=== PATIENT | female | born 1960 | race Caucasian/White ===

== ENCOUNTER 2021-07-02 20:44 | Inpatient (IN) ==
[2021-07-02 21:30] LABS: Basophils # (auto) 0.01 K/uL (0-0.2); Basophils % (auto) 0.2 %; Eosinophils # (auto) 0.14 K/uL (0-0.5); Eosinophils % (auto) 2.6 %; Hematocrit (blood only) 29.1 % (37-47); Hemoglobin 9.5 g/dL (12.0-16.0); Immature Granulocytes # (auto) 0.01 K/uL (0.00-0.02); Immature Granulocytes % (auto) 0.2 %; Lymphocytes # (auto) 0.57 K/uL (1.2-3.4); Lymphocytes % (auto) 10.4 %; Mean Corpuscular Hemoglobin 32.8 pg (25-34); Mean Corpuscular Hgb Conc 32.6 g/dL (32-36); Mean Corpuscular Volume 100.3 fL (80-100); Mean Platelet Volume 10.1 fL (7.4-10.4); Monocytes # (auto) 0.39 K/uL (0.11-0.59); Monocytes % (auto) 7.1 %; Neutrophils # (auto) 4.34 K/uL (1.4-6.5); Neutrophils % (auto) 79.5 %; Platelet Count 105 K/uL (130-400); RDW Coefficient of Variation 16.6 % (11.5-14.5); RDW Standard Deviation 57.3 fL (36.4-46.3); White Blood Count 5.46 K/uL (4.8-10.8)
[2021-07-02 21:46] LABS: Alanine Aminotransferase 16 U/L (12-78); Albumin Globulin Ratio 0.3 (0.9-2); Albumin Level 1.6 gm/dl (3.4-5.0); Alkaline Phosphatase 93 U/L (45-117); Aspartate Aminotransferase 43 U/L (15-37); BUN Creatinine Ratio 18.3 (10-20); Bilirubin,Total 4.3 mg/dl (0.2-1); Blood Urea Nitrogen 36 mg/dl (7-18); Calcium 8.3 mg/dl (8.5-10.1); Carbon Dioxide 23 mmol/L (21-32); Chloride 101 mmol/L (98-107); Est GFR (African American) 30.6 ml/min; Est GFR (Non-African American) 26.4 ml/min; Globulin 4.8 gm/dl (2.5-4.0); Glucose 136 mg/dl (70-99); Potassium 3.6 mmol/L (3.5-5.1); Sodium 134 mmol/L (136-145); Total Protein 6.4 gm/dl (6.4-8.2)
[2021-07-02 22:48] LABS: INR 1.6 (0.9-1.1); Prothrombin Time 16.1 Seconds (9.0-12.0)
[2021-07-02 22:59] LABS: NT Pro B Type Natriuretic Pept 2894 pg/ml (0-900)
--- NOTE | 2021-07-02 23:29 | Emergency Department Note ---
Impression & Plan Anasarca ADMIT ED Provider Note HPI: The patient is a 61-year-old female with a past history of hepatic insufficiency, presents the emergency department today with generalized weakness. Patient has also had increasing lower extremity edema and abdominal swelling. She presents with her niece at the bedside. She states that the patient was supposed to go to a gastroenterology appointment today but was so weak they could not get her to the appointment. They contacted 911 and the patient was sent to a local ER. The details of this visit are unclear however they did leave that outside facility and then drove the patient to this ER via private vehicle to be assessed. On my initial assessment the patient is alert and answers simple questions appropriately with one-word answers. Patient reportedly lives alone and has not been doing well on her own. She is generally ill-appearing with jaundice, somewhat slow to respond to my questions, she is without focal deficits. She does have 3-4+ bilateral lower extremity edema. She is otherwise hemodynamically stable and saturating well on room air on my initial assessment. ROS: -General: Generalized weakness, lethargy and jaundice -Extremities: Bilateral lower extremity edema *10 point review systems was conducted and is otherwise negative unless stated above *Outpatient medications and allergy history reviewed PE: General: Alert, obese, frail appearing, jaundiced HEENT: Normocephalic, atraumatic, trachea midline Eyes: Extraocular eye movement is intact, no scleral erythema Pulmonary: Clear to auscultation bilaterally, no wheezing Cardio: Regular rate and rhythm GI: Abdomen is soft, nontender, distended : No suprapubic tenderness MSK: Patient has 3-4+ edema of the bilateral lower extremities with active weeping of serosanguineous fluid Skin: Jaundice, no rash Neuro: Alert, no focal deficits Psychiatric: Cooperative lunchroom monitor: - An order was placed for continuous cardiac monitoring - Patient was noted to be in sinus rhythm with rate of -- EKG: CT ABDOMEN & PELVIS Without Contrast: Diffuse anasarca. Thickening and infiltration the left breast. Cardiomegaly and pacemaker. Trace pleural effusions. Cirrhosis with portal hypertension; ascites, collaterals and splenomegaly. Cholecystectomy. Colonic diverticula without diverticulitis. Nonspecific thickening in the bowel in light of the fluid and the liver disease. Gastric bypass. Hysterectomy Medical Decision Making: Patient presented to the emergency department with family at the bedside, her niece is at the bedside and states that the patient has not been doing well at home recently, states that she is increasingly lethargic, has difficulty walking around her house, states that they are very concerned about the increased swelling in her lower extremities and her abdomen. CT imaging of the abdomen pelvis does show evidence of diffuse anasarca, I believe this is likely the source of the fluid overload. Patient was given a dose of Lasix here in the ED. She does not have any significant transaminitis but she is jaundiced appearing and has an elevated bilirubin. She has a history of alcoholic cirrhosis, ammonia is within normal limits. In addition, CT imaging of the head was performed as the patient was somewhat lethargic and slow to respond at times and this does not show any evidence of an intracranial process. She does remain hemodynamically stable otherwise here in the ED. I discussed these findings with the family, I think the patient is deconditioned, she is obviously not doing well at home I do not think she is in great shape to be living by herself. Family is in agreement and they would like to pursue possible placement. Patient was given a dose of IV Lasix here in the ED for her fluid overload status secondary to anasarca and liver failure. I did discuss the above findings with the on-call hospitalist, Dr. Khan, who graciously excepted the patient to an inpatient bed for further care. Patient was in agreement she was admitted in stable condition. * Diagnosis: Anasarca, peripheral edema, elevated bilirubin levels, difficulty with ADLs * Disposition: Admission Terrell Linn DO Emergency Medicine Past Med/Surg History Medical History (Updated 07/03/21 @ 03:35 by Terrell Linn DO) Anxiety disorder Atrial fibrillation CHF (congestive heart failure) COPD (chronic obstructive pulmonary disease) Fibromyalgia Hepatic insufficiency Hypertension Liver cirrhosis Osteoarthritis Pacemaker IRREGULAR HEART BEAT 1999 Surgical History Gastric bypass status for obesity H/O shoulder surgery LEFT SHOULDER FX REPAIR (HARDWARE PRESENT) History of cataract surgery RT Hx of cholecystectomy Social History Smoking Status: Never smoker Second Hand Exposure: Yes (IN THE PAST ([place])); Hx Alcohol Use: Yes Hx Substance Use: No Preferred Language: Eritrean Communication Ability: Effective Senior Electrical Estimator Required: No Beliefs That Will Affect Care: None Current Living Situation: Alone Feels Safe at Home: Yes Assistive Devices: Denture - Upper, Glasses and Walker Allergies Allergies Allergy/AdvReac Type Severity Reaction Status Date / Time levetiracetam Allergy Intermediate rash/hives Verified 07/02/21 21:28 Home Meds Home Medications Medication Instructions Recorded Confirmed budesonide-formoterol HFA 160 2 puff INHALATION BID 04/22/18 07/02/21 mcg-4.5 mcg/actuation aerosol inhaler (Symbicort) folic acid 1 mg tablet 1 mg PO DAILY 04/22/18 07/02/21 furosemide 80 mg tablet (Lasix) 80 mg PO BID 04/22/18 07/02/21 gabapentin 400 mg capsule 400 mg PO QID 04/22/18 07/02/21 levothyroxine 50 mcg capsule 50 mcg PO QAM 04/22/18 07/02/21 omeprazole magnesium 20 mg 20 mg PO DAILY 04/22/18 07/02/21 tablet,delayed release (Prilosec OTC) propranolol 20 mg tablet 20 mg PO BID 04/22/18 07/02/21 rifaximin 550 mg tablet (Xifaxan) 550 mg PO BID 04/22/18 07/02/21 spironolactone 50 mg tablet 50 mg PO BID 04/22/18 07/02/21 (Aldactone) vitamin B12 500 mcg-folic acid 400 1 tab PO DAILY 04/22/18 07/02/21 mcg tablet Results & Data (ED) Vital Signs Vital Signs - 24 hr 07/02/21 20:46 07/02/21 21:19 07/02/21 21:30 Pulse Rate 99 H 73 69 Pulse Rate from SpO2 Sensor 73 74 Respiratory Rate 16 11 L 7 L Blood Pressure 115/79 Blood Pressure Mean 91 Blood Pressure Position Sitting Pulse Oximetry 99 96 97 Oxygen Delivery Method Room Air Sepsis Recent Fever Within 48 Hours No Sepsis New/Unexplained Change in Mental Status No Sepsis Action Taken by Nursing No Action Required 07/02/21 22:00 07/02/21 22:30 07/02/21 23:00 Pulse Rate 74 70 65 Pulse Rate from SpO2 Sensor 64 66 Respiratory Rate 13 13 10 L Blood Pressure 132/75 115/79 Blood Pressure Mean 94 91 Blood Pressure Position Pulse Oximetry 96 95 Oxygen Delivery Method Sepsis Recent Fever Within 48 Hours Sepsis New/Unexplained Change in Mental Status Sepsis Action Taken by Nursing 07/02/21 23:30 07/03/21 00:11 07/03/21 00:30 Pulse Rate 75 69 65 Pulse Rate from SpO2 Sensor 78 65 Respiratory Rate 17 20 10 L Blood Pressure 104/69 Blood Pressure Mean 80 Blood Pressure Position Pulse Oximetry 97 92 Oxygen Delivery Method Sepsis Recent Fever Within 48 Hours Sepsis New/Unexplained Change in Mental Status Sepsis Action Taken by Nursing 07/03/21 01:00 07/03/21 01:30 07/03/21 02:00 Pulse Rate 69 74 71 Pulse Rate from SpO2 Sensor 70 71 70 Respiratory Rate 12 13 20 Blood Pressure 99/60 L 115/72 Blood Pressure Mean 73 86 Blood Pressure Position Pulse Oximetry 95 97 96 Oxygen Delivery Method Sepsis Recent Fever Within 48 Hours Sepsis New/Unexplained Change in Mental Status Sepsis Action Taken by Nursing Laboratory Data Result diagrams: 07/02/21 20:55 07/02/21 20:55 Lab Results 07/02/21 07/02/21 07/02/21 Range/Units 20:55 20:55 20:55 WBC 5.46 (4.8-10.8) K/uL RBC 2.90 L (4.2-5.4) M/uL Hgb 9.5 L (12.0-16.0) g/dL Hct 29.1 L (37-47) % MCV 100.3 H (80-100) fL MCH 32.8 (25-34) pg MCHC 32.6 (32-36) g/dL RDW Std Deviation 57.3 H (36.4-46.3) fL RDW Coeff of Shirley 16.6 H (11.5-14.5) % Plt Count 105 L (130-400) K/uL MPV 10.1 (7.4-10.4) fL Immature Gran % (Auto) 0.2 % Neut % (Auto) 79.5 % Lymph % (Auto) 10.4 % Lea % (Auto) 7.1 % Eos % (Auto) 2.6 % Baso % (Auto) 0.2 % Neut # (Auto) 4.34 (1.4-6.5) K/uL Lymph # (Auto) 0.57 L (1.2-3.4) K/uL Lea # (Auto) 0.39 (0.11-0.59) K/uL Eos # (Auto) 0.14 (0-0.5) K/uL Baso # (Auto) 0.01 (0-0.2) K/uL Immature Gran # (Auto) 0.01 (0.00-0.02) K/uL PT (9.0-12.0) Seconds INR (0.9-1.1) Sodium 134 L (136-145) mmol/L Potassium 3.6 (3.5-5.1) mmol/L Chloride 101 (98-107) mmol/L Carbon Dioxide 23 (21-32) mmol/L Anion Gap 11.0 (3-11) BUN 36 H (7-18) mg/dl Creatinine 1.97 H (0.6-1.2) mg/dl Est Cr Clr Drug Dosing Not Reportable Est GFR ( Amer) 30.6 ml/min Est GFR (Non-Af Amer) 26.4 ml/min BUN/Creatinine Ratio 18.3 (10-20) Glucose 136 H (70-99) mg/dl Calcium 8.3 L (8.5-10.1) mg/dl Total Bilirubin 4.3 H (0.2-1) mg/dl AST 43 H (15-37) U/L ALT 16 (12-78) U/L Alkaline Phosphatase 93 (45-117) U/L Ammonia (11-32) umol/L NT-Pro-B Natriuret Pep (0-900) pg/ml Total Protein 6.4 (6.4-8.2) gm/dl Albumin 1.6 L (3.4-5.0) gm/dl Globulin 4.8 H (2.5-4.0) gm/dl Albumin/Globulin Ratio 0.3 L (0.9-2) Lipase (73-393) U/L COVID-19 Eval Order Covid19 at [facility] SARS-CoV-2 (PCR) (Negative) 07/02/21 07/02/21 07/02/21 Range/Units 20:55 22:05 22:05 WBC (4.8-10.8) K/uL RBC (4.2-5.4) M/uL Hgb (12.0-16.0) g/dL Hct (37-47) % MCV (80-100) fL MCH (25-34) pg MCHC (32-36) g/dL RDW Std Deviation (36.4-46.3) fL RDW Coeff of Shirley (11.5-14.5) % Plt Count (130-400) K/uL MPV (7.4-10.4) fL Immature Gran % (Auto) % Neut % (Auto) % Lymph % (Auto) % Lea % (Auto) % Eos % (Auto) % Baso % (Auto) % Neut # (Auto) (1.4-6.5) K/uL Lymph # (Auto) (1.2-3.4) K/uL Lea # (Auto) (0.11-0.59) K/uL Eos # (Auto) (0-0.5) K/uL Baso # (Auto) (0-0.2) K/uL Immature Gran # (Auto) (0.00-0.02) K/uL PT 16.1 H (9.0-12.0) Seconds INR 1.6 H (0.9-1.1) Sodium (136-145) mmol/L Potassium (3.5-5.1) mmol/L Chloride (98-107) mmol/L Carbon Dioxide (21-32) mmol/L Anion Gap (3-11) BUN (7-18) mg/dl Creatinine (0.6-1.2) mg/dl Est Cr Clr Drug Dosing Est GFR ( Amer) ml/min Est GFR (Non-Af Amer) ml/min BUN/Creatinine Ratio (10-20) Glucose (70-99) mg/dl Calcium (8.5-10.1) mg/dl Total Bilirubin (0.2-1) mg/dl AST (15-37) U/L ALT (12-78) U/L Alkaline Phosphatase (45-117) U/L Ammonia (11-32) umol/L NT-Pro-B Natriuret Pep 2894 H (0-900) pg/ml Total Protein (6.4-8.2) gm/dl Albumin (3.4-5.0) gm/dl Globulin (2.5-4.0) gm/dl Albumin/Globulin Ratio (0.9-2) Lipase 99 (73-393) U/L COVID-19 Eval Order SARS-CoV-2 (PCR) NEGATIVE (Negative) 07/02/21 Range/Units 22:08 WBC (4.8-10.8) K/uL RBC (4.2-5.4) M/uL Hgb (12.0-16.0) g/dL Hct (37-47) % MCV (80-100) fL MCH (25-34) pg MCHC (32-36) g/dL RDW Std Deviation (36.4-46.3) fL RDW Coeff of Shirley (11.5-14.5) % Plt Count (130-400) K/uL MPV (7.4-10.4) fL Immature Gran % (Auto) % Neut % (Auto) % Lymph % (Auto) % Lea % (Auto) % Eos % (Auto) % Baso % (Auto) % Neut # (Auto) (1.4-6.5) K/uL Lymph # (Auto) (1.2-3.4) K/uL Lea # (Auto) (0.11-0.59) K/uL Eos # (Auto) (0-0.5) K/uL Baso # (Auto) (0-0.2) K/uL Immature Gran # (Auto) (0.00-0.02) K/uL PT (9.0-12.0) Seconds INR (0.9-1.1) Sodium (136-145) mmol/L Potassium (3.5-5.1) mmol/L Chloride (98-107) mmol/L Carbon Dioxide (21-32) mmol/L Anion Gap (3-11) BUN (7-18) mg/dl Creatinine (0.6-1.2) mg/dl Est Cr Clr Drug Dosing Est GFR ( Amer) ml/min Est GFR (Non-Af Amer) ml/min BUN/Creatinine Ratio (10-20) Glucose (70-99) mg/dl Calcium (8.5-10.1) mg/dl Total Bilirubin (0.2-1) mg/dl AST (15-37) U/L ALT (12-78) U/L Alkaline Phosphatase (45-117) U/L Ammonia 24.0 (11-32) umol/L NT-Pro-B Natriuret Pep (0-900) pg/ml Total Protein (6.4-8.2) gm/dl Albumin (3.4-5.0) gm/dl Globulin (2.5-4.0) gm/dl Albumin/Globulin Ratio (0.9-2) Lipase (73-393) U/L COVID-19 Eval Order SARS-CoV-2 (PCR) (Negative) Administered Medications Discontinued Medications Furosemide (Furosemide 40 Mg/4 Ml Vial) 40 mg IV ONE ONE Stop: 07/03/21 01:22 Last Admin: 07/03/21 01:42 Dose: 40 mg Documented by: [id number] Discharge Plan Visit Data Chief Complaint: Edema To Extremity Stated Complaint: CHF, CHEST PAINS, FLUID IN LEGS AND AROUND HEART ED Provider: Terrell Linn Discharge Problem: Anasarca Discharge Instructions Interventions: ED Discharge Assessment Last Done: 07/03/21 02:34
[2021-07-03 00:20] LABS: Lipase 99 U/L (73-393)
[2021-07-03] MEDS ORDERED: FUROSEMIDE 40 MG/4 ML VIAL IV ONE (01:21)
--- NOTE | 2021-07-03 02:28 | History & Physical Report ---
Date of Service July 03, 2021 Assessment & Plan (1) CAD (coronary artery disease): Plan: 61 yo F with hx alcoholic cirrhosis, CHF, CAD, COPD, pacemaker admitted for progressive weakness and worsening anasarca. Anasarca secondary to hepatorenal vs. cardiorenal syndrome - emmett peripheral edema in setting of cirrhosis and CHF with unknown ejection fraction - possible decompensated cirrhosis vs. decompensated congestive heart failure ca using acute renal injury (no baseline creatinine) - lasix switched from 80 mg PO BID to 80 mg IV BID. received 40 mg IV x1 in ED. - daily bmp Alcoholic cirrhosis - MELD score 26, 19.6% 3 month mortality - Child Garrett Class C, life expectancy 1-3 years - no longer drinking alcohol - continue rifaximin, spironolactone, propranolol. - continue Vit B12/folic acid supplementation - ammonia normal, not on lactulose - repeat hepatic panel, PT/INR for monitoring Blood Dyscrasias - Hg 9.5, transfusion threshold <7. Macrocytosis - Plt 105, transfusion threshold <10k without bleeding, <30k if bleeding - trend CBC CHF - per history, no echo on file - bnp [id number] - tte for worsening failure - lasix as above - naidu for improving I/O monitoring Chronic Conditions COPD : daily symbicort, no exacerbation Depression/Anxiety : not on medication therapy Fibromyalgia: Gabapentin 400 QID at home -- maximum maintenance dose with GFR 26 is 600 mg/day in 1-2 divided doses. Dose cut to 300 BID. DVT ppx: chemical ppx in elevated INR. SCDs FEN/GI: heart healthy, low salt Bowel regimen: NA Code Status: Full Code Dispo: Med/Surg (2) Depression: (3) Anxiety disorder: (4) CHF (congestive heart failure): (5) COPD (chronic obstructive pulmonary disease): (6) Liver cirrhosis: (7) Pacemaker: (8) Hypertension: (9) Acute kidney injury: History of Present Illness Primary Care Provider: Yemi Guidry 61 yo F with hx alcoholic cirrhosis, CHF, CAD, COPD, pacemaker brought to ER by her daughter for feeling progressively ill over the past 2 to 3 weeks. She denies any particular event that happened a few weeks ago but says that she feels like she has been doing very well. She denies any fevers chills, chest pain, shortness of breath. She feels generally weak currently lives alone at home and her daughter helps take care of her. She follows with a [facility] hepatologists and had an appointment on 07/04 to follow-up with them. She has been able to take all of her medications and say no recent changes been made. Allergies Allergy/AdvReac Type Severity Reaction Status Date / Time levetiracetam Allergy Intermediate rash/hives Verified 07/02/21 21:28 Home Medications Medication Instructions Recorded Confirmed Type budesonide-formoterol HFA 160 2 puff INHALATION BID 04/22/18 07/02/21 History mcg-4.5 mcg/actuation aerosol inhaler (Symbicort) folic acid 1 mg tablet 1 mg PO DAILY 04/22/18 07/02/21 History furosemide 80 mg tablet (Lasix) 80 mg PO BID 04/22/18 07/02/21 History gabapentin 400 mg capsule 400 mg PO QID 04/22/18 07/02/21 History levothyroxine 50 mcg capsule 50 mcg PO QAM 04/22/18 07/02/21 History omeprazole magnesium 20 mg 20 mg PO DAILY 04/22/18 07/02/21 History tablet,delayed release (Prilosec OTC) propranolol 20 mg tablet 20 mg PO BID 04/22/18 07/02/21 History rifaximin 550 mg tablet (Xifaxan) 550 mg PO BID 04/22/18 07/02/21 History spironolactone 50 mg tablet 50 mg PO BID 04/22/18 07/02/21 History (Aldactone) vitamin B12 500 mcg-folic acid 400 1 tab PO DAILY 04/22/18 07/02/21 History mcg tablet Past Med/Surg History Medical History (Updated 07/03/21 @ 03:35 by Terrell Linn DO) Anxiety disorder Atrial fibrillation CHF (congestive heart failure) COPD (chronic obstructive pulmonary disease) Fibromyalgia Hepatic insufficiency Hypertension Liver cirrhosis Osteoarthritis Pacemaker IRREGULAR HEART BEAT 1999 Surgical History Gastric bypass status for obesity H/O shoulder surgery LEFT SHOULDER FX REPAIR (HARDWARE PRESENT) History of cataract surgery RT Hx of cholecystectomy Social History Smoking Status: Never smoker Second Hand 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)); Hx Alcohol Use: Yes Hx Substance Use: No Preferred Language: Pashto Communication Ability: Effective Professor Of Theology Required: No Beliefs That Will Affect Care: None Current Living Situation: Alone Feels Safe at Home: Yes Assistive Devices: Denture - Upper, Glasses and Walker Review of Systems Constitutional: no fever, no chills, no body aches and no fatigue Respiratory: no cough and no dyspnea Cardiovascular: no chest pain, no dyspnea and no edema Gastrointestinal: no abdominal pain, no nausea, no vomiting, no constipation and no diarrhea/loose stools Genitourinary: no dysuria Neurologic: no tingling, no numbness, no dizziness and no confusion Physical Exam Physical Exam: Constitutional: obese, jaundiced, lethargic appearing, in no apparent distress Eyes: EOMI, pupils equal and reactive bilaterally, no scleral icterus Cardiac: RRR,2/6 systolic murmur, gallops or rubs. Normal S1, S2 Pulm: CTA BL, no wheezes, rhonchi, crackles or rubs, moving air well throughout both lungs on room air Abd: soft, nontender, distended, somewhat firm but compressible, normal bowel sounds, no rebound or guarding. 1+ pitting edema on abdomen. multiple excoriations of abdomen. Extremities: 4+ pitting edema to the hips bilaterally, seeping fluid from extremities Neuro: fatigued, A&Ox3 Results & Data Results & Data ([facility]) Vital Signs (Past 12 Hours) Vital Signs Pulse Resp BP Pulse Ox 07/03/21 02:00 71 20 115/72 96 07/03/21 01:30 74 13 97 07/03/21 01:00 69 12 99/60 L 95 07/03/21 00:30 65 10 L 92 07/03/21 00:11 69 20 104/69 07/02/21 23:30 75 17 97 07/02/21 23:00 65 10 L 115/79 95 07/02/21 22:30 70 13 96 07/02/21 22:00 74 13 132/75 07/02/21 21:30 69 7 L 97 07/02/21 21:19 73 11 L 96 07/02/21 20:46 99 H 16 115/79 99 Laboratory Results Laboratory Results WBC 5.46 K/uL (4.8-10.8) 07/02/21 20:55 RBC 2.90 M/uL (4.2-5.4) L 07/02/21 20:55 Hgb 9.5 g/dL (12.0-16.0) L 07/02/21 20:55 Hct 29.1 % (37-47) L 07/02/21 20:55 MCV 100.3 fL (80-100) H 07/02/21 20:55 MCH 32.8 pg (25-34) 07/02/21 20:55 MCHC 32.6 g/dL (32-36) 07/02/21 20:55 RDW Std Deviation 57.3 fL (36.4-46.3) H 07/02/21 20:55 RDW Coeff of Shirley 16.6 % (11.5-14.5) H 07/02/21 20:55 Plt Count 105 K/uL (130-400) L 07/02/21 20:55 MPV 10.1 fL (7.4-10.4) 07/02/21 20:55 Immature Gran % (Auto) 0.2 % 07/02/21 20:55 Neut % (Auto) 79.5 % 07/02/21 20:55 Lymph % (Auto) 10.4 % 07/02/21 20:55 Cataño % (Auto) 7.1 % 07/02/21 20:55 Eos % (Auto) 2.6 % 07/02/21 20:55 Baso % (Auto) 0.2 % 07/02/21 20:55 Neut # (Auto) 4.34 K/uL (1.4-6.5) 07/02/21 20:55 Lymph # (Auto) 0.57 K/uL (1.2-3.4) L 07/02/21 20:55 Cataño # (Auto) 0.39 K/uL (0.11-0.59) 07/02/21 20:55 Eos # (Auto) 0.14 K/uL (0-0.5) 07/02/21 20:55 Baso # (Auto) 0.01 K/uL (0-0.2) 07/02/21 20:55 Immature Gran # (Auto) 0.01 K/uL (0.00-0.02) 07/02/21 20:55 PT 16.1 Seconds (9.0-12.0) H 07/02/21 22:05 INR 1.6 (0.9-1.1) H 07/02/21 22:05 Sodium 134 mmol/L (136-145) L 07/02/21 20:55 Potassium 3.6 mmol/L (3.5-5.1) 07/02/21 20:55 Chloride 101 mmol/L (98-107) 07/02/21 20:55 Carbon Dioxide 23 mmol/L (21-32) 07/02/21 20:55 Anion Gap 11.0 (3-11) 07/02/21 20:55 BUN 36 mg/dl (7-18) H 07/02/21 20:55 Creatinine 1.97 mg/dl (0.6-1.2) H 07/02/21 20:55 Est Cr Clr Drug Dosing Not Reportable 07/02/21 20:55 Est GFR ( Amer) 30.6 ml/min 07/02/21 20:55 Est GFR (Non-Af Amer) 26.4 ml/min 07/02/21 20:55 BUN/Creatinine Ratio 18.3 (10-20) 07/02/21 20:55 Glucose 136 mg/dl (70-99) H 07/02/21 20:55 Calcium 8.3 mg/dl (8.5-10.1) L 07/02/21 20:55 Total Bilirubin 4.3 mg/dl (0.2-1) H 07/02/21 20:55 AST 43 U/L (15-37) H 07/02/21 20:55 ALT 16 U/L (12-78) 07/02/21 20:55 Alkaline Phosphatase 93 U/L (45-117) 07/02/21 20:55 Ammonia 24.0 umol/L (11-32) 07/02/21 22:08 NT-Pro-B Natriuret Pep 2894 pg/ml (0-900) H 07/02/21 22:05 Total Protein 6.4 gm/dl (6.4-8.2) 07/02/21 20:55 Albumin 1.6 gm/dl (3.4-5.0) L 07/02/21 20:55 Globulin 4.8 gm/dl (2.5-4.0) H 07/02/21 20:55 Albumin/Globulin Ratio 0.3 (0.9-2) L 07/02/21 20:55 Lipase 99 U/L (73-393) 07/02/21 22:05 COVID-19 Eval Order Covid19 at [facility] 07/02/21 20:55 SARS-CoV-2 (PCR) NEGATIVE (Negative) 07/02/21 20:55 Supervising Physician Co-Signing Physician Notes Patient seen and examined, chart reviewed, case discussed with Dr. Munguia and I agree with her assessment and plan as above. In brief, patient is a 61yo female with alcoholic cirrhosis of the liver presenting with 2-3 weeks of progressive edema, weight gain, overall doing poorly at home. Denies fever, but has had some chills. Denies cough, SOB, chest pain, abdominal pain, nausea, vomiting, diarrhea, hematemesis Exam - afebrile, HD stable, NAD Skin -+jaundice HEENT - MMM, neck supple Heart - +S1/S2, regular, no m/r/g Lungs - CTA Abd - distended, soft, NT, bulging flanks Ext - 4+ pitting edema of bilateral LE Neuro - slow to respond, no focal deficits, no asterixis Labs and images reviewed CBC consistent with underlying liver disease - macrocytic anemia dn thrombocytopenia Elevated INR of 1.6 Elevated BUn 36, Cr 1.97 with unknown baseline Tbili=4.3 [id number] Unknown baseline labs Assessment/Plan- 61yo female with hepatic cirrhosis presenting with progressive decline, edema, weight gain. Uncertain if laboratory findings are acutely worse than baseline - will request outpatient records and latest blood work. Lasix 80mg IV BID with careful attention to renal function and electrolytes PT/OT evaluation for possible placement needs Continue Spironolactone, Rifaximin, Propranolol Check 2D echo Resident Activity Tracking Resident Involvement: Resident Care Provided Care Provided: Adult [facility] Medicine
[2021-07-03 04:40] LABS: Appearance Urine Clear (Clear); Bilirubin Urine Negative (Negative); Blood Urine Negative (Negative); Color Urine Yellow; Glucose Urine UA Negative (Negative); Ketones Urine Negative (Negative); Leukocyte Esterase Urine Negative (Negative); Nitrite Urine Negative (Negative); Protein Urine Negative (Negative); Specific Gravity Urine 1.008 (1.000-1.030); Urobilinogen Urine Negative (Negative)
--- NOTE | 2021-07-03 05:16 | Billing Data ---
Date of Service July 03, 2021 Coding Level of Care Code 98875 Initial Inpt Care Lvl 3
[2021-07-03] MEDS ORDERED: FLUARIX QUADRIVALENT 0.5 ML SYR IM ONE (06:24)
[2021-07-03] MEDS ORDERED: LEVOTHYROXINE SODIUM 50 MCG TABLET PO SCH (06:30)
--- NOTE | 2021-07-03 06:52 | CT Scan Report ---
CT head/brain wo con CLINICAL HISTORY: 61 years-old Female with AMS. Acutely altered mental status TECHNIQUE: Multiple axial CT images of the head were obtained without contrast. A dose lowering tech nique was utilized adhering to the principles of ALARA. COMPARISON: None. FINDINGS: No acute intracranial hemorrhage, midline shift, intracranial mass, hydrocephalus, territorial ischem ia or abnormal extra-axial collection. Age-related involutional changes. Mild white matter hypodensit ies suggest chronic microvascular ischemic disease. Ill-defined area of decreased attenuation measuri ng approximately 1.3 cm within the right frontal lobe centrum semiovale on image 25 series 2, likely on a basis of chronic microvascular ischemic disease. The calvarium is intact. Prior bilateral lens repair. The paranasal sinuses, mastoid air cells, and m iddle ear cavities are clear. IMPRESSION: No acute intracranial abnormality. ACT 112: Negative or not required by law. The above report was generated using voice recognition software. It may contain grammatical, syntax o r spelling errors. Electronically signed by: Vicente Calvillo M.D. 07/03/2021 6:51 AM
[2021-07-03] MEDS: FUROSEMIDE 40 MG/4 ML VIAL IV SCH ×2 (08:03→20:47)
[2021-07-03] MEDS: PROPRANOLOL HCL 20 MG TAB PO SCH (08:04)
[2021-07-03] MEDS: SPIRONOLACTONE 25 MG TAB PO SCH ×2 (08:04→20:45)
[2021-07-03] MEDS: PANTOprazole 40 MG TAB PO SCH (08:04)
[2021-07-03] MEDS: GABAPENTIN 300 MG CAP PO SCH ×2 (08:05→20:45)
[2021-07-03] MEDS: rifAXIMin 550 MG TABLET PO SCH ×2 (08:05→20:45)
[2021-07-03] MEDS: FLUTICASONE/VILANTEROL 100/25MCG 14 PUFFS/INHALER INH SCH (08:19)
--- NOTE | 2021-07-03 08:20 | CT Scan Report ---
CT SCAN OF THE ABDOMEN AND PELVIS WITHOUT IV CONTRAST CLINICAL HISTORY: Jaundice. Generalized edema. COMPARISON STUDY: Fluoroscopic upper GI series dated 01/22/2015. TECHNIQUE: CT scan of the abdomen and pelvis is performed from the lung bases to the proximal femora. Images are reviewed in the axial, sagittal, and coronal planes. IV contrast was not administered for this examination. Note that the examination is significantly suboptimal without oral and IV contrast . There is also motion artifact, and streak artifact from the arms which could not be elevated above the abdomen. A dose lowering technique was utilized adhering to the principles of ALARA. CT DOSE: 2538.29 mGy.cm FINDINGS: Lung bases: The heart is mildly enlarged and without pericardial effusion. Pacemaker leads are in lawrence ce. There are trace pleural effusions with dependent atelectasis. There is a small hiatal hernia. Eso phageal varices are noted. Liver: The unenhanced liver is cirrhotic in morphology and heterogeneous in attenuation. There is mil d hypertrophy of the left lobe and nodularity of the hepatic surface contour. There is no intrahepati c biliary ductal dilatation. Gallbladder: Surgically absent noting clips in the gallbladder fossa. Spleen: Top normal in size and homogeneous in attenuation. Pancreas: The unenhanced pancreas is atrophic and grossly unremarkable. Adrenal glands: Unremarkable. Kidneys: The unenhanced kidneys are atrophic and without hydronephrosis. There are no renal calculi i dentified. There is no evidence of contour deforming renal mass lesion. Abdominal vasculature: The abdominal aorta is normal in course and caliber noting advanced atheroscle rotic calcification. Bowel: There is moderate to advanced colonic diverticulosis without clear CT evidence of acute divert iculitis. No bowel obstruction is identified wall thickening of the right colon is nonspecific and li jamir represents portal colopathy. Postoperative change is consistent with a history of gastric bypass surgery. The appendix is normal as visualized. Peritoneum: There is a moderate volume of abdominopelvic ascites. No intraperitoneal free air is seen . Postoperative change is noted in the ventral abdominal wall. Lymphadenopathy: There are numerous mildly enlarged upper abdominal lymph nodes. A gastrohepatic node measures 17 mm in short axis. Pelvic viscera: The bladder is normal as visualized. The uterus is surgically absent. No adnexal lesi on is seen. Skeletal structures: The skeletal structures are osteopenic. No lytic or blastic lesions are seen. Th ere are healed left-sided rib fractures. Mild to moderate lumbosacral spondylosis is observed. Soft tissues: There is anasarca of the body wall. Asymmetric soft tissue edema is seen within the lef t chest wall and in the left breast where there is overlying dermal thickening. IMPRESSION: 1. Significantly suboptimal examination without oral and IV contrast. The examination is also comprom ised by streak and motion. 2. Cirrhotic liver morphology. 3. A moderate volume of abdominopelvic ascites and esophageal varices indicate portal hypertension. 4. Wall thickening of the right colon is nonspecific and likely related to portal colopathy. Clinical correlation will be required. 5. Cardiomegaly and small pleural effusions. 6. Mildly enlarged upper abdominal lymph nodes are nonspecific and likely related to chronic liver di sease. 7. There is anasarca of the body wall. 8. Asymmetric soft tissue edema is noted in the left chest wall/breast with overlying dermal thickeni ng. Correlate clinically. 9. Additional findings as above. ACT 112: Negative or not required by law. Electronically signed by: Ganesh Crowley M.D. 07/03/2021 8:19 AM
--- NOTE | 2021-07-03 08:36 | XRay Report ---
XR chest 1V portable HISTORY: 61 years-old Female chf acute shortness of breath with congestive heart failure COMPARISON: CT abdomen and pelvis of same day TECHNIQUE: Portable AP view of the chest FINDINGS: Cardiac silhouette is enlarged. Left subclavian pacer. Mild pulmonary vascular congestion without ove rt pulmonary edema. Trace pleural effusions. No pneumothorax. Degenerative changes of the shoulders a nd spine with ORIF changes of the left proximal humerus. IMPRESSION: 1. Cardiomegaly and pulmonary vascular congestion without overt pulmonary edema. 2. Trace pleural effusions. ACT 112: Negative or not required by law. The above report was generated using voice recognition software. It may contain grammatical, syntax o r spelling errors. Electronically signed by: Vicente Calvillo M.D. 07/03/2021 8:34 AM
--- NOTE | 2021-07-03 08:48 | Electrocardiogram Report ---
Test Reason : Blood Pressure : / mmHG Vent. Rate : 069 BPM Atrial Rate : 086 BPM P-R Int : 000 ms QRS Dur : 072 ms QT Int : 418 ms P-R-T Axes : 000 -19 166 degrees QTc Int : 447 ms Atrial fibrillation with occasional ventricular-paced complexes Low voltage QRS Possible Old Inferior infarct Possible Old Anterolateral infarct Abnormal ECG No previous ECGs available Confirmed by Laurent Sheehan ([id number]) on 07/03/2021 8:47:37 AM Referred By: REFERRED SELF Confirmed By:Laurent Sheehan
[2021-07-03] MEDS ORDERED: FUROSEMIDE 40 MG/4 ML VIAL IV SCH (09:00)
[2021-07-03] MEDS ORDERED: NON-FORMULARY MEDICATION (Vitamin B12-Folic Acid 500-400 mcg Tablet) PO SCH (09:00)
[2021-07-03] MEDS ORDERED: GABAPENTIN 400 MG CAP PO SCH ×2 (09:00)
--- NOTE | 2021-07-03 09:20 | XCELERA ---
[id number]
[2021-07-03 10:05] LABS: Albumin Level 1.6 gm/dl (3.4-5.0); BUN Creatinine Ratio 21.4 (10-20); Bilirubin,Total 4.4 mg/dl (0.2-1); Calcium 8.5 mg/dl (8.5-10.1); Creatinine Clr Calc Pharmacy 44.3 ml/min; Est GFR (African American) 37.6 ml/min; Est GFR (Non-African American) 32.5 ml/min; Potassium 3.6 mmol/L (3.5-5.1); Total Protein 5.9 gm/dl (6.4-8.2)
[2021-07-03 14:28] LABS: Hematocrit (blood only) 29.1 % (37-47); Hemoglobin 9.6 g/dL (12.0-16.0); Mean Corpuscular Hemoglobin 32.4 pg (25-34); Mean Corpuscular Volume 98.3 fL (80-100); RDW Coefficient of Variation 16.4 % (11.5-14.5); RDW Standard Deviation 55.8 fL (36.4-46.3); Red Blood Count 2.96 M/uL (4.2-5.4); White Blood Count 5.88 K/uL (4.8-10.8)
[2021-07-03 14:42] LABS: INR 1.6 (0.9-1.1)
[2021-07-03 14:51] LABS: Mean Platelet Volume 10.5 fL (7.4-10.4); Platelet Count 70 K/uL (130-400)
[2021-07-03 14:52] LABS: Acanthocytes 1+; Basophils # (auto) 0.03 K/uL (0-0.2); Basophils % (auto) 0.5 %; Echinocytes 2+; Eosinophils # (auto) 0.17 K/uL (0-0.5); Eosinophils % (auto) 2.9 %; Immature Granulocytes # (auto) 0.02 K/uL (0.00-0.02); Immature Granulocytes % (auto) 0.3 %; Lymphocytes # (auto) 0.51 K/uL (1.2-3.4); Lymphocytes % (auto) 8.7 %; Monocytes # (auto) 0.35 K/uL (0.11-0.59); Neutrophils % (auto) 81.6 %; Platelet Estimate Decreased (Normal)
[2021-07-03] MEDS: oxyCODONE HCL IR 5 MG TAB (IMMEDIATE RELEASE) PO PRN ×2 (15:44→20:39)
--- NOTE | 2021-07-03 16:33 | Gastrointestinal Consultation ---
Date of Consultation July 03, 2021 Assessment & Plan (1) Liver cirrhosis: (2) Ascites due to alcoholic cirrhosis: (3) Anasarca: (4) Dependent edema: (5) Hepatic encephalopathy: (6) Acute kidney injury: (7) Hypoalbuminemia: (8) Portal hypertension with esophageal varices: (9) Hepatic insufficiency: (10) Coagulopathy: (11) Thrombocytopenia: (12) Gastric bypass status for obesity: (13) Hx of cholecystectomy: Impression is progression of advanced chronic liver disease with portal hypertension complicated by progressive ascites and edema, encephalopathy, jaundice, renal insufficiency, possible acute kidney injury, hypoalbuminemia. We do not know if there has been acute deterioration in renal function as we do not have any recent lab testing to see if BUN/Cr are increasing acutely. She could have prerenal azotemia, ATN, or developing hepatorenal syndrome. I recommend continuing the rifaximin and midodrine, discontinuing lasix, aldactone, and propranolol, give albumin 1 gm/kg up to 100 gm per day for 2 days, monitor BUN/Cr and electrolytes, urine output, check spot urine electrolytes, and consult nephrology LORA for evaluation of renal function and management of fluids. Diagnostic and therapeutic paracentesis should be performed with withdrawal of no more than 6 liters of ascites, specimens to the lab for WBC count and differential, gm stain and culture, albumin, and simultaneous blood draw for serum albumin to calculate serum to ascites albumin gradient. We will follow the patient with the care team and assist as needed. 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 The patient and her daughter described progressive deterioration since April with increase in dependent edema, increasing ascites, jaundice, episodes of mental confusion, generalized weakness. She was evaluated at [facility] in [place] for management of cirrhosis, and a transplant workup was recommended, but the patient missed her follow up appointment in April. At home she was taking spironolactone, midodrine propranolol, Xifaxan, and folic acid. Lasix was prescribed but she was not taking this, She came to [facility] due to concern for progressive deterioration and unmanageable dependent edema with a right leg pretibial injury. At [facility] she was found to have elevated BUN and Creatinine, with no previous values for trending of possible acute kidney injury She had blessing en Y gastric bypass for management of obesity in the distant past. Allergies Allergy/AdvReac Type Severity Reaction Status Date / Time levetiracetam Allergy Intermediate rash/hives Verified 07/02/21 21:28 Home Medications Medication Instructions Recorded Confirmed Type budesonide-formoterol HFA 160 2 puff INHALATION BID 04/22/18 07/02/21 History mcg-4.5 mcg/actuation aerosol inhaler (Symbicort) folic acid 1 mg tablet 1 mg PO DAILY 04/22/18 07/02/21 History furosemide 80 mg tablet (Lasix) 80 mg PO BID 04/22/18 07/02/21 History gabapentin 400 mg capsule 400 mg PO QID 04/22/18 07/02/21 History levothyroxine 50 mcg capsule 50 mcg PO QAM 04/22/18 07/02/21 History omeprazole magnesium 20 mg 20 mg PO DAILY 04/22/18 07/02/21 History tablet,delayed release (Prilosec OTC) propranolol 20 mg tablet 20 mg PO BID 04/22/18 07/02/21 History rifaximin 550 mg tablet (Xifaxan) 550 mg PO BID 04/22/18 07/02/21 History spironolactone 50 mg tablet 50 mg PO BID 04/22/18 07/02/21 History (Aldactone) vitamin B12 500 mcg-folic acid 400 1 tab PO DAILY 04/22/18 07/02/21 History mcg tablet Patient History Medical History (Updated 07/03/21 @ 16:14 by Leonid Cerna MD) Anxiety disorder Atrial fibrillation CHF (congestive heart failure) COPD (chronic obstructive pulmonary disease) Fibromyalgia Hepatic insufficiency Hypertension Liver cirrhosis Osteoarthritis Pacemaker IRREGULAR HEART BEAT 1999 Surgical History Gastric bypass status for obesity H/O shoulder surgery LEFT SHOULDER FX REPAIR (HARDWARE PRESENT) History of cataract surgery RT Hx of cholecystectomy Social History Smoking Status: Never smoker Second Hand Exposure: No; Do You Dip or Chew Tobacco: No; Hx Alcohol Use: Yes Alcohol type: wine and hard liquor Hx Substance Use: No Preferred Language: Turkmen Communication Ability: Effective Bottle Label Inspector Required: No Beliefs That Will Affect Care: None Current Living Situation: Alone Other Information That Helps Us Care for You: No Feels Safe at Home: Yes Safety Concerns: Feels Safe At This Time Assistive Devices: Walker Review of Systems Respiratory: She denied shortness of breath Cardiovascular: Additional Comments: Positive for recent substernal chest discomfort, not exertion related Gastrointestinal: She denied hematemesis, melena, hematochezia Neurologic: Episodic confusion Physical Exam Constitutional: Afebrile, Jaundiced, she is alert but appears lethargic, with slurred speech, but oriented X 3 and cooperative, conversant, normal thought processes Eyes: scleral icterus Respiratory: normal respiratory effort, able to speak in complete sentences and symmetric chest movement Auscultation: lungs clear to auscultation bilaterally dyspneic at rest with tachypnea but she denies shortness of breath Cardiovascular: Normal heart tones and rhythm Gastrointestinal (Abdomen): Obese distended abdomen which is soft without guarding, without localized or generalized tenderness, I was unable to demonstr ate shifting dullness or fluid wave. Abdominal wall edema Musculoskeletal: Severe lower extremity edema, the right pretibial wound is covered and not visible Skin: Obvious Jaundice Neurologic: Alert, oriented and conversant with slurred speech, appropriate responses. Results & Data ([facility]) Vital Signs (Past 12 Hours) Vital Signs Temp Pulse Resp BP Pulse Ox 07/03/21 15:37 36.6 C 75 16 118/79 96 07/03/21 07:47 36.2 C L 73 16 108/74 96 Laboratory Results Laboratory Results WBC 5.88 K/uL (4.8-10.8) 07/03/21 14:11 RBC 2.96 M/uL (4.2-5.4) L 07/03/21 14:11 Hgb 9.6 g/dL (12.0-16.0) L 07/03/21 14:11 Hct 29.1 % (37-47) L 07/03/21 14:11 MCV 98.3 fL (80-100) 07/03/21 14:11 MCH 32.4 pg (25-34) 07/03/21 14:11 MCHC 33.0 g/dL (32-36) 07/03/21 14:11 RDW Std Deviation 55.8 fL (36.4-46.3) H 07/03/21 14:11 RDW Coeff of Shirley 16.4 % (11.5-14.5) H 07/03/21 14:11 Plt Count 70 K/uL (130-400) L 07/03/21 14:11 MPV 10.5 fL (7.4-10.4) H 07/03/21 14:11 Immature Gran % (Auto) 0.3 % 07/03/21 14:11 Neut % (Auto) 81.6 % 07/03/21 14:11 Lymph % (Auto) 8.7 % 07/03/21 14:11 Lajas % (Auto) 6.0 % 07/03/21 14:11 Eos % (Auto) 2.9 % 07/03/21 14:11 Baso % (Auto) 0.5 % 07/03/21 14:11 Neut # (Auto) 4.80 K/uL (1.4-6.5) 07/03/21 14:11 Lymph # (Auto) 0.51 K/uL (1.2-3.4) L 07/03/21 14:11 Lajas # (Auto) 0.35 K/uL (0.11-0.59) 07/03/21 14:11 Eos # (Auto) 0.17 K/uL (0-0.5) 07/03/21 14:11 Baso # (Auto) 0.03 K/uL (0-0.2) 07/03/21 14:11 Immature Gran # (Auto) 0.02 K/uL (0.00-0.02) 07/03/21 14:11 Absolute Nucleated RBC Cancelled 07/03/21 09:48 Nucleated RBC % (auto) Cancelled 07/03/21 09:48 Neutrophils % (Manual) Cancelled 07/03/21 09:48 Band Neutrophils % Cancelled 07/03/21 09:48 Lymphocytes % (Manual) Cancelled 07/03/21 09:48 Prolymphocyte % Cancelled 07/03/21 09:48 Reactive Lymphs % (Man) Cancelled 07/03/21 09:48 Monocytes % (Manual) Cancelled 07/03/21 09:48 Eosinophils % (Manual) Cancelled 07/03/21 09:48 Basophils % (Manual) Cancelled 07/03/21 09:48 Metamyelocytes % (Man) Cancelled 07/03/21 09:48 Myelocytes % (Man) Cancelled 07/03/21 09:48 Promyelocytes % (Man) Cancelled 07/03/21 09:48 Blast Cells % (Manual) Cancelled 07/03/21 09:48 Plasma Cell % (Manual) Cancelled 07/03/21 09:48 Other Cells % Cancelled 07/03/21 09:48 Nucleated RBC % Cancelled 07/03/21 09:48 Neutrophils # (Manual) Cancelled 07/03/21 09:48 Band Neutrophils # Cancelled 07/03/21 09:48 Total Absolute Neuts Cancelled 07/03/21 09:48 Lymphocytes # (Manual) Cancelled 07/03/21 09:48 Prolymphocyte # Cancelled 07/03/21 09:48 Reactive Lymphs # Cancelled 07/03/21 09:48 Total Abs Lymphocytes Cancelled 07/03/21 09:48 Monocytes # (Manual) Cancelled 07/03/21 09:48 Eosinophils # (Manual) Cancelled 07/03/21 09:48 Basophils # (Manual) Cancelled 07/03/21 09:48 Metamyelocytes # (Man) Cancelled 07/03/21 09:48 Myelocytes # (Manual) Cancelled 07/03/21 09:48 Promyelocytes # (Man) Cancelled 07/03/21 09:48 Blast Cells # (Man) Cancelled 07/03/21 09:48 Plasma Cell # (Manual) Cancelled 07/03/21 09:48 Other Cells # Cancelled 07/03/21 09:48 Nucleated RBCs # (Man) Cancelled 07/03/21 09:48 Hypersegmented Neuts Cancelled 07/03/21 09:48 Hyposegmented Neuts Cancelled 07/03/21 09:48 Hypogranular Neuts Cancelled 07/03/21 09:48 Large Granular Lymphs Cancelled 07/03/21 09:48 # Lrg Granular Lymphs Cancelled 07/03/21 09:48 Hairy Cells Cancelled 07/03/21 09:48 Smudge Cells Cancelled 07/03/21 09:48 Toxic Granulation Cancelled 07/03/21 09:48 Toxic Vacuolation Cancelled 07/03/21 09:48 Dohle Bodies Cancelled 07/03/21 09:48 Kaz Rods Cancelled 07/03/21 09:48 Platelet Estimate Decreased (Normal) L 07/03/21 14:11 Hypogranular Platelets Cancelled 07/03/21 09:48 Clumped Platelets Cancelled 07/03/21 09:48 Giant Platelets Cancelled 07/03/21 09:48 Platelet Satelliting Cancelled 07/03/21 09:48 RBC Morphology Cancelled 07/03/21 09:48 Polychromasia Cancelled 07/03/21 09:48 Hypochromasia Cancelled 07/03/21 09:48 Poikilocytosis Cancelled 07/03/21 09:48 Basophilic Stippling Cancelled 07/03/21 09:48 Anisocytosis Cancelled 07/03/21 09:48 Microcytosis Cancelled 07/03/21 09:48 Macrocytosis Cancelled 07/03/21 09:48 Spherocytes Cancelled 07/03/21 09:48 Pappenheimer Bodies Cancelled 07/03/21 09:48 Sickle Cells Cancelled 07/03/21 09:48 Target Cells Cancelled 07/03/21 09:48 Tear Drop Cells Cancelled 07/03/21 09:48 Ovalocytes Cancelled 07/03/21 09:48 Stomatocytes Cancelled 07/03/21 09:48 Mahmood-Selfridge Bodies Cancelled 07/03/21 09:48 Echinocytes 2+ 07/03/21 14:11 Acanthocytes (Spur) 1+ 07/03/21 14:11 Rouleaux Cancelled 07/03/21 09:48 RBC Agglutinates Cancelled 07/03/21 09:48 Schistocytes Cancelled 07/03/21 09:48 RBC Morph Comment Cancelled 07/03/21 09:48 Sezary Cell Cancelled 07/03/21 09:48 PT 16.0 Seconds (9.0-12.0) H 07/03/21 14:11 INR 1.6 (0.9-1.1) H 07/03/21 14:11 Sodium 134 mmol/L (136-145) L 07/03/21 09:01 Potassium 3.6 mmol/L (3.5-5.1) 07/03/21 09:01 Chloride 101 mmol/L (98-107) 07/03/21 09:01 Carbon Dioxide 25 mmol/L (21-32) 07/03/21 09:01 Anion Gap 8.0 (3-11) 07/03/21 09:01 BUN 35 mg/dl (7-18) H 07/03/21 09:01 Creatinine 1.66 mg/dl (0.6-1.2) H D 07/03/21 09:01 Est Cr Clr Drug Dosing 44.3 ml/min 07/03/21 09:01 Est GFR ( Amer) 37.6 ml/min 07/03/21 09:01 Est GFR (Non-Af Amer) 32.5 ml/min 07/03/21 09:01 BUN/Creatinine Ratio 21.4 (10-20) H 07/03/21 09:01 Glucose 96 mg/dl (70-99) 07/03/21 09:01 Calcium 8.5 mg/dl (8.5-10.1) 07/03/21 09:01 Total Bilirubin 4.4 mg/dl (0.2-1) H 07/03/21 09:01 Direct Bilirubin 2.0 mg/dl (0-0.2) H 07/03/21 09:01 AST 49 U/L (15-37) H 07/03/21 09:01 ALT 16 U/L (12-78) 07/03/21 09:01 Alkaline Phosphatase 88 U/L (45-117) 07/03/21 09:01 Ammonia 24.0 umol/L (11-32) 07/02/21 22:08 NT-Pro-B Natriuret Pep 2894 pg/ml (0-900) H 07/02/21 22:05 Total Protein 5.9 gm/dl (6.4-8.2) L 07/03/21 09:01 Albumin 1.6 gm/dl (3.4-5.0) L 07/03/21 09:01 Globulin 4.8 gm/dl (2.5-4.0) H 07/02/21 20:55 Albumin/Globulin Ratio 0.3 (0.9-2) L 07/02/21 20:55 Lipase 99 U/L (73-393) 07/02/21 22:05 Urine Color Yellow 07/03/21 03:55 Urine Appearance Clear (Clear) 07/03/21 03:55 Urine pH 5.0 (4.5-7.5) 07/03/21 03:55 Ur Specific Lawrence 1.008 (1.000-1.030) 07/03/21 03:55 Urine Protein Negative (Negative) 07/03/21 03:55 Urine Glucose (UA) Negative (Negative) 07/03/21 03:55 Urine Ketones Negative (Negative) 07/03/21 03:55 Urine Blood Negative (Negative) 07/03/21 03:55 Urine Nitrite Negative (Negative) 07/03/21 03:55 Urine Bilirubin Negative (Negative) 07/03/21 03:55 Urine Urobilinogen Negative (Negative) 07/03/21 03:55 Ur Leukocyte Esterase Negative (Negative) 07/03/21 03:55 COVID-19 Eval Order Covid19 at [facility] 07/02/21 20:55 SARS-CoV-2 (PCR) NEGATIVE (Negative) 07/02/21 20:55 Hepatitis C Ab Screen Neg (Neg) 07/03/21 09:01 Impressions Abdomen/Pelvis CT 07/02/21 23:26 CT SCAN OF THE ABDOMEN AND PELVIS WITHOUT IV CONTRAST CLINICAL HISTORY: Jaundice. Generalized edema. COMPARISON STUDY: Fluoroscopic upper GI series dated 01/22/2015. TECHNIQUE: CT scan of the abdomen and pelvis is performed from the lung bases to the proximal femora. Images are reviewed in the axial, sagittal, and coronal planes. IV contrast was not administered for this examination. Note that the examination is significantly suboptimal without oral and IV contrast. There is also motion artifact, and streak artifact from the arms which could not be elevated above the abdomen. A dose lowering technique was utilized adhering to the principles of ALARA. CT DOSE: 2538.29 mGy.cm FINDINGS: Lung bases: The heart is mildly enlarged and without pericardial effusion. Pacemaker leads are in place. There are trace pleural effusions with dependent atelectasis. There is a small hiatal hernia. Esophageal varices are noted. Liver: The unenhanced liver is cirrhotic in morphology and heterogeneous in attenuation. There is mild hypertrophy of the left lobe and nodularity of the hepatic surface contour. There is no intrahepatic biliary ductal dilatation. Gallbladder: Surgically absent noting clips in the gallbladder fossa. Spleen: Top normal in size and homogeneous in attenuation. Pancreas: The unenhanced pancreas is atrophic and grossly unremarkable. Adrenal glands: Unremarkable. Kidneys: The unenhanced kidneys are atrophic and without hydronephrosis. There are no renal calculi identified. There is no evidence of contour deforming renal mass lesion. Abdominal vasculature: The abdominal aorta is normal in course and caliber noting advanced atherosclerotic calcification. Bowel: There is moderate to advanced colonic diverticulosis without clear CT evidence of acute diverticulitis. No bowel obstruction is identified wall thickening of the right colon is nonspecific and likely represents portal colopathy. Postoperative change is consistent with a history of gastric bypass surgery. The appendix is normal as visualized. Peritoneum: There is a moderate volume of abdominopelvic ascites. No intraperitoneal free air is seen. Postoperative change is noted in the ventral abdominal wall. Lymphadenopathy: There are numerous mildly enlarged upper abdominal lymph nodes. A gastrohepatic node measures 17 mm in short axis. Pelvic viscera: The bladder is normal as visualized. The uterus is surgically absent. No adnexal lesion is seen. Skeletal structures: The skeletal structures are osteopenic. No lytic or blastic lesions are seen. There are healed left-sided rib fractures. Mild to moderate lumbosacral spondylosis is observed. Soft tissues: There is anasarca of the body wall. Asymmetric soft tissue edema is seen within the left chest wall and in the left breast where there is overlying dermal thickening. IMPRESSION: 1. Significantly suboptimal examination without oral and IV contrast. The examination is also compromised by streak and motion. 2. Cirrhotic liver morphology. 3. A moderate volume of abdominopelvic ascites and esophageal varices indicate portal hypertension. 4. Wall thickening of the right colon is nonspecific and likely related to portal colopathy. Clinical correlation will be required. 5. Cardiomegaly and small pleural effusions. 6. Mildly enlarged upper abdominal lymph nodes are nonspecific and likely related to chronic liver disease. 7. There is anasarca of the body wall. 8. Asymmetric soft tissue edema is noted in the left chest wall/breast with overlying dermal thickening. Correlate clinically. 9. Additional findings as above. ACT 112: Negative or not required by law. Electronically signed by: Ganesh Crowley M.D. 07/03/2021 8:[address] 07/02/21 23:26 CT head/brain wo con CLINICAL HISTORY: 61 years-old Female with AMS. Acutely altered mental status TECHNIQUE: Multiple axial CT images of the head were obtained without contrast. A dose lowering technique was utilized adhering to the principles of ALARA. COMPARISON: None. FINDINGS: No acute intracranial hemorrhage, midline shift, intracranial mass, hydrocephalus, territorial ischemia or abnormal extra-axial collection. Age- related involutional changes. Mild white matter hypodensities suggest chronic microvascular ischemic disease. Ill-defined area of decreased attenuation measuring approximately 1.3 cm within the right frontal lobe centrum semiovale on image 25 series 2, likely on a basis of chronic microvascular ischemic disease. The calvarium is intact. Prior bilateral lens repair. The paranasal sinuses, mastoid air cells, and middle ear cavities are clear. IMPRESSION: No acute intracranial abnormality. ACT 112: Negative or not required by law. The above report was generated using voice recognition software. It may contain grammatical, syntax or spelling errors. Electronically signed by: Vicente Calvillo M.D. 07/03/2021 6:51 AM Chest X-Ray 07/03/21 02:48 XR chest 1V portable HISTORY: 61 years-old Female chf acute shortness of breath with congestive heart failure COMPARISON: CT abdomen and pelvis of same day TECHNIQUE: Portable AP view of the chest FINDINGS: Cardiac silhouette is enlarged. Left subclavian pacer. Mild pulmonary vascular congestion without overt pulmonary edema. Trace pleural effusions. No pneumothorax. Degenerative changes of the shoulders and spine with ORIF changes of the left proximal humerus. IMPRESSION: 1. Cardiomegaly and pulmonary vascular congestion without overt pulmonary edema. 2. Trace pleural effusions. ACT 112: Negative or not required by law. The above report was generated using voice recognition software. It may contain grammatical, syntax or spelling errors. Electronically signed by: Vicente Calvillo M.D. 07/03/2021 8:34 AM
--- NOTE | 2021-07-03 17:45 | Hospitalist Progress Note ---
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 Large Granular Lymphs # Lrg Granular Lymphs Hairy Cells Smudge Cells Toxic Granulation Toxic Vacuolation Dohle Bodies Kaz Rods Platelet Estimate Hypogranular Platelets Clumped Platelets Giant Platelets Platelet Satelliting RBC Morphology Polychromasia Hypochromasia Poikilocytosis Basophilic Stippling Anisocytosis Microcytosis Macrocytosis Spherocytes Pappenheimer Bodies Sickle Cells Target Cells Tear Drop Cells Ovalocytes Stomatocytes Mahmood-Lomas Bodies Echinocytes Acanthocytes (Spur) Rouleaux RBC Agglutinates Schistocytes RBC Morph Comment Sezary Cell PT 16.1 H (9.0-12.0) Seconds INR 1.6 H (0.9-1.1) Sodium (136-145) mmol/L Potassium (3.5-5.1) mmol/L Chloride (98-107) mmol/L Carbon Dioxide (21-32) mmol/L Anion Gap (3-11) BUN (7-18) mg/dl Creatinine (0.6-1.2) mg/dl Est Cr Clr Drug Dosing Est GFR ( Amer) ml/min Est GFR (Non-Af Amer) ml/min BUN/Creatinine Ratio (10-20) Glucose (70-99) mg/dl Calcium (8.5-10.1) mg/dl Total Bilirubin (0.2-1) mg/dl Direct Bilirubin (0-0.2) mg/dl AST (15-37) U/L ALT (12-78) U/L Alkaline Phosphatase (45-117) U/L Ammonia (11-32) umol/L NT-Pro-B Natriuret Pep (0-900) pg/ml Total Protein (6.4-8.2) gm/dl Albumin (3.4-5.0) gm/dl Globulin (2.5-4.0) gm/dl Albumin/Globulin Ratio (0.9-2) Lipase (73-393) U/L Urine Color Urine Appearance (Clear) Urine pH (4.5-7.5) Ur Specific [place] (1.000-1.030) Urine Protein (Negative) Urine Glucose (UA) (Negative) Urine Ketones (Negative) Urine Blood (Negative) Urine Nitrite (Negative) Urine Bilirubin (Negative) Urine Urobilinogen (Negative) Ur Leukocyte Esterase (Negative) COVID-19 Eval Order Covid19 at [facility] SARS-CoV-2 (PCR) NEGATIVE (Negative) Hepatitis C Ab Screen (Neg) 07/02/21 07/02/21 Range/Units 20:55 20:55 WBC 5.46 (4.8-10.8) K/uL RBC 2.90 L (4.2-5.4) M/uL Hgb 9.5 L (12.0-16.0) g/dL Hct 29.1 L (37-47) % MCV 100.3 H (80-100) fL MCH 32.8 (25-34) pg MCHC 32.6 (32-36) g/dL RDW Std Deviation 57.3 H (36.4-46.3) fL RDW Coeff of Shirley 16.6 H (11.5-14.5) % Plt Count 105 L (130-400) K/uL MPV 10.1 (7.4-10.4) fL Immature Gran % (Auto) 0.2 % Neut % (Auto) 79.5 % Lymph % (Auto) 10.4 % Surry % (Auto) 7.1 % Eos % (Auto) 2.6 % Baso % (Auto) 0.2 % Neut # (Auto) 4.34 (1.4-6.5) K/uL Lymph # (Auto) 0.57 L (1.2-3.4) K/uL Surry # (Auto) 0.39 (0.11-0.59) K/uL Eos # (Auto) 0.14 (0-0.5) K/uL Baso # (Auto) 0.01 (0-0.2) K/uL Immature Gran # (Auto) 0.01 (0.00-0.02) K/uL Absolute Nucleated RBC Nucleated RBC % (auto) Neutrophils % (Manual) Band Neutrophils % Lymphocytes % (Manual) Prolymphocyte % Reactive Lymphs % (Man) Monocytes % (Manual) Eosinophils % (Manual) Basophils % (Manual) Metamyelocytes % (Man) Myelocytes % (Man) Promyelocytes % (Man) Blast Cells % (Manual) Plasma Cell % (Manual) Other Cells % Nucleated RBC % Neutrophils # (Manual) Band Neutrophils # Total Absolute Neuts Lymphocytes # (Manual) Prolymphocyte # Reactive Lymphs # Total Abs Lymphocytes Monocytes # (Manual) Eosinophils # (Manual) Basophils # (Manual) Metamyelocytes # (Man) Myelocytes # (Manual) Promyelocytes # (Man) Blast Cells # (Man) Plasma Cell # (Manual) Other Cells # Nucleated RBCs # (Man) Hypersegmented Neuts Hyposegmented Neuts Hypogranular Neuts Large Granular Lymphs # Lrg Granular Lymphs Hairy Cells Smudge Cells Toxic Granulation Toxic Vacuolation Dohle Bodies Kaz Rods Platelet Estimate Hypogranular Platelets Clumped Platelets Giant Platelets Platelet Satelliting RBC Morphology Polychromasia Hypochromasia Poikilocytosis Basophilic Stippling Anisocytosis Microcytosis Macrocytosis Spherocytes Pappenheimer Bodies Sickle Cells Target Cells Tear Drop Cells Ovalocytes Stomatocytes Mahmood-Lomas Bodies Echinocytes Acanthocytes (Spur) Rouleaux RBC Agglutinates Schistocytes RBC Morph Comment Sezary Cell PT (9.0-12.0) Seconds INR (0.9-1.1) Sodium 134 L (136-145) mmol/L Potassium 3.6 (3.5-5.1) mmol/L Chloride 101 (98-107) mmol/L Carbon Dioxide 23 (21-32) mmol/L Anion Gap 11.0 (3-11) BUN 36 H (7-18) mg/dl Creatinine 1.97 H (0.6-1.2) mg/dl Est Cr Clr Drug Dosing Not Reportable Est GFR ( Amer) 30.6 ml/min Est GFR (Non-Af Amer) 26.4 ml/min BUN/Creatinine Ratio 18.3 (10-20) Glucose 136 H (70-99) mg/dl Calcium 8.3 L (8.5-10.1) mg/dl Total Bilirubin 4.3 H (0.2-1) mg/dl Direct Bilirubin (0-0.2) mg/dl AST 43 H (15-37) U/L ALT 16 (12-78) U/L Alkaline Phosphatase 93 (45-117) U/L Ammonia (11-32) umol/L NT-Pro-B Natriuret Pep (0-900) pg/ml Total Protein 6.4 (6.4-8.2) gm/dl Albumin 1.6 L (3.4-5.0) gm/dl Globulin 4.8 H (2.5-4.0) gm/dl Albumin/Globulin Ratio 0.3 L (0.9-2) Lipase (73-393) U/L Urine Color Urine Appearance (Clear) Urine pH (4.5-7.5) Ur Specific [place] (1.000-1.030) Urine Protein (Negative) Urine Glucose (UA) (Negative) Urine Ketones (Negative) Urine Blood (Negative) Urine Nitrite (Negative) Urine Bilirubin (Negative) Urine Urobilinogen (Negative) Ur Leukocyte Esterase (Negative) COVID-19 Eval Order SARS-CoV-2 (PCR) (Negative) Hepatitis C Ab Screen (Neg) Diagnostic Findings Abdomen/Pelvis CT 07/02/21 23:26 CT SCAN OF THE ABDOMEN AND PELVIS WITHOUT IV CONTRAST CLINICAL HISTORY: Jaundice. Generalized edema. COMPARISON STUDY: Fluoroscopic upper GI series dated 01/22/2015. TECHNIQUE: CT scan of the abdomen and pelvis is performed from the lung bases to the proximal femora. Images are reviewed in the axial, sagittal, and coronal planes. IV contrast was not administered for this examination. Note that the examination is significantly suboptimal without oral and IV contrast. There is also motion artifact, and streak artifact from the arms which could not be elevated above the abdomen. A dose lowering technique was utilized adhering to the principles of ALARA. CT DOSE: 2538.29 mGy.cm FINDINGS: Lung bases: The heart is mildly enlarged and without pericardial effusion. Pacemaker leads are in place. There are trace pleural effusions with dependent atelectasis. There is a small hiatal hernia. Esophageal varices are noted. Liver: The unenhanced liver is cirrhotic in morphology and heterogeneous in attenuation. There is mild hypertrophy of the left lobe and nodularity of the hepatic surface contour. There is no intrahepatic biliary ductal dilatation. Gallbladder: Surgically absent noting clips in the gallbladder fossa. Spleen: Top normal in size and homogeneous in attenuation. Pancreas: The unenhanced pancreas is atrophic and grossly unremarkable. Adrenal glands: Unremarkable. Kidneys: The unenhanced kidneys are atrophic and without hydronephrosis. There are no renal calculi identified. There is no evidence of contour deforming renal mass lesion. Abdominal vasculature: The abdominal aorta is normal in course and caliber noting advanced atherosclerotic calcification. Bowel: There is moderate to advanced colonic diverticulosis without clear CT evidence of acute diverticulitis. No bowel obstruction is identified wall thickening of the right colon is nonspecific and likely represents portal colopathy. Postoperative change is consistent with a history of gastric bypass surgery. The appendix is normal as visualized. Peritoneum: There is a moderate volume of abdominopelvic ascites. No intraperitoneal free air is seen. Postoperative change is noted in the ventral abdominal wall. Lymphadenopathy: There are numerous mildly enlarged upper abdominal lymph nodes. A gastrohepatic node measures 17 mm in short axis. Pelvic viscera: The bladder is normal as visualized. The uterus is surgically absent. No adnexal lesion is seen. Skeletal structures: The skeletal structures are osteopenic. No lytic or blastic lesions are seen. There are healed left-sided rib fractures. Mild to moderate lumbosacral spondylosis is observed. Soft tissues: There is anasarca of the body wall. Asymmetric soft tissue edema is seen within the left chest wall and in the left breast where there is overlyi ng dermal thickening. IMPRESSION: 1. Significantly suboptimal examination without oral and IV contrast. The examination is also compromised by streak and motion. 2. Cirrhotic liver morphology. 3. A moderate volume of abdominopelvic ascites and esophageal varices indicate portal hypertension. 4. Wall thickening of the right colon is nonspecific and likely related to portal colopathy. Clinical correlation will be required. 5. Cardiomegaly and small pleural effusions. 6. Mildly enlarged upper abdominal lymph nodes are nonspecific and likely related to chronic liver disease. 7. There is anasarca of the body wall. 8. Asymmetric soft tissue edema is noted in the left chest wall/breast with overlying dermal thickening. Correlate clinically. 9. Additional findings as above. ACT 112: Negative or not required by law. Electronically signed by: Ganesh Crowley M.D. 07/03/2021 8:[address] 07/02/21 23:26 CT head/brain wo con CLINICAL HISTORY: 61 years-old Female with AMS. Acutely altered mental status TECHNIQUE: Multiple axial CT images of the head were obtained without contrast. A dose lowering technique was utilized adhering to the principles of ALARA. COMPARISON: None. FINDINGS: No acute intracranial hemorrhage, midline shift, intracranial mass, hydrocephalus, territorial ischemia or abnormal extra-axial collection. Age- related involutional changes. Mild white matter hypodensities suggest chronic microvascular ischemic disease. Ill-defined area of decreased attenuation measuring approximately 1.3 cm within the right frontal lobe centrum semiovale on image 25 series 2, likely on a basis of chronic microvascular ischemic disease. The calvarium is intact. Prior bilateral lens repair. The paranasal sinuses, mastoid air cells, and middle ear cavities are clear. IMPRESSION: No acute intracranial abnormality. ACT 112: Negative or not required by law. The above report was generated using voice recognition software. It may contain grammatical, syntax or spelling errors. Electronically signed by: Vicente Calvillo M.D. 07/03/2021 6:51 AM Chest X-Ray 07/03/21 02:48 XR chest 1V portable HISTORY: 61 years-old Female chf acute shortness of breath with congestive heart failure COMPARISON: CT abdomen and pelvis of same day TECHNIQUE: Portable AP view of the chest FINDINGS: Cardiac silhouette is enlarged. Left subclavian pacer. Mild pulmonary vascular congestion without overt pulmonary edema. Trace pleural effusions. No pneumothorax. Degenerative changes of the shoulders and spine with ORIF changes of the left proximal humerus. IMPRESSION: 1. Cardiomegaly and pulmonary vascular congestion without overt pulmonary edema. 2. Trace pleural effusions. ACT 112: Negative or not required by law. The above report was generated using voice recognition software. It may contain grammatical, syntax or spelling errors. Electronically signed by: iVcente Calvillo M.D. 07/03/2021 8:34 AM PG Care Time/CCT Total # of Minutes Spent Total Time Spent with Patient: Total time spent is greater than 50% in coordination of care (as documented) at patient's floor/unit and/or counseling patient: Coding Level of Care Code None Diagnoses Depression F32.9 Anxiety disorder F41.9 CHF (congestive heart failure) I50.9 COPD (chronic obstructive pulmonary disease) J44.9 Liver cirrhosis K74.60 Pacemaker Z95.0 Hypertension I10 Acute kidney injury N17.9 Portal hypertension with esophageal varices K76.6; I85.00 Ascites due to alcoholic cirrhosis K70.31 Dependent edema R60.9 Anasarca R60.1 Hepatic encephalopathy K72.90 Hypoalbuminemia E88.09
--- NOTE | 2021-07-03 18:43 | Cardiology Consultation ---
Date of Consultation July 03, 2021 Assessment & Plan (1) Chronic diastolic congestive heart failure: Patient with chronic/refractory diastolic congestive heart failure complicated by her underlying hepatic cirrhosis with hypoalbuminemia (albumin 1.7). Her pulmonary exam is benign and she is oxygenating well on room air currently. Although she is asymptomatic at rest, she does appear markedly volume overloaded, would continue her usual regimen of furosemide 80 mg daily along with spironolactone 50 mg twice daily, would also add back her metolazone 2.5 mg twice weekly (or more often if tolerated). Would add potassium supplement in anticipation of kaliuresis from metolazone. Also, check magnesium and add supplement if appropriate. (2) Permanent atrial fibrillation: Rate well controlled on propranolol 20 mg twice daily. If any tachydysrhythmia, could increase this without concerns for bradycardia since she has a pacemaker. She is not an anticoagulation candidate due to her cirrhosis/varices with thrombocytopenia and some degree of auto-anticoagulation (INR 1.6). (3) Liver cirrhosis: (4) Pacemaker: Functioning appropriately. (5) Thrombocytopenia: Will follow along during her in-hospital stay. History of Present Illness Reason for Consultation: Cardiorenal syndrome? CHF with cirrhosis Requesting Physician: Cosme Metzger Attending Physician: Cosme Metzger History of Present Illness 61-year-old woman with alcoholic cirrhosis complicated by hepatic encephalopathy/ascites/thrombocytopenia, permanent atrial fibrillation (propranolol/not anticoagulated), status post ASD repair (occluder device), diastolic CHF, COPD, and dual-chamber pacemaker who was admitted earlier today with failure to thrive, cardiology consultation sought to help manage her congestive heart failure. Patient had difficulty conveying history, she simply feels weak and tired and denied any chest pain, dyspnea, orthopnea, or PND. She apparently does have chronic mild leg edema. She is followed by a bilingual patient support caseworker at [facility] for her cirrhosis. She is on a chronic diuretic regimen of spironolactone 50 mg twice daily, furosemide 80 mg twice daily, and metolazone 2.5 mg twice a week. Review of her cardiac history in a recent family medicine note states that she had normal coronaries at cath 2013 ASD with significant shunt, normal LV function. Echocardiogram showed preserved EF with no shunt ( Aside from fatigue, she had no somatic complaints at rest without supplemental oxygen at the time of my evaluation earlier today. Allergies Allergy/AdvReac Type Severity Reaction Status Date / Time levetiracetam Allergy Intermediate rash/hives Verified 07/02/21 21:28 Home Medications Medication Instructions Recorded Confirmed Type budesonide-formoterol HFA 160 2 puff INHALATION BID 04/22/18 07/02/21 History mcg-4.5 mcg/actuation aerosol inhaler (Symbicort) folic acid 1 mg tablet 1 mg PO DAILY 04/22/18 07/02/21 History furosemide 80 mg tablet (Lasix) 80 mg PO BID 04/22/18 07/02/21 History gabapentin 400 mg capsule 400 mg PO QID 04/22/18 07/02/21 History levothyroxine 50 mcg capsule 50 mcg PO QAM 04/22/18 07/02/21 History omeprazole magnesium 20 mg 20 mg PO DAILY 04/22/18 07/02/21 History tablet,delayed release (Prilosec OTC) propranolol 20 mg tablet 20 mg PO BID 04/22/18 07/02/21 History rifaximin 550 mg tablet (Xifaxan) 550 mg PO BID 04/22/18 07/02/21 History spironolactone 50 mg tablet 50 mg PO BID 04/22/18 07/02/21 History (Aldactone) vitamin B12 500 mcg-folic acid 400 1 tab PO DAILY 04/22/18 07/02/21 History mcg tablet Patient History Medical History (Updated 07/03/21 @ 18:30 by Laurent Sheehan MD) Anxiety disorder ASD (atrial septal defect) COPD (chronic obstructive pulmonary disease) Fibromyalgia Hepatic insufficiency Hypertension Liver cirrhosis Osteoarthritis Pacemaker IRREGULAR HEART BEAT 1999 Surgical History (Updated 07/03/21 @ 18:30 by Laurent Sheehan MD) Gastric bypass status for obesity H/O shoulder surgery LEFT SHOULDER FX REPAIR (HARDWARE PRESENT) History of cataract surgery RT Hx of cholecystectomy Social History Smoking Status: Never smoker Second Hand Exposure: No; Do You Dip or Chew Tobacco: No; Hx Alcohol Use: Yes Alcohol type: wine and hard liquor Hx Substance Use: No Preferred Language: Portuguese Communication Ability: Effective 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 Afebrile. Normotensive. Pulse 76 bpm and irregular. Skin: no ecchymoses or generalized lesions. HEENT: unremarkable. Neck: Jugular venous pulse elevated to the angle of the jaw at 90 degrees, no carotid bruits. Lungs: clear bilaterally Cardiac: Irregular rhythm, difficult exam with faint heart tones, no obvious murmur or gallop. Abdomen: benign. Extremities: 2+ pretibial edema, pulses intact. Neurologic: Unsophisticated affect, poor insight, grossly nonfocal. Results & Data ([facility]) Vital Signs (Past 12 Hours) Vital Signs Temp Pulse Resp BP Pulse Ox 07/03/21 15:37 97.9 F 75 16 118/79 96 07/03/21 07:47 97.2 F L 73 16 108/74 96 Laboratory Results Hemoglobin 9.6 with normal white count and platelet count of 70,000. INR elevated at 1.6. Sodium 134, otherwise normal electrolytes, BUN 35, creatinine 1.66. AST minimally elevated at 49, ALT normal at 16. Normal ammonia level. Albumin level 1.7. Diagnostic Findings Chest x-ray showed cardiomegaly and pulmonary vascular congestion without overt pulmonary edema, trace pleural effusions. ECG showed atrial fibrillation with low voltage QRS, occasional ventricular paced beats, possible old inferior and anterolateral infarcts. No prior tracing. Echocardiogram today showed EF 60 to 65%, flattened septum consistent with RV pressure/volume overload, mild LVH, moderately dilated right ventricle, pacemaker, possible bicuspid aortic valve, severe mitral regurgitation, moderate tricuspid regurgitation, normal right ventricular systolic pressure moderately dilated IVC. PG Care Time/CCT Total # of Minutes Spent Total Time Spent with Patient: Total time spent is greater than 50% in coordination of care (as documented) at patient's floor/unit and/or counseling patient: Coding Level of Care Code 77097 Inpt Consult Level 4 Diagnoses Pacemaker Z95.0 Chronic diastolic congestive heart failure I50.32 Liver cirrhosis K74.60 Thrombocytopenia D69.6 Permanent atrial fibrillation I48.21
[2021-07-03] MEDS: ALBUMIN 25% 100 mL 25 GM/100 ML VIAL IV SCH (22:16)
[2021-07-04] MEDS: ALBUMIN 25% 100 mL 25 GM/100 ML VIAL IV SCH ×4 (00:16→22:55)
[2021-07-04] MEDS: LEVOTHYROXINE SODIUM 75 MCG TABLET PO SCH (06:06)
[2021-07-04 08:03] LABS: Hematocrit (blood only) 22.6 % (37-47); Hemoglobin 7.5 g/dL (12.0-16.0); Mean Corpuscular Hemoglobin 32.9 pg (25-34); Mean Corpuscular Volume 99.1 fL (80-100); RDW Coefficient of Variation 16.6 % (11.5-14.5); RDW Standard Deviation 57.5 fL (36.4-46.3); Red Blood Count 2.28 M/uL (4.2-5.4)
[2021-07-04] MEDS: MIDODRINE HCL 10 MG TAB PO SCH ×3 (08:05→17:19)
[2021-07-04] MEDS: FLUTICASONE/VILANTEROL 100/25MCG 14 PUFFS/INHALER INH SCH (08:05)
[2021-07-04] MEDS: FUROSEMIDE 40 MG/4 ML VIAL IV SCH (08:06)
[2021-07-04] MEDS: PANTOprazole 40 MG TAB PO SCH ×2 (08:07→21:10)
[2021-07-04] MEDS: rifAXIMin 550 MG TABLET PO SCH ×2 (08:08→21:10)
[2021-07-04] MEDS: GABAPENTIN 300 MG CAP PO SCH ×2 (08:08→20:07)
[2021-07-04] MEDS: SPIRONOLACTONE 25 MG TAB PO SCH ×2 (08:09→20:10)
[2021-07-04 08:10] LABS: Albumin Level 2.9 gm/dl (3.4-5.0); Calcium 8.7 mg/dl (8.5-10.1); Creatinine Clr Calc Pharmacy 40.7 ml/min; Est GFR (African American) 37.1 ml/min; Potassium 3.3 mmol/L (3.5-5.1)
[2021-07-04 08:13] LABS: Albumin Globulin Ratio 0.8 (0.9-2); Bilirubin,Total 4.4 mg/dl (0.2-1); Globulin 3.5 gm/dl (2.5-4.0); Total Protein 6.4 gm/dl (6.4-8.2)
[2021-07-04 08:25] LABS: Anisocytosis Present; Basophils # (auto) 0.01 K/uL (0-0.2); Basophils % (auto) 0.3 %; Echinocytes 1+; Eosinophils # (auto) 0.14 K/uL (0-0.5); Eosinophils % (auto) 3.8 %; Lymphocytes # (auto) 0.52 K/uL (1.2-3.4); Lymphocytes % (auto) 14.1 %; Mean Corpuscular Hgb Conc 33.2 g/dL (32-36); Mean Platelet Volume 9.7 fL (7.4-10.4); Monocytes # (auto) 0.26 K/uL (0.11-0.59); Neutrophils # (auto) 2.77 K/uL (1.4-6.5); Neutrophils % (auto) 74.8 %; Platelet Count 53 K/uL (130-400)
[2021-07-04] MEDS ORDERED: POTASSIUM CHLORIDE CRTAB 20 MEQ TABCR PO STA (08:47)
--- NOTE | 2021-07-04 08:49 | Hospitalist Progress Note ---
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 discussed with the patient and written informed consent was obtained. Preliminary ultrasound of the abdomen was performed to determine a safe needle entry site. The left lower quadrant was prepped and draped in the usual sterile fashion. 1% Lidocaine was used for local anesthesia. A paracentesis needle-sheath was inserted into the peritoneal space using ultrasound guidance. The needle was removed and the sheath was connected to tubing and a vacuum suction device. A total of 3 liters of yellow ascites was aspirated. The sheath was removed and a sterile dressing applied. The patient tolerated the procedure well and there were no immediate complications. IMPRESSION: Ultrasound-guided therapeutic paracentesis with aspiration of 3 liters of ascites. ACT 112: Negative or not required by law. Electronically signed by: Tevin Kim M.D. 07/04/2021 10:17 AM Tibia/Fibula X-Ray 07/04/21 11:47 XR tibia fibula RT 2V HISTORY: 61 years-old Female trauma, eval fx acute pain of the right lower leg status post trauma COMPARISON: None TECHNIQUE: 2 views of the right tibia and fibula FINDINGS: There is diffuse soft tissue prominence of the lower leg. No opaque foreign body. Demineralized bones without acute fracture, dislocation or opaque foreign body. Osteoarthritis of the knee and ankle. IMPRESSION: Soft tissue swelling without acute fracture. ACT 112: Negative or not required by law. The above report was generated using voice recognition software. It may contain grammatical, syntax or spelling errors. Electronically signed by: Vicente Calvillo M.D. 07/04/2021 2:04 PM PG Care Time/CCT Total # of Minutes Spent Total Time Spent with Patient: Total time spent is greater than 50% in coordination of care (as documented) at patient's floor/unit and/or counseling patient: Coding Level of Care Code 17001 Subseq Hosp Care Lvl 3 Diagnoses Anasarca R60.1 CHF (congestive heart failure) I50.9 COPD (chronic obstructive pulmonary disease) J44.9 Liver cirrhosis K74.60 Pacemaker Z95.0 Hypertension I10 Acute kidney injury N17.9 Portal hypertension with esophageal varices K76.6; I85.00 Ascites due to alcoholic cirrhosis K70.31 Dependent edema R60.9 Hepatic encephalopathy K72.90 Hypoalbuminemia E88.09 Permanent atrial fibrillation I48.21 Chronic diastolic congestive heart failure I50.32
[2021-07-04] MEDS ORDERED: POTASSIUM CHLORIDE CRTAB 20 MEQ TABCR PO SCH (09:00)
[2021-07-04] MEDS ORDERED: SPIRONOLACTONE 25 MG TAB PO SCH (09:00)
--- NOTE | 2021-07-04 09:02 | Gastroenterology Progress Note ---
Date of Service July 04, 2021 Assessment & Plan (1) Ascites due to alcoholic cirrhosis: Plan: The patient has advanced chronic liver disease with portal hypertension complicated by progressive ascites and edema, encephalopathy, jaundice, renal insufficiency, possible acute kidney injury, hypoalbuminemia. Laboratory testing is pending today including AFP. She has diagnostic paracentesis planned for today. At this time recommend continuing rifaximin and midodrine. We will continue to follow the patient with the care team and assist as needed. Please refer to supervising physician addendum for further recommendations. Admission and Anticipated Discharge Date Admission Date: July 03, 2021 Supervising Physician Co-Signing Physician Notes I have seen and examined the patient. I agree with note above by SARTHAK uBcio except as noted below. HPI Pt s/p paracentesis today. Denies abd pain PE Abdomen pos bs, soft, no guarding nor rebound A/P ascites--I saw orders for chemistry and cell count on the fluid but so far no results in the system. ESLD---pt should follow through with [facility] to liver tx appt to see if she is a liver tx candidate on DC. Subjective The patient is awake alert and oriented sitting and position of comfort in bed this morning. She is eating a regular tray for breakfast. She denies any specific complaints this morning. She is a routine patient of [facility]. She lives in [place] and states that she did not want to continue following with gastro. She states she feels good overall. She has been evaluated by the [facility] transplant team for her liver just wants. She has not had any follow-up since then. Reports her appetite is good. Denies any pain this morning. Denies nausea or vomiting. Paracentesis is planned for today. Last bowel movement was yesterday and notes no melena or hematochezia. Review of Systems Review of Systems: All systems reviewed & are unremarkable except as noted in Subjective Physical Exam Constitutional: Afebrile, Jaundiced, she is alert but appears lethargic, with slurred speech, but oriented X 3 and cooperative, conversant, normal thought processes Eyes: scleral icterus Respiratory: normal respiratory effort, able to speak in complete sentences and symmetric chest movement Auscultation: lungs clear to auscultation bilaterally dyspneic at rest with tachypnea but she denies shortness of breath Cardiovascular: Normal heart tones and rhythm Gastrointestinal (Abdomen): Obese distended abdomen which is soft without guarding, without localized or generalized tenderness, Abdominal wall edema Musculoskeletal: Severe lower extremity edema, the right pretibial wound is covered and not visible Skin: Obvious Jaundice Neurologic: Alert, oriented and conversant with slurred speech, appropriate responses. Results & Data ([facility]) Vital Signs (Past 12 Hours) Vital Signs Temp Pulse Pulse Resp BP BP Pulse Ox 07/04/21 07:32 36.5 C 86 18 92/51 L 97 07/04/21 04:00 36.6 C 79 20 99/66 L 97 07/04/21 02:25 36.4 C L 87 18 112/78 94 07/04/21 02:10 36.5 C 84 18 114/80 94 07/04/21 00:30 36.3 C L 83 18 134/83 98 07/04/21 00:15 36.3 C L 78 18 119/78 98 07/03/21 22:44 36.4 C L 81 18 110/74 93 07/03/21 22:20 36.3 C L 81 20 104/65 95 07/03/21 21:33 71 Laboratory Results Laboratory Results - last 24 hr 07/03/21 07/03/21 07/03/21 09:01 09:01 09:01 WBC Cancelled RBC Cancelled Hgb Cancelled Hct Cancelled MCV Cancelled MCH Cancelled MCHC Cancelled RDW Std Deviation Cancelled RDW Coeff of Shirley Cancelled Plt Count Cancelled MPV Cancelled Immature Gran % (Auto) Cancelled Neut % (Auto) Cancelled Lymph % (Auto) Cancelled [place] % (Auto) Cancelled Eos % (Auto) Cancelled Baso % (Auto) Cancelled Neut # (Auto) Cancelled Lymph # (Auto) Cancelled [place] # (Auto) Cancelled Eos # (Auto) Cancelled Baso # (Auto) Cancelled Immature Gran # (Auto) Cancelled Absolute Nucleated RBC Cancelled Nucleated RBC % (auto) Cancelled Neutrophils % (Manual) Cancelled Band Neutrophils % Cancelled Lymphocytes % (Manual) Cancelled Prolymphocyte % Cancelled Reactive Lymphs % (Man) Cancelled Monocytes % (Manual) Cancelled Eosinophils % (Manual) Cancelled Basophils % (Manual) Cancelled Metamyelocytes % (Man) Cancelled Myelocytes % (Man) Cancelled Promyelocytes % (Man) Cancelled Blast Cells % (Manual) Cancelled Plasma Cell % (Manual) Cancelled Other Cells % Cancelled Nucleated RBC % Cancelled Neutrophils # (Manual) Cancelled Band Neutrophils # Cancelled Total Absolute Neuts Cancelled Lymphocytes # (Manual) Cancelled Prolymphocyte # Cancelled Reactive Lymphs # Cancelled Total Abs Lymphocytes Cancelled Monocytes # (Manual) Cancelled Eosinophils # (Manual) Cancelled Basophils # (Manual) Cancelled Metamyelocytes # (Man) Cancelled Myelocytes # (Manual) Cancelled Promyelocytes # (Man) Cancelled Blast Cells # (Man) Cancelled Plasma Cell # (Manual) Cancelled Other Cells # Cancelled Nucleated RBCs # (Man) Cancelled Hypersegmented Neuts Cancelled Hyposegmented Neuts Cancelled Hypogranular Neuts Cancelled Large Granular Lymphs Cancelled # Lrg Granular Lymphs Cancelled Hairy Cells Cancelled Smudge Cells Cancelled Toxic Granulation Cancelled Toxic Vacuolation Cancelled Dohle Bodies Cancelled Kaz Rods Cancelled Platelet Estimate Cancelled Hypogranular Platelets Cancelled Clumped Platelets Cancelled Giant Platelets Cancelled Platelet Satelliting Cancelled RBC Morphology Cancelled Polychromasia Cancelled Hypochromasia Cancelled Poikilocytosis Cancelled Basophilic Stippling Cancelled Anisocytosis Cancelled Microcytosis Cancelled Macrocytosis Cancelled Spherocytes Cancelled Pappenheimer Bodies Cancelled Sickle Cells Cancelled Target Cells Cancelled Tear Drop Cells Cancelled Ovalocytes Cancelled Stomatocytes Cancelled Mahmood-Rough And Ready Bodies Cancelled Echinocytes Cancelled Acanthocytes (Spur) Cancelled Rouleaux Cancelled RBC Agglutinates Cancelled Schistocytes Cancelled RBC Morph Comment Cancelled Sezary Cell Cancelled PT Cancelled INR Cancelled Sodium 134 L Potassium 3.6 Chloride 101 Carbon Dioxide 25 Anion Gap 8.0 BUN 35 H Creatinine 1.66 H D Est Cr Clr Drug Dosing 44.3 Est GFR ( Amer) 37.6 Est GFR (Non-Af Amer) 32.5 BUN/Creatinine Ratio 21.4 H Glucose 96 Fasting Glucose Calcium 8.5 Total Bilirubin 4.4 H Direct Bilirubin 2.0 H AST 49 H ALT 16 Alkaline Phosphatase 88 Total Protein 5.9 L Albumin 1.6 L Globulin Albumin/Globulin Ratio Tumor Marker AFP Ur Random Sodium Ur Random Potassium Hepatitis C Ab Screen 1107/03/21 07/03/21 09:01 09:01 09:48 WBC RBC Hgb Hct MCV MCH MCHC RDW Std Deviation RDW Coeff of Shirley Plt Count MPV Immature Gran % (Auto) Neut % (Auto) Lymph % (Auto) [place] % (Auto) Eos % (Auto) Baso % (Auto) Neut # (Auto) Lymph # (Auto) [place] # (Auto) Eos # (Auto) Baso # (Auto) Immature Gran # (Auto) Absolute Nucleated RBC Nucleated RBC % (auto) Neutrophils % (Manual) Band Neutrophils % Lymphocytes % (Manual) Prolymphocyte % Reactive Lymphs % (Man) Monocytes % (Manual) Eosinophils % (Manual) Basophils % (Manual) Metamyelocytes % (Man) Myelocytes % (Man) Promyelocytes % (Man) Blast Cells % (Manual) Plasma Cell % (Manual) Other Cells % Nucleated RBC % Neutrophils # (Manual) Band Neutrophils # Total Absolute Neuts Lymphocytes # (Manual) Prolymphocyte # Reactive Lymphs # Total Abs Lymphocytes Monocytes # (Manual) Eosinophils # (Manual) Basophils # (Manual) Metamyelocytes # (Man) Myelocytes # (Manual) Promyelocytes # (Man) Blast Cells # (Man) Plasma Cell # (Manual) Other Cells # Nucleated RBCs # (Man) Hypersegmented Neuts Hyposegmented Neuts Hypogranular Neuts Large Granular Lymphs # Lrg Granular Lymphs Hairy Cells Smudge Cells Toxic Granulation Toxic Vacuolation Dohle Bodies Kaz Rods Platelet Estimate Hypogranular Platelets Clumped Platelets Giant Platelets Platelet Satelliting RBC Morphology Polychromasia Hypochromasia Poikilocytosis Basophilic Stippling Anisocytosis Microcytosis Macrocytosis Spherocytes Pappenheimer Bodies Sickle Cells Target Cells Tear Drop Cells Ovalocytes Stomatocytes Mahmood-Rough And Ready Bodies Echinocytes Acanthocytes (Spur) Rouleaux RBC Agglutinates Schistocytes RBC Morph Comment Sezary Cell PT Cancelled INR Cancelled Sodium Potassium Chloride Carbon Dioxide Anion Gap BUN Creatinine Est Cr Clr Drug Dosing Est GFR ( Amer) Est GFR (Non-Af Amer) BUN/Creatinine Ratio Glucose Fasting Glucose Calcium Total Bilirubin Direct Bilirubin AST ALT Alkaline Phosphatase Total Protein Albumin 1.7 L Globulin Albumin/Globulin Ratio Tumor Marker AFP Ur Random Sodium Ur Random Potassium Hepatitis C Ab Screen Neg 07/03/21 07/03/21 07/03/21 09:48 14:11 14:11 WBC Cancelled 5.88 RBC Cancelled 2.96 L Hgb Cancelled 9.6 L Hct Cancelled 29.1 L MCV Cancelled 98.3 MCH Cancelled 32.4 MCHC Cancelled 33.0 RDW Std Deviation Cancelled 55.8 H RDW Coeff of Shirley Cancelled 16.4 H Plt Count Cancelled 70 L MPV Cancelled 10.5 H Immature Gran % (Auto) Cancelled 0.3 Neut % (Auto) Cancelled 81.6 Lymph % (Auto) Cancelled 8.7 [place] % (Auto) Cancelled 6.0 Eos % (Auto) Cancelled 2.9 Baso % (Auto) Cancelled 0.5 Neut # (Auto) Cancelled 4.80 Lymph # (Auto) Cancelled 0.51 L [place] # (Auto) Cancelled 0.35 Eos # (Auto) Cancelled 0.17 Baso # (Auto) Cancelled 0.03 Immature Gran # (Auto) Cancelled 0.02 Absolute Nucleated RBC Cancelled Nucleated RBC % (auto) Cancelled Neutrophils % (Manual) Cancelled Band Neutrophils % Cancelled Lymphocytes % (Manual) Cancelled Prolymphocyte % Cancelled Reactive Lymphs % (Man) Cancelled Monocytes % (Manual) Cancelled Eosinophils % (Manual) Cancelled Basophils % (Manual) Cancelled Metamyelocytes % (Man) Cancelled Myelocytes % (Man) Cancelled Promyelocytes % (Man) Cancelled Blast Cells % (Manual) Cancelled Plasma Cell % (Manual) Cancelled Other Cells % Cancelled Nucleated RBC % Cancelled Neutrophils # (Manual) Cancelled Band Neutrophils # Cancelled Total Absolute Neuts Cancelled Lymphocytes # (Manual) Cancelled Prolymphocyte # Cancelled Reactive Lymphs # Cancelled Total Abs Lymphocytes Cancelled Monocytes # (Manual) Cancelled Eosinophils # (Manual) Cancelled Basophils # (Manual) Cancelled Metamyelocytes # (Man) Cancelled Myelocytes # (Manual) Cancelled Promyelocytes # (Man) Cancelled Blast Cells # (Man) Cancelled Plasma Cell # (Manual) Cancelled Other Cells # Cancelled Nucleated RBCs # (Man) Cancelled Hypersegmented Neuts Cancelled Hyposegmented Neuts Cancelled Hypogranular Neuts Cancelled Large Granular Lymphs Cancelled # Lrg Granular Lymphs Cancelled Hairy Cells Cancelled Smudge Cells Cancelled Toxic Granulation Cancelled Toxic Vacuolation Cancelled Dohle Bodies Cancelled Kaz Rods Cancelled Platelet Estimate Cancelled Decreased L Hypogranular Platelets Cancelled Clumped Platelets Cancelled Giant Platelets Cancelled Platelet Satelliting Cancelled RBC Morphology Cancelled Polychromasia Cancelled Hypochromasia Cancelled Poikilocytosis Cancelled Basophilic Stippling Cancelled Anisocytosis Cancelled Microcytosis Cancelled Macrocytosis Cancelled Spherocytes Cancelled Pappenheimer Bodies Cancelled Sickle Cells Cancelled Target Cells Cancelled Tear Drop Cells Cancelled Ovalocytes Cancelled Stomatocytes Cancelled Mahmood-Rough And Ready Bodies Cancelled Echinocytes Cancelled 2+ Acanthocytes (Spur) Cancelled 1+ Rouleaux Cancelled RBC Agglutinates Cancelled Schistocytes Cancelled RBC Morph Comment Cancelled Sezary Cell Cancelled PT 16.0 H INR 1.6 H Sodium Potassium Chloride Carbon Dioxide Anion Gap BUN Creatinine Est Cr Clr Drug Dosing Est GFR ( Amer) Est GFR (Non-Af Amer) BUN/Creatinine Ratio Glucose Fasting Glucose Calcium Total Bilirubin Direct Bilirubin AST ALT Alkaline Phosphatase Total Protein Albumin Globulin Albumin/Globulin Ratio Tumor Marker AFP Ur Random Sodium Ur Random Potassium Hepatitis C Ab Screen 07/03/21 07/04/21 07/04/21 20:53 02:18 06:08 WBC RBC Hgb Hct MCV MCH MCHC RDW Std Deviation RDW Coeff of Shirley Plt Count MPV Immature Gran % (Auto) Neut % (Auto) Lymph % (Auto) [place] % (Auto) Eos % (Auto) Baso % (Auto) Neut # (Auto) Lymph # (Auto) [place] # (Auto) Eos # (Auto) Baso # (Auto) Immature Gran # (Auto) Absolute Nucleated RBC Nucleated RBC % (auto) Neutrophils % (Manual) Band Neutrophils % Lymphocytes % (Manual) Prolymphocyte % Reactive Lymphs % (Man) Monocytes % (Manual) Eosinophils % (Manual) Basophils % (Manual) Metamyelocytes % (Man) Myelocytes % (Man) Promyelocytes % (Man) Blast Cells % (Manual) Plasma Cell % (Manual) Other Cells % Nucleated RBC % Neutrophils # (Manual) Band Neutrophils # Total Absolute Neuts Lymphocytes # (Manual) Prolymphocyte # Reactive Lymphs # Total Abs Lymphocytes Monocytes # (Manual) Eosinophils # (Manual) Basophils # (Manual) Metamyelocytes # (Man) Myelocytes # (Manual) Promyelocytes # (Man) Blast Cells # (Man) Plasma Cell # (Manual) Other Cells # Nucleated RBCs # (Man) Hypersegmented Neuts Hyposegmented Neuts Hypogranular Neuts Large Granular Lymphs # Lrg Granular Lymphs Hairy Cells Smudge Cells Toxic Granulation Toxic Vacuolation Dohle Bodies Kaz Rods Platelet Estimate Hypogranular Platelets Clumped Platelets Giant Platelets Platelet Satelliting RBC Morphology Polychromasia Hypochromasia Poikilocytosis Basophilic Stippling Anisocytosis Microcytosis Macrocytosis Spherocytes Pappenheimer Bodies Sickle Cells Target Cells Tear Drop Cells Ovalocytes Stomatocytes Mahmood-Rough And Ready Bodies Echinocytes Acanthocytes (Spur) Rouleaux RBC Agglutinates Schistocytes RBC Morph Comment Sezary Cell PT INR Sodium Potassium Chloride Carbon Dioxide Anion Gap BUN Creatinine Est Cr Clr Drug Dosing Est GFR ( Amer) Est GFR (Non-Af Amer) BUN/Creatinine Ratio Glucose Fasting Glucose Calcium Total Bilirubin Direct Bilirubin AST ALT Alkaline Phosphatase Total Protein Albumin Globulin Albumin/Globulin Ratio Tumor Marker AFP Pending Ur Random Sodium 51 Ur Random Potassium 25.4 Hepatitis C Ab Screen 07/04/21 07/04/21 06:15 06:15 WBC 3.70 L RBC 2.28 L Hgb 7.5 L Hct 22.6 L MCV 99.1 MCH 32.9 MCHC 33.2 RDW Std Deviation 57.5 H RDW Coeff of Shirley 16.6 H Plt Count 53 L MPV 9.7 Immature Gran % (Auto) 0.0 Neut % (Auto) 74.8 Lymph % (Auto) 14.1 [place] % (Auto) 7.0 Eos % (Auto) 3.8 Baso % (Auto) 0.3 Neut # (Auto) 2.77 Lymph # (Auto) 0.52 L [place] # (Auto) 0.26 Eos # (Auto) 0.14 Baso # (Auto) 0.01 Immature Gran # (Auto) 0.00 Absolute Nucleated RBC Nucleated RBC % (auto) Neutrophils % (Manual) Band Neutrophils % Lymphocytes % (Manual) Prolymphocyte % Reactive Lymphs % (Man) Monocytes % (Manual) Eosinophils % (Manual) Basophils % (Manual) Metamyelocytes % (Man) Myelocytes % (Man) Promyelocytes % (Man) Blast Cells % (Manual) Plasma Cell % (Manual) Other Cells % Nucleated RBC % Neutrophils # (Manual) Band Neutrophils # Total Absolute Neuts Lymphocytes # (Manual) Prolymphocyte # Reactive Lymphs # Total Abs Lymphocytes Monocytes # (Manual) Eosinophils # (Manual) Basophils # (Manual) Metamyelocytes # (Man) Myelocytes # (Manual) Promyelocytes # (Man) Blast Cells # (Man) Plasma Cell # (Manual) Other Cells # Nucleated RBCs # (Man) Hypersegmented Neuts Hyposegmented Neuts Hypogranular Neuts Large Granular Lymphs # Lrg Granular Lymphs Hairy Cells Smudge Cells Toxic Granulation Toxic Vacuolation Dohle Bodies Kaz Rods Platelet Estimate Hypogranular Platelets Clumped Platelets Giant Platelets Platelet Satelliting RBC Morphology Polychromasia Hypochromasia Poikilocytosis Basophilic Stippling Anisocytosis Present Microcytosis Macrocytosis Spherocytes Pappenheimer Bodies Sickle Cells Target Cells Tear Drop Cells Ovalocytes Stomatocytes Mahmood-Rough And Ready Bodies Echinocytes 1+ Acanthocytes (Spur) Rouleaux RBC Agglutinates Schistocytes RBC Morph Comment Sezary Cell PT INR Sodium 136 Potassium 3.3 L Chloride 100 Carbon Dioxide 25 Anion Gap 11.0 BUN 37 H Creatinine 1.68 H Est Cr Clr Drug Dosing 40.7 Est GFR ( Amer) 37.1 Est GFR (Non-Af Amer) 32.0 BUN/Creatinine Ratio Glucose Fasting Glucose 77 Calcium 8.7 Total Bilirubin 4.4 H Direct Bilirubin AST 30 ALT 13 Alkaline Phosphatase 71 Total Protein 6.4 Albumin 2.9 L Globulin 3.5 Albumin/Globulin Ratio 0.8 L Tumor Marker AFP Ur Random Sodium Ur Random Potassium Hepatitis C Ab Screen
--- NOTE | 2021-07-04 10:18 | Ultrasound Report ---
ULTRASOUND-GUIDED THERAPEUTIC PARACENTESIS: HISTORY: Ascites. Procedure: The procedure and its risks, benefits and alternatives were discussed with the patient and written informed consent was obtained. Preliminary ultrasound of the abdomen was performed to determ ine a safe needle entry site. The left lower quadrant was prepped and draped in the usual sterile fashion. 1% Lidocaine was used fo r local anesthesia. A paracentesis needle-sheath was inserted into the peritoneal space using ultraso und guidance. The needle was removed and the sheath was connected to tubing and a vacuum suction elise ce. A total of 3 liters of yellow ascites was aspirated. The sheath was removed and a sterile dressin g applied. The patient tolerated the procedure well and there were no immediate complications. IMPRESSION: Ultrasound-guided therapeutic paracentesis with aspiration of 3 liters of ascites. ACT 112: Negative or not required by law. Electronically signed by: Tevin Kim M.D. 07/04/2021 10:17 AM
[2021-07-04] MEDS: FUROSEMIDE 80 MG TAB PO SCH ×2 (11:38→16:45)
--- NOTE | 2021-07-04 12:49 | Nephrology Consultation ---
Date of Consultation July 04, 2021 Assessment & Plan (1) Chronic diastolic congestive heart failure: (2) Liver cirrhosis: (3) Portal hypertension with esophageal varices: (4) Ascites due to alcoholic cirrhosis: (5) Dependent edema: (6) Acute kidney injury: (7) Hypoalbuminemia: Kidney function appears to have approached baseline per records from [facility]. Urine sodium note consistent with acute HRS. Unfortunately, the condition is guarded. Thankfully, Ingris is non-oliguric. Volume status is improving. IV albumin should be provided with paracentesis. BP is acceptable. Electrolytes controlled. Mild, hypervolemic hyponatremia associated with kidney dysfunction. Dietary fluid restriction encouraged. I would avoid too much use of thiazides and notable combination diuretic therapy as able due to risk for worsening electrolyte abnormalities. Will try to maximize spironolactone and use of loop diuretics as able. Monitor response to furosemide. Unfortunately, MELD ~26 and overall prognosis is poor -- especially if liver transplant is not an option. I will follow up this afternoon once the patient returns for her procedure. In the interim, no changes in medications were made. Medications are appropriate for kidney dysfunction at this time. History of Present Illness Reason for Consultation: CHARLI Requesting Physician: Cosme Metzger Attending Physician: Cosme Metzger History of Present Illness Ingris Reid is a 61-year-old female with alcoholic cirrhosis, CHF, coronary artery disease, COPD, history of Shay-en-Y bypass, and pacemaker. She has evidence of baseline CKD with a serum creatinine of 1.4-1.6 mg/dL in April at [facility]. Complications of cirrhosis include a ascites, encephalopathy, and esophageal varices. She suffered an episode of CHARLI in April as an outpatient. Ingris presented to [facility] yesterday with 2-3 weeks of progressive weakness, generalized malaise, and notable fluid retention. Evaluation notable for significant anasarca. Furosemide 40 mg IV was provided in the ER and 80 mg BID ordered for today. The patient was being taken for paracentesis when I went to see her this morning. Her hemoglobin was 9.6 on admission and 7.7 this AM. Serum albumin is 1.7. Creatinine 1.97 mg/dL on admission had improved to 1.66 mg/dL. UA is bland. Net negative fluid balance approximately 1 L per I/O's. Cardiology and GI consultations reviewed. Cardiology is planning to restart intermittent metolazone. Urine sodium 57. Ingris remains on spironolactone 50 mg BID. She is on midodrine. CT scan of the abdomen and pelvis and CXR were reviewed this AM. CRX demonstrating cardiomegaly and PVC. CT abdomen and pelvis with moderate ascites, anasarca, esophageal varices, and a cirrhotic liver. Allergies Allergy/AdvReac Type Severity Reaction Status Date / Time levetiracetam Allergy Intermediate rash/hives Verified 07/02/21 21:28 Home Medications Medication Instructions Recorded Confirmed Type budesonide-formoterol HFA 160 2 puff INHALATION BID 04/22/18 07/02/21 History mcg-4.5 mcg/actuation aerosol inhaler (Symbicort) folic acid 1 mg tablet 1 mg PO DAILY 04/22/18 07/02/21 History furosemide 80 mg tablet (Lasix) 80 mg PO BID 04/22/18 07/02/21 History gabapentin 400 mg capsule 400 mg PO QID 04/22/18 07/02/21 History levothyroxine 50 mcg capsule 50 mcg PO QAM 04/22/18 07/02/21 History omeprazole magnesium 20 mg 20 mg PO DAILY 04/22/18 07/02/21 History tablet,delayed release (Prilosec OTC) propranolol 20 mg tablet 20 mg PO BID 04/22/18 07/02/21 History rifaximin 550 mg tablet (Xifaxan) 550 mg PO BID 04/22/18 07/02/21 History spironolactone 50 mg tablet 50 mg PO BID 04/22/18 07/02/21 History (Aldactone) vitamin B12 500 mcg-folic acid 400 1 tab PO DAILY 04/22/18 07/02/21 History mcg tablet Patient History Medical History Anxiety disorder ASD (atrial septal defect) COPD (chronic obstructive pulmonary disease) Fibromyalgia Hepatic insufficiency Hypertension Liver cirrhosis Osteoarthritis Pacemaker IRREGULAR HEART BEAT 1999 Surgical History Gastric bypass status for obesity H/O shoulder surgery LEFT SHOULDER FX REPAIR (HARDWARE PRESENT) History of cataract surgery RT Hx of cholecystectomy Social History (Reviewed 11/18/21 @ 12:46 by SAM Yost Smoking Status: Never smoker Second Hand Exposure: No; Do You Dip or Chew Tobacco: No; Hx Alcohol Use: Yes Alcohol type: wine and hard liquor Hx Substance Use: No Preferred Language: French Communication Ability: Effective 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 Kitchen Required: No Beliefs That Will Affect Care: None marital status: Unknown Current Living Situation: Alone Other Information That Helps Us Care for You: No Feels Safe at Home: Yes Safety Concerns: Feels Safe At This Time Assistive Devices: Walker Review of Systems Review of Systems: All systems reviewed & are unremarkable except as noted in HPI & below Physical Exam Constitutional: well developed and + frail appearing; no acute distress Eyes: + scleral abnormality (icteric); sclerae not anicteric and no corneal abnormality ENMT: Mouth: no oral mucosal abnormality and oral mucous membranes not dry Neck: normal visual inspection and trachea midline Respiratory: normal respiratory effort Auscultation: lungs clear to auscultation bilaterally Cardiovascular: Rate/Rhythm: regular rate Heart Sounds: normal S1 and normal S2 Vessels: + JVD Extremities: + edema Gastrointestinal (Abdomen): Inspection/Auscultation: + abdomen distended and + abdominal edema Musculoskeletal: Extremities: no cyanosis and no clubbing Skin: + jaundice; + abnormal turgor Neurologic: Motor/Sensory: no tremor and no asterixis Psychiatric: Orientation: alert and oriented x 3 Results & Data ([facility]) Vital Signs (Past 12 Hours) Vital Signs Temp Pulse Pulse Resp BP BP Pulse Ox 07/04/21 11:31 36.4 C L 71 17 102/69 96 07/04/21 07:32 36.5 C 86 18 92/51 L 97 07/04/21 06:16 85 07/04/21 04:00 36.6 C 79 20 99/66 L 97 07/04/21 02:25 36.4 C L 87 18 112/78 94 07/04/21 02:10 36.5 C 84 18 114/80 94 Laboratory Results Laboratory Results - last 24 hr 07/03/21 07/03/21 07/03/21 09:01 14:11 14:11 WBC 5.88 RBC 2.96 L Hgb 9.6 L Hct 29.1 L MCV 98.3 MCH 32.4 MCHC 33.0 RDW Std Deviation 55.8 H RDW Coeff of Shirley 16.4 H Plt Count 70 L MPV 10.5 H Immature Gran % (Auto) 0.3 Neut % (Auto) 81.6 Lymph % (Auto) 8.7 [place] % (Auto) 6.0 Eos % (Auto) 2.9 Baso % (Auto) 0.5 Neut # (Auto) 4.80 Lymph # (Auto) 0.51 L [place] # (Auto) 0.35 Eos # (Auto) 0.17 Baso # (Auto) 0.03 Immature Gran # (Auto) 0.02 Platelet Estimate Decreased L Anisocytosis Echinocytes 2+ Acanthocytes (Spur) 1+ PT 16.0 H INR 1.6 H Sodium Potassium Chloride Carbon Dioxide Anion Gap BUN Creatinine Est Cr Clr Drug Dosing Est GFR ( Amer) Est GFR (Non-Af Amer) Fasting Glucose Calcium Magnesium Total Bilirubin AST ALT Alkaline Phosphatase Total Protein Albumin 1.7 L Globulin Albumin/Globulin Ratio Tumor Marker AFP Vitamin B12 Ur Random Sodium Ur Random Potassium 07/03/21 07/04/21 07/04/21 20:53 02:18 06:08 WBC RBC Hgb Hct MCV MCH MCHC RDW Std Deviation RDW Coeff of Shirley Plt Count MPV Immature Gran % (Auto) Neut % (Auto) Lymph % (Auto) [place] % (Auto) Eos % (Auto) Baso % (Auto) Neut # (Auto) Lymph # (Auto) [place] # (Auto) Eos # (Auto) Baso # (Auto) Immature Gran # (Auto) Platelet Estimate Anisocytosis Echinocytes Acanthocytes (Spur) PT INR Sodium Potassium Chloride Carbon Dioxide Anion Gap BUN Creatinine Est Cr Clr Drug Dosing Est GFR ( Amer) Est GFR (Non-Af Amer) Fasting Glucose Calcium Magnesium Total Bilirubin AST ALT Alkaline Phosphatase Total Protein Albumin Globulin Albumin/Globulin Ratio Tumor Marker AFP Pending Vitamin B12 Ur Random Sodium 51 Ur Random Potassium 25.4 07/04/21 07/04/21 07/04/21 06:15 06:15 10:48 WBC 3.70 L RBC 2.28 L Hgb 7.5 L Hct 22.6 L MCV 99.1 MCH 32.9 MCHC 33.2 RDW Std Deviation 57.5 H RDW Coeff of Shirley 16.6 H Plt Count 53 L MPV 9.7 Immature Gran % (Auto) 0.0 Neut % (Auto) 74.8 Lymph % (Auto) 14.1 [place] % (Auto) 7.0 Eos % (Auto) 3.8 Baso % (Auto) 0.3 Neut # (Auto) 2.77 Lymph # (Auto) 0.52 L [place] # (Auto) 0.26 Eos # (Auto) 0.14 Baso # (Auto) 0.01 Immature Gran # (Auto) 0.00 Platelet Estimate Anisocytosis Present Echinocytes 1+ Acanthocytes (Spur) PT INR Sodium 136 Potassium 3.3 L Chloride 100 Carbon Dioxide 25 Anion Gap 11.0 BUN 37 H Creatinine 1.68 H Est Cr Clr Drug Dosing 40.7 Est GFR ( Amer) 37.1 Est GFR (Non-Af Amer) 32.0 Fasting Glucose 77 Calcium 8.7 Magnesium Total Bilirubin 4.4 H AST 30 ALT 13 Alkaline Phosphatase 71 Total Protein 6.4 Albumin 2.9 L Globulin 3.5 Albumin/Globulin Ratio 0.8 L Tumor Marker AFP Vitamin B12 821 Ur Random Sodium Ur Random Potassium 07/04/21 10:48 WBC RBC Hgb Hct MCV MCH MCHC RDW Std Deviation RDW Coeff of Shirley Plt Count MPV Immature Gran % (Auto) Neut % (Auto) Lymph % (Auto) [place] % (Auto) Eos % (Auto) Baso % (Auto) Neut # (Auto) Lymph # (Auto) [place] # (Auto) Eos # (Auto) Baso # (Auto) Immature Gran # (Auto) Platelet Estimate Anisocytosis Echinocytes Acanthocytes (Spur) PT INR Sodium Potassium Chloride Carbon Dioxide Anion Gap BUN Creatinine Est Cr Clr Drug Dosing Est GFR ( Amer) Est GFR (Non-Af Amer) Fasting Glucose Calcium Magnesium 1.9 Total Bilirubin AST ALT Alkaline Phosphatase Total Protein Albumin Globulin Albumin/Globulin Ratio Tumor Marker AFP Vitamin B12 Ur Random Sodium Ur Random Potassium PG Care Time/CCT Total # of Minutes Spent Total Time Spent with Patient: Total time spent is greater than 50% in coordination of care (as documented) at patient's floor/unit and/or counseling patient: Coding Level of Care Code 08701 Inpt Consult Level 4 Diagnoses Chronic diastolic congestive heart failure I50.32 Liver cirrhosis K74.60 Portal hypertension with esophageal varices K76.6; I85.00 Ascites due to alcoholic cirrhosis K70.31 Dependent edema R60.9 Acute kidney injury N17.9 Hypoalbuminemia E88.09
--- NOTE | 2021-07-04 12:49 | Cardiology Progress Note ---
Date of Service July 04, 2021 Assessment & Plan (1) Chronic diastolic congestive heart failure: (2) Permanent atrial fibrillation: (3) Pacemaker: (4) Liver cirrhosis: (5) Thrombocytopenia: Plan: She still appears markedly hypervolemic but is comfortable. Hemodynamics reasonable status post significant volume paracentesis. As long as BP allows, continue her diuretic regimen of furosemide 80 mg daily/spironolactone 50 mg twice daily/metolazone 2.5 mg twice weekly. Once potassium corrected, could increase frequency of metolazone. Atrial fibrillation rate well controlled on propranolol alone. Multiple contraindications to anticoagulation. No new recommendations at this time. Will continue to follow. Admission and Anticipated Discharge Date Admission Date: July 03, 2021 Subjective Uneventful night. No complaints. Diagnostic paracentesis removed 3 L of ascites today. I/O -975 (prior to paracentesis). Weight unreliable (? 13 pound weight gain) Telemetry showed atrial fibrillation with controlled ventricular rate in the 80 bpm range. Physical Exam Physical Exam: No distress. Normotensive. Pulse 72 bpm and irregular. Skin: no ecchymoses or generalized lesions. HEENT: unremarkable. Neck: Jugular venous pulse elevated to the angle of the jaw at 90 degrees, no carotid bruits. Lungs: clear bilaterally Cardiac: Irregular rhythm, difficult exam with faint heart tones, no obvious murmur or gallop. Abdomen: benign. Extremities: 2+ pretibial edema, pulses intact. Neurologic: Unsophisticated affect, poor insight, grossly nonfocal. Results & Data ([facility]) Vital Signs (Past 12 Hours) Vital Signs Temp Pulse Pulse Resp BP BP Pulse Ox 07/04/21 11:31 97.5 F L 71 17 102/69 96 07/04/21 07:32 97.7 F 86 18 92/51 L 97 07/04/21 06:16 85 07/04/21 04:00 97.9 F 79 20 99/66 L 97 07/04/21 02:25 97.5 F L 87 18 112/78 94 07/04/21 02:10 97.7 F 84 18 114/80 94 Laboratory Results Potassium 3.3, otherwise normal electrolytes. Magnesium 1.9. BUN 37/creatinine 1.68 (stable). PG Care Time/CCT Total # of Minutes Spent Total Time Spent with Patient: Total time spent is greater than 50% in coordination of care (as documented) at patient's floor/unit and/or counseling patient: Coding Level of Care Code 77665 Subseq Hosp Care Lvl 3 Diagnoses Chronic diastolic congestive heart failure I50.32 Permanent atrial fibrillation I48.21 Pacemaker Z95.0 Liver cirrhosis K74.60 Thrombocytopenia D69.6
[2021-07-04] MEDS: LACTULOSE SYRUP 20 GM/30 ML UDC PO SCH ×3 (12:53→21:18)
--- NOTE | 2021-07-04 14:05 | XRay Report ---
XR tibia fibula RT 2V HISTORY: 61 years-old Female trauma, eval fx acute pain of the right lower leg status post trauma COMPARISON: None TECHNIQUE: 2 views of the right tibia and fibula FINDINGS: There is diffuse soft tissue prominence of the lower leg. No opaque foreign body. Demineralized bones without acute fracture, dislocation or opaque foreign body. Osteoarthritis of the knee and ankle. IMPRESSION: Soft tissue swelling without acute fracture. ACT 112: Negative or not required by law. The above report was generated using voice recognition software. It may contain grammatical, syntax o r spelling errors. Electronically signed by: Vicente Calvillo M.D. 07/04/2021 2:04 PM
[2021-07-04] MEDS: PROPRANOLOL HCL 20 MG TAB PO SCH (20:10)
[2021-07-04] MEDS: POTASSIUM CHLORIDE 10 MEQ TABCR PO SCH ×2 (21:11→21:17)
[2021-07-05] MEDS: ALBUMIN 25% 100 mL 25 GM/100 ML VIAL IV SCH ×3 (00:57→04:56)
[2021-07-05] MEDS: LEVOTHYROXINE SODIUM 75 MCG TABLET PO SCH (06:07)
[2021-07-05 06:15] LABS: Hematocrit (blood only) 21.9 % (37-47); Hemoglobin 7.3 g/dL (12.0-16.0); Mean Corpuscular Hemoglobin 32.9 pg (25-34); Mean Corpuscular Hgb Conc 33.3 g/dL (32-36); Mean Corpuscular Volume 98.6 fL (80-100); Nucleated RBC # (auto) 0.05 K/uL (0-0); Nucleated RBC % (auto) 1.1 %; RDW Coefficient of Variation 16.4 % (11.5-14.5); RDW Standard Deviation 55.4 fL (36.4-46.3); Red Blood Count 2.22 M/uL (4.2-5.4); White Blood Count 4.35 K/uL (4.8-10.8)
[2021-07-05 06:42] LABS: Albumin Level 3.1 gm/dl (3.4-5.0); BUN Creatinine Ratio 23.9 (10-20); Creatinine Clr Calc Pharmacy 44.4 ml/min; Est GFR (African American) 39.3 ml/min; Est GFR (Non-African American) 33.9 ml/min; Potassium 3.4 mmol/L (3.5-5.1)
[2021-07-05 06:44] LABS: Albumin Globulin Ratio 1.2 (0.9-2); Bilirubin,Total 4.5 mg/dl (0.2-1); Globulin 2.5 gm/dl (2.5-4.0); Total Protein 5.6 gm/dl (6.4-8.2)
[2021-07-05 06:47] LABS: Mean Platelet Volume 9.7 fL (7.4-10.4); Platelet Count 41 K/uL (130-400)
[2021-07-05 06:57] LABS: Acanthocytes 2+; Basophils # (auto) 0.01 K/uL (0-0.2); Basophils % (auto) 0.2 %; Eosinophils # (auto) 0.17 K/uL (0-0.5); Eosinophils % (auto) 3.9 %; Immature Granulocytes # (auto) 0.01 K/uL (0.00-0.02); Immature Granulocytes % (auto) 0.2 %; Lymphocytes # (auto) 0.44 K/uL (1.2-3.4); Lymphocytes % (auto) 10.1 %; Monocytes # (auto) 0.19 K/uL (0.11-0.59); Monocytes % (auto) 4.4 %; Neutrophils # (auto) 3.53 K/uL (1.4-6.5); Neutrophils % (auto) 81.2 %
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
[2021-07-05] MEDS ORDERED: POTASSIUM CHLORIDE CRTAB 20 MEQ TABCR PO STA (07:44)
--- NOTE | 2021-07-05 08:00 | Gastroenterology Progress Note ---
Date of Service July 05, 2021 Assessment & Plan (1) Liver cirrhosis: Plan: The patient reports she is doing well this morning. No noted complaints. Paracentesis performed yesterday for 3 L of ascitic fluid. Denies abdominal pain this morning. She does have end-stage liver disease and should follow through with [facility] for liver transplant appointment to assess if she has a liver transplant candidate. Continue diuretics with nephrology input appreciated. Co ntinue lactulose and rifaximin. Transfuse as needed. We will continue to follow along. Would recommend stool for occult blood. Patient also reporting no bowel movement since admission and no recent nursing stool documentation. Please refer to supervising physician addendum for further recommendations. Admission and Anticipated Discharge Date Admission Date: July 04, 2021 Supervising Physician Co-Signing Physician Notes I have seen and examined the patient. I agree with note above by SARTHAK Bucio except as noted below. HPI Pt denies abd pain. States she had one bm on admit and none since. Tolerating po PE Abdomen pos bs, soft, no guarding nor rebound A/P ascites--s/p paracentesis--apparently fluid was discarded by radiology so no studies were done. Clinically patient does not seem to have SBP but if fever, abd pain, worsening CR, worsening confusion starts then would repeat paracentesis with fluid analysis for SBP anemia--no apparent stool so does not seem to be from GI bleeding ESLD--outpt f/u with [facility] liver transplant team --she was seen there before. DR Per Berman is assuming GI care today at 1800 and over the weekend. Subjective Patient awake alert and oriented this morning. Lying in bed and position of comfort. She is eating her breakfast tray without any difficulty. She denies any abdominal pain, nausea, vomiting. Reports she has not had a bowel movement this admission and is not passing flatus. Review of Systems Review of Systems: All systems reviewed & are unremarkable except as noted in Subjective Physical Exam Constitutional: + ill appearing (chronically) Eyes: + anicteric sclerae Respiratory: normal respiratory effort, able to speak in complete sentences and symmetric chest movement Auscultation: lungs clear to auscultation bilaterally Cardiovascular: Rate/Rhythm: regular rate and regular rhythm Gastrointestinal (Abdomen): Percussion/Palpation: abdomen soft, + ascites and + tympanic to percussion; abdomen nontender, no guarding and abdomen not rigid Obese distended abdomen, Abdominal wall edema Musculoskeletal: Severe lower extremity edema, the right pretibial wound is covered and not visible Skin: + jaundice Psychiatric: Orientation: alert and oriented x 3 Results & Data ([facility]) Vital Signs (Past 12 Hours) Vital Signs Temp Pulse Pulse Resp BP Pulse Ox 07/05/21 07:43 77 07/05/21 07:24 36.3 C L 85 17 91/58 L 96 07/05/21 03:33 36.3 C L 69 18 107/70 94 07/05/21 01:12 36.4 C L 69 18 107/69 95 07/05/21 00:57 36.5 C 70 18 110/72 95 07/04/21 22:20 36.4 C L 75 18 109/69 95 07/04/21 22:19 69 07/04/21 22:05 36.4 C L 70 18 109/68 94 07/04/21 22:00 36.4 C L 65 18 92/60 L 97 Laboratory Results Laboratory Results - last 24 hr 07/04/21 07/04/21 07/04/21 06:15 06:15 10:48 WBC 3.70 L RBC 2.28 L Hgb 7.5 L Hct 22.6 L MCV 99.1 MCH 32.9 MCHC 33.2 RDW Std Deviation 57.5 H RDW Coeff of Shirley 16.6 H Plt Count 53 L MPV 9.7 Immature Gran % (Auto) 0.0 Neut % (Auto) 74.8 Lymph % (Auto) 14.1 [place] % (Auto) 7.0 Eos % (Auto) 3.8 Baso % (Auto) 0.3 Neut # (Auto) 2.77 Lymph # (Auto) 0.52 L [place] # (Auto) 0.26 Eos # (Auto) 0.14 Baso # (Auto) 0.01 Immature Gran # (Auto) 0.00 Absolute Nucleated RBC Nucleated RBC % (auto) Anisocytosis Present Echinocytes 1+ Acanthocytes (Spur) Sodium 136 Potassium 3.3 L Chloride 100 Carbon Dioxide 25 Anion Gap 11.0 BUN 37 H Creatinine 1.68 H Est Cr Clr Drug Dosing 40.7 Est GFR ( Amer) 37.1 Est GFR (Non-Af Amer) 32.0 BUN/Creatinine Ratio Glucose Fasting Glucose 77 Calcium 8.7 Magnesium Total Bilirubin 4.4 H AST 30 ALT 13 Alkaline Phosphatase 71 Ammonia Total Protein 6.4 Albumin 2.9 L Globulin 3.5 Albumin/Globulin Ratio 0.8 L Vitamin B12 821 07/04/21 07/05/21 07/05/21 10:48 05:56 05:56 WBC 4.35 L RBC 2.22 L Hgb 7.3 L Hct 21.9 L MCV 98.6 MCH 32.9 MCHC 33.3 RDW Std Deviation 55.4 H RDW Coeff of Shirley 16.4 H Plt Count 41 L MPV 9.7 Immature Gran % (Auto) 0.2 Neut % (Auto) 81.2 Lymph % (Auto) 10.1 [place] % (Auto) 4.4 Eos % (Auto) 3.9 Baso % (Auto) 0.2 Neut # (Auto) 3.53 Lymph # (Auto) 0.44 L [place] # (Auto) 0.19 Eos # (Auto) 0.17 Baso # (Auto) 0.01 Immature Gran # (Auto) 0.01 Absolute Nucleated RBC 0.05 H Nucleated RBC % (auto) 1.1 Anisocytosis Echinocytes Acanthocytes (Spur) 2+ Sodium Potassium Chloride Carbon Dioxide Anion Gap BUN Creatinine Est Cr Clr Drug Dosing Est GFR ( Amer) Est GFR (Non-Af Amer) BUN/Creatinine Ratio Glucose Fasting Glucose Calcium Magnesium 1.9 Total Bilirubin AST ALT Alkaline Phosphatase Ammonia 39.0 H Total Protein Albumin Globulin Albumin/Globulin Ratio Vitamin B12 07/05/21 05:56 WBC RBC Hgb Hct MCV MCH MCHC RDW Std Deviation RDW Coeff of Shirley Plt Count MPV Immature Gran % (Auto) Neut % (Auto) Lymph % (Auto) [place] % (Auto) Eos % (Auto) Baso % (Auto) Neut # (Auto) Lymph # (Auto) [place] # (Auto) Eos # (Auto) Baso # (Auto) Immature Gran # (Auto) Absolute Nucleated RBC Nucleated RBC % (auto) Anisocytosis Echinocytes Acanthocytes (Spur) Sodium 135 L Potassium 3.4 L Chloride 100 Carbon Dioxide 28 Anion Gap 7.0 BUN 38 H Creatinine 1.60 H Est Cr Clr Drug Dosing 44.4 Est GFR ( Amer) 39.3 Est GFR (Non-Af Amer) 33.9 BUN/Creatinine Ratio 23.9 H Glucose 71 Fasting Glucose Calcium 9.0 Magnesium Total Bilirubin 4.5 H AST 23 ALT 11 L Alkaline Phosphatase 53 Ammonia Total Protein 5.6 L Albumin 3.1 L Globulin 2.5 Albumin/Globulin Ratio 1.2 Vitamin B12 Diagnostic Findings Paracentesis Ultrasound 07/04/21 00:00 ULTRASOUND-GUIDED THERAPEUTIC PARACENTESIS: HISTORY: Ascites. Procedure: The procedure and its risks, benefits and alternatives were discussed with the patient and written informed consent was obtained. Preliminary ultrasound of the abdomen was performed to determine a safe needle entry site. The left lower quadrant was prepped and draped in the usual sterile fashion. 1% Lidocaine was used for local anesthesia. A paracentesis needle-sheath was inserted into the peritoneal space using ultrasound guidance. The needle was removed and the sheath was connected to tubing and a vacuum suction device. A total of 3 liters of yellow ascites was aspirated. The sheath was removed and a sterile dressing applied. The patient tolerated the procedure well and there were no immediate complications. IMPRESSION: Ultrasound-guided therapeutic paracentesis with aspiration of 3 liters of ascites. ACT 112: Negative or not required by law. Electronically signed by: Tevin Kim M.D. 07/04/2021 10:17 AM
[2021-07-05 08:20] LABS: INR 2.2 (0.9-1.1)
[2021-07-05] MEDS: rifAXIMin 550 MG TABLET PO SCH ×2 (08:27→20:29)
[2021-07-05] MEDS: MIDODRINE HCL 10 MG TAB PO SCH ×3 (08:27→16:40)
[2021-07-05] MEDS: POTASSIUM CHLORIDE 10 MEQ TABCR PO SCH ×2 (08:28→20:29)
[2021-07-05] MEDS: FUROSEMIDE 80 MG TAB PO SCH (08:28)
[2021-07-05] MEDS: GABAPENTIN 300 MG CAP PO SCH ×2 (08:28→20:29)
[2021-07-05] MEDS: PANTOprazole 40 MG TAB PO SCH ×2 (08:29→20:29)
[2021-07-05] MEDS: SPIRONOLACTONE 25 MG TAB PO SCH (08:29)
[2021-07-05] MEDS: LACTULOSE SYRUP 20 GM/30 ML UDC PO SCH ×2 (08:29→20:29)
[2021-07-05] MEDS: PROPRANOLOL HCL 20 MG TAB PO SCH ×2 (08:30→20:27)
[2021-07-05] MEDS: FLUTICASONE/VILANTEROL 100/25MCG 14 PUFFS/INHALER INH SCH (08:30)
[2021-07-05] MEDS: oxyCODONE HCL IR 5 MG TAB (IMMEDIATE RELEASE) PO PRN (08:34)
[2021-07-05] MEDS ORDERED: metOLazone 2.5 MG TABLET PO SCH (09:00)
[2021-07-05] MEDS ORDERED: SODIUM CHLORIDE 0.9% 250 ML IV PRN (09:45)
--- NOTE | 2021-07-05 10:35 | Nephrology Progress Note ---
Date of Service July 05, 2021 Assessment & Plan (1) Acute kidney injury: Plan: Kidney function stable with creatinine 1.6 mg/dL. Electrolytes acceptable. non- oliguric. Urine sodium is not consistent with acute HRS. Creatinine at baseline from prior admission to [facility]. (2) Chronic diastolic congestive heart failure: Plan: Non-oliguric. Responding to diuretics. Certainly may benefit from goals of care discussion moving forward. Consider palliative care consultation. (3) Liver cirrhosis: Plan: Prognosis guarded. GI following. (4) Portal hypertension with esophageal varices: Plan: Remains on propranolol with acceptable SBP. (5) Ascites due to alcoholic cirrhosis: Plan: s/p paracentesis with 3 L removed yesterday. (6) Dependent edema: (7) Hypoalbuminemia: Plan: Encourge nutrition. Admission and Anticipated Discharge Date Admission Date: July 04, 2021 Subjective No acute events overnight. Frustrated this AM. Ingris stated that she just wants to go home. AM medications sitting in front of her on breakfast tray but she told me that she doesn't feel like taking them. She states that she feels fine but admits to being weak. Overall she thinks that she would do well at home with home therapy and nurses. Admits to some edema but this does not bother her. Review of Systems Review of Systems: All systems reviewed & are unremarkable except as noted in HPI & below Physical Exam Constitutional: well developed and + frail appearing; no acute distress Eyes: + scleral abnormality (icteric); sclerae not anicteric and no corneal abnormality ENMT: Mouth: no oral mucosal abnormality and oral mucous membranes not dry Neck: normal visual inspection and trachea midline Respiratory: normal respiratory effort Auscultation: lungs clear to auscultation bilaterally Cardiovascular: Rate/Rhythm: regular rate Heart Sounds: normal S1 and normal S2 Extremities: + edema Gastrointestinal (Abdomen): Inspection/Auscultation: + abdomen distended and + abdominal edema Musculoskeletal: Extremities: no cyanosis and no clubbing Skin: + jaundice; + abnormal turgor Neurologic: Motor/Sensory: no tremor and no asterixis Psychiatric: Orientation: alert and oriented x 3 Results & Data ([facility]) Vital Signs (Past 12 Hours) Vital Signs Temp Pulse Pulse Resp BP Pulse Ox 07/05/21 07:43 77 07/05/21 07:24 36.3 C L 85 17 91/58 L 96 07/05/21 03:33 36.3 C L 69 18 107/70 94 07/05/21 01:12 36.4 C L 69 18 107/69 95 07/05/21 00:57 36.5 C 70 18 110/72 95 Laboratory Results Laboratory Results - last 24 hr 07/04/21 07/04/21 07/04/21 06:08 10:48 10:48 WBC RBC Hgb Hct MCV MCH MCHC RDW Std Deviation RDW Coeff of Shirley Plt Count MPV Immature Gran % (Auto) Neut % (Auto) Lymph % (Auto) [place] % (Auto) Eos % (Auto) Baso % (Auto) Neut # (Auto) Lymph # (Auto) [place] # (Auto) Eos # (Auto) Baso # (Auto) Immature Gran # (Auto) Absolute Nucleated RBC Nucleated RBC % (auto) Acanthocytes (Spur) PT INR Sodium Potassium Chloride Carbon Dioxide Anion Gap BUN Creatinine Est Cr Clr Drug Dosing Est GFR ( Amer) Est GFR (Non-Af Amer) BUN/Creatinine Ratio Glucose Calcium Magnesium 1.9 Total Bilirubin AST ALT Alkaline Phosphatase Ammonia Total Protein Albumin Globulin Albumin/Globulin Ratio Tumor Marker AFP 2.1 Vitamin B12 821 07/05/21 07/05/21 07/05/21 05:56 05:56 05:56 WBC 4.35 L RBC 2.22 L Hgb 7.3 L Hct 21.9 L MCV 98.6 MCH 32.9 MCHC 33.3 RDW Std Deviation 55.4 H RDW Coeff of Shirley 16.4 H Plt Count 41 L MPV 9.7 Immature Gran % (Auto) 0.2 Neut % (Auto) 81.2 Lymph % (Auto) 10.1 Aurora % (Auto) 4.4 Eos % (Auto) 3.9 Baso % (Auto) 0.2 Neut # (Auto) 3.53 Lymph # (Auto) 0.44 L Aurora # (Auto) 0.19 Eos # (Auto) 0.17 Baso # (Auto) 0.01 Immature Gran # (Auto) 0.01 Absolute Nucleated RBC 0.05 H Nucleated RBC % (auto) 1.1 Acanthocytes (Spur) 2+ PT INR Sodium 135 L Potassium 3.4 L Chloride 100 Carbon Dioxide 28 Anion Gap 7.0 BUN 38 H Creatinine 1.60 H Est Cr Clr Drug Dosing 44.4 Est GFR ( Amer) 39.3 Est GFR (Non-Af Amer) 33.9 BUN/Creatinine Ratio 23.9 H Glucose 71 Calcium 9.0 Magnesium Total Bilirubin 4.5 H AST 23 ALT 11 L Alkaline Phosphatase 53 Ammonia 39.0 H Total Protein 5.6 L Albumin 3.1 L Globulin 2.5 Albumin/Globulin Ratio 1.2 Tumor Marker AFP Vitamin B12 07/05/21 07/05/21 07:57 07:57 WBC RBC Hgb Hct MCV MCH MCHC RDW Std Deviation RDW Coeff of Shirley Plt Count MPV Immature Gran % (Auto) Neut % (Auto) Lymph % (Auto) Aurora % (Auto) Eos % (Auto) Baso % (Auto) Neut # (Auto) Lymph # (Auto) [place] # (Auto) Eos # (Auto) Baso # (Auto) Immature Gran # (Auto) Absolute Nucleated RBC Nucleated RBC % (auto) Acanthocytes (Spur) PT 21.0 H INR 2.2 H Sodium Potassium Chloride Carbon Dioxide Anion Gap BUN Creatinine Est Cr Clr Drug Dosing Est GFR ( Amer) Est GFR (Non-Af Amer) BUN/Creatinine Ratio Glucose Calcium Magnesium 1.9 Total Bilirubin AST ALT Alkaline Phosphatase Ammonia Total Protein Albumin Globulin Albumin/Globulin Ratio Tumor Marker AFP Vitamin B12 PG Care Time/CCT Total # of Minutes Spent Total Time Spent with Patient: Total time spent is greater than 50% in coordination of care (as documented) at patient's floor/unit and/or counseling patient: Coding Level of Care Code 39518 Subseq Hosp Care Lvl 3 Diagnoses Chronic diastolic congestive heart failure I50.32 Liver cirrhosis K74.60 Portal hypertension with esophageal varices K76.6; I85.00 Ascites due to alcoholic cirrhosis K70.31 Dependent edema R60.9 Acute kidney injury N17.9 Hypoalbuminemia E88.09
[2021-07-05 14:54] LABS: Ferritin 229.4 ng/ml (8-388)
[2021-07-05] MEDS ORDERED: bisacodyL 5 MG TABEC PO ONE (16:33)
[2021-07-05] MEDS: DOCUSATE SODIUM/SENNA 50/8.6MG TAB PO SCH (16:40)
[2021-07-05] MEDS: SPIRONOLACTONE 100 MG TAB PO SCH (16:42)
[2021-07-05] MEDS: FUROSEMIDE 40 MG TAB PO SCH (16:42)
--- NOTE | 2021-07-05 17:05 | Cardiology Progress Note ---
Date of Service July 05, 2021 Assessment & Plan (1) Chronic diastolic congestive heart failure: (2) Permanent atrial fibrillation: (3) Pacemaker: (4) Liver cirrhosis: (5) Thrombocytopenia: Plan: She still appears markedly hypervolemic but is comfortable. Hemodynamics reasonable. As long as BP allows, continue her diuretic regimen of furosemide 80 mg daily/spironolactone 50 mg twice daily/metolazone 2.5 mg twice weekly. Once potassium corrected, could increase frequency of metolazone. Atrial fibrillation rate well controlled on propranolol alone. Multiple contraindications to anticoagulation, auto-anticoagulated due to hepatic insufficiency. No new recommendations at this time. Cardiac status stable, will sign off for the weekend, please contact Dr. Kay if any change in clinical status. Admission and Anticipated Discharge Date Admission Date: July 04, 2021 Subjective Patient awake and alert, no complaints. Telemetry showed atrial fibrillation with controlled ventricular response. I/O-700. Weight unreliable (up 16 pounds?) Physical Exam Physical Exam: No distress. BP mildly hypotensive, but patient appears well perfused. Pulse 84 bpm and irregular. Skin: no ecchymoses or generalized lesions. HEENT: unremarkable. Neck: Jugular venous pulse elevated to the angle of the jaw at 90 degrees, no carotid bruits. Lungs: clear bilaterally Cardiac: Irregular rhythm, difficult exam with faint heart tones, no obvious murmur or gallop. Abdomen: benign. Extremities: 2+ pretibial edema, pulses intact. Neurologic: Unsophisticated affect, poor insight, grossly nonfocal. Results & Data ([facility]) Vital Signs (Past 12 Hours) Vital Signs Temp Pulse Pulse Resp BP Pulse Ox 07/05/21 15:21 97.3 F L 84 18 90/60 L 96 07/05/21 15:10 73 07/05/21 10:51 97.5 F L 83 19 101/66 90 07/05/21 07:43 77 07/05/21 07:24 97.3 F L 85 17 91/58 L 96 Laboratory Results Potassium 3.4, BUN 38/creatinine 1.6 (stable). INR 2.2. PG Care Time/CCT Total # of Minutes Spent Total Time Spent with Patient: Total time spent is greater than 50% in coordination of care (as documented) at patient's floor/unit and/or counseling patient: Coding Level of Care Code 03749 Subseq Hosp Care Lvl 3 Diagnoses Chronic diastolic congestive heart failure I50.32 Permanent atrial fibrillation I48.21 Pacemaker Z95.0 Liver cirrhosis K74.60 Thrombocytopenia D69.6
[2021-07-06] MEDS ORDERED: SENNA 8.6 MG TAB PO STA (05:11)
[2021-07-06] MEDS: LEVOTHYROXINE SODIUM 75 MCG TABLET PO SCH (05:27)
[2021-07-06] MEDS: oxyCODONE HCL IR 5 MG TAB (IMMEDIATE RELEASE) PO PRN (05:34)
[2021-07-06 06:37] LABS: Hematocrit (blood only) 23.4 % (37-47); Hemoglobin 7.9 g/dL (12.0-16.0); Mean Corpuscular Hemoglobin 33.5 pg (25-34); Mean Corpuscular Hgb Conc 33.8 g/dL (32-36); Mean Corpuscular Volume 99.2 fL (80-100); RDW Coefficient of Variation 16.5 % (11.5-14.5); RDW Standard Deviation 55.9 fL (36.4-46.3); Red Blood Count 2.36 M/uL (4.2-5.4); White Blood Count 6.69 K/uL (4.8-10.8)
[2021-07-06 06:39] LABS: Mean Platelet Volume 10.3 fL (7.4-10.4); Platelet Count 47 K/uL (130-400)
[2021-07-06 06:45] LABS: INR 2.1 (0.9-1.1); Prothrombin Time 20.1 Seconds (9.0-12.0)
[2021-07-06 07:00] LABS: Acanthocytes 2+; Basophils # (auto) 0.01 K/uL (0-0.2); Basophils % (auto) 0.1 %; Eosinophils # (auto) 0.19 K/uL (0-0.5); Eosinophils % (auto) 2.8 %; Immature Granulocytes # (auto) 0.01 K/uL (0.00-0.02); Immature Granulocytes % (auto) 0.1 %; Lymphocytes # (auto) 0.55 K/uL (1.2-3.4); Lymphocytes % (auto) 8.2 %; Monocytes # (auto) 0.21 K/uL (0.11-0.59); Monocytes % (auto) 3.1 %; Neutrophils # (auto) 5.72 K/uL (1.4-6.5); Neutrophils % (auto) 85.7 %; Target Cells 1+
[2021-07-06 07:08] LABS: Albumin Globulin Ratio 0.9 (0.9-2); Albumin Level 2.6 gm/dl (3.4-5.0); BUN Creatinine Ratio 25.2 (10-20); Bilirubin,Total 5.5 mg/dl (0.2-1); Calcium 9.1 mg/dl (8.5-10.1); Creatinine Clr Calc Pharmacy 42.5 ml/min; Est GFR (African American) 37.4 ml/min; Est GFR (Non-African American) 32.2 ml/min; Potassium 4.4 mmol/L (3.5-5.1); Total Protein 5.6 gm/dl (6.4-8.2)
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
[2021-07-06] MEDS: DOCUSATE SODIUM/SENNA 50/8.6MG TAB PO SCH (08:21)
[2021-07-06] MEDS: GABAPENTIN 300 MG CAP PO SCH ×2 (08:21→20:58)
[2021-07-06] MEDS: PANTOprazole 40 MG TAB PO SCH ×2 (08:21→20:58)
[2021-07-06] MEDS: FUROSEMIDE 40 MG TAB PO SCH ×2 (08:21→16:10)
[2021-07-06] MEDS: POTASSIUM CHLORIDE CRTAB 20 MEQ TABCR PO SCH ×2 (08:21→20:59)
[2021-07-06] MEDS: rifAXIMin 550 MG TABLET PO SCH ×2 (08:21→20:59)
[2021-07-06] MEDS: PROPRANOLOL HCL 20 MG TAB PO SCH ×2 (08:22→20:59)
[2021-07-06] MEDS: FLUTICASONE/VILANTEROL 100/25MCG 14 PUFFS/INHALER INH SCH (08:22)
[2021-07-06] MEDS: MIDODRINE HCL 10 MG TAB PO SCH ×3 (08:22→16:08)
[2021-07-06] MEDS: SPIRONOLACTONE 100 MG TAB PO SCH ×2 (08:22→16:10)
[2021-07-06] MEDS ORDERED: LACTULOSE SYRUP 20 GM/30 ML UDC PO SCH (09:00)
[2021-07-06] MEDS ORDERED: LINEZOLID CONSULT ACTIVE PRN (09:23)
[2021-07-06] MEDS ORDERED: SODIUM CHLORIDE 0.9% 250 ML IV PRN (09:44)
--- NOTE | 2021-07-06 10:00 | XRay Report ---
XR KUB/Abdomen 1 view CLINICAL HISTORY: Constipation TECHNIQUE: 1 view of the abdomen was obtained. Comparison: None available at the time of this dictation. FINDINGS: Lung bases are unremarkable. The osseous structures are grossly unremarkable. The bowel gas pattern i s nonobstructive. A moderate amount of stool is noted within the large bowel. IMPRESSION: Nonobstructive bowel gas pattern. ACT 112: Negative or not required by law. Electronically signed by: Aj Gutierrez M.D. 07/06/2021 9:59 AM
--- NOTE | 2021-07-06 10:07 | Nephrology Progress Note ---
Date of Service July 06, 2021 Assessment & Plan (1) Acute kidney injury: Plan: * Cr at baseline from prior admission to [facility] (Cr 1.6). Electrolytes acceptable, remains non-oliguric * Urine sodium is not consistent with acute HRS (2) Liver cirrhosis: Plan: * s/p 3L paracentesis 07/04/21 * Agree w/ current diuretic regimen of Furosemide 40 mg po BID, Spironolactone 100 mg po BID * Recommend avoiding thiazide diuretics * ESLD. Prognosis guarded. GI following * Consider palliative care consultation (3) Portal hypertension with esophageal varices: Plan: * Remains on propranolol (4) Anemia: Plan: * Recommend blood transfusion to maintain Hgb > 8.0 Admission and Anticipated Discharge Date Admission Date: July 04, 2021 Subjective Ms. Reid was evaluated in her hospital room this morning. She c/o diarrhea associated w/ her lactulose therapy. She denies fever, dyspnea or abdominal pain Review of Systems Constitutional: + weakness; no fever Eyes: no problem reported Ear, Nose, Mouth, Throat: no problem reported Respiratory: no dyspnea Cardiovascular: + edema; no chest pain Gastrointestinal: + diarrhea/loose stools; no abdominal pain Genitourinary: no dysuria and no hematuria Integumentary: no rash Physical Exam Constitutional: + ill appearing Eyes: PERRL, conjunctivae normal, anicteric sclerae ENMT: external ear and nose normal, oropharynx normal Neck: trachea midline, no thyromegaly Respiratory: normal respiratory effort, lungs clear to auscultation Cardiovascular: Rate/Rhythm: regular rate and regular rhythm Extremities: + edema (2+ LE pitting edema) Gastrointestinal (Abdomen): Inspection/Auscultation: + hypoactive bowel sounds Percussion/Palpation: abdomen soft; abdomen nontender Results & Data ([facility]) Vital Signs (Past 12 Hours) Vital Signs Temp Pulse Pulse Resp BP BP Pulse Ox 07/06/21 07:52 36.7 C 85 18 93/59 L 96 07/06/21 07:39 86 07/06/21 04:40 36.6 C 89 20 111/71 98 07/06/21 04:20 77 07/05/21 22:50 36.4 C L 81 18 95/62 L 96 Laboratory Results Laboratory Tests 07/06/21 07/06/21 07/06/21 06:15 06:15 06:15 WBC 6.69 Hgb 7.9 L Hct 23.4 L Plt Count 47 L Sodium 134 L Potassium 4.4 D Chloride 99 Carbon Dioxide 28 BUN 42 H Creatinine 1.67 H Glucose 72 Ammonia 47.0 H Albumin 2.6 L PG Care Time/CCT Total # of Minutes Spent Total Time Spent with Patient: Total time spent is greater than 50% in coordination of care (as documented) at patient's floor/unit and/or counseling patient: Coding Level of Care Code 74161 Subseq Hosp Care Lvl 3 Diagnoses Acute kidney injury N17.9 Liver cirrhosis K74.60 Portal hypertension with esophageal varices K76.6; I85.00 Anemia D64.9
[2021-07-06] MEDS: LINEZOLID 600 MG TAB PO SCH ×2 (11:20→20:58)
[2021-07-06] MEDS: MICONAZOLE NITRATE POWDER 43 GM EXT SCH ×2 (11:20→20:58)
--- NOTE | 2021-07-06 12:53 | Gastroenterology Progress Note ---
Date of Service July 06, 2021 Assessment & Plan (1) Liver cirrhosis: Plan: ESLD--outpt f/u with [facility] liver transplant team --she was seen there before. Continue present care If not having 2-3 BM per day, increase lactulose. Agree with one unit transfusion Admission and Anticipated Discharge Date Admission Date: July 04, 2021 Supervising Physician Co-Signing Physician Notes Subjective Doing better, no complaints. She anticipates going to [place] for transplant evaluation. Denies any pain. Getting a unit transfused that she actually was not aware of Review of Systems Respiratory: no dyspnea Gastrointestinal: only one bm Physical Exam Physical Exam: REsting in bed. Woke up from a nap and spoke coherently Eyes: Jaundice Respiratory: Clear Cardiovascular: Rate/Rhythm: regular rate Gastrointestinal (Abdomen): Inspection/Auscultation: + abdomen distended Percussion/Palpation: abdomen soft Neurologic: awake Psychiatric: Orientation: alert and oriented x 3 Affect: euthymic affect Results & Data ([facility]) Vital Signs (Past 12 Hours) Vital Signs Temp Pulse Pulse Resp BP BP Pulse Ox 07/06/21 12:15 36.6 C 89 16 107/72 95 07/06/21 11:58 36.4 C L 86 16 113/72 96 07/06/21 11:40 36.3 C L 84 15 107/73 98 07/06/21 07:52 36.7 C 85 18 93/59 L 96 07/06/21 07:39 86 07/06/21 04:40 36.6 C 89 20 111/71 98 07/06/21 04:20 77
[2021-07-06] MEDS: LACTULOSE SYRUP 20 GM/30 ML UDC PO SCH ×3 (14:01→21:08)
[2021-07-07] MEDS: LEVOTHYROXINE SODIUM 75 MCG TABLET PO SCH (05:53)
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
[2021-07-07] MEDS: FUROSEMIDE 40 MG TAB PO SCH ×2 (08:34→16:19)
[2021-07-07] MEDS: GABAPENTIN 300 MG CAP PO SCH ×2 (08:34→20:23)
[2021-07-07] MEDS: FLUTICASONE/VILANTEROL 100/25MCG 14 PUFFS/INHALER INH SCH (08:34)
[2021-07-07] MEDS: LINEZOLID 600 MG TAB PO SCH ×2 (08:34→20:23)
[2021-07-07] MEDS: rifAXIMin 550 MG TABLET PO SCH ×2 (08:34→20:24)
[2021-07-07] MEDS: POTASSIUM CHLORIDE CRTAB 20 MEQ TABCR PO SCH ×2 (08:34→20:23)
[2021-07-07] MEDS: PANTOprazole 40 MG TAB PO SCH ×2 (08:34→20:23)
[2021-07-07] MEDS: DOCUSATE SODIUM/SENNA 50/8.6MG TAB PO SCH (08:34)
[2021-07-07] MEDS: LACTULOSE SYRUP 20 GM/30 ML UDC PO SCH ×3 (08:35→20:20)
[2021-07-07] MEDS: MICONAZOLE NITRATE POWDER 43 GM EXT SCH ×2 (08:35→20:29)
[2021-07-07] MEDS: MIDODRINE HCL 10 MG TAB PO SCH ×3 (08:35→16:19)
[2021-07-07] MEDS: SPIRONOLACTONE 100 MG TAB PO SCH ×2 (08:36→16:19)
--- NOTE | 2021-07-07 09:17 | Gastroenterology Progress Note ---
Date of Service July 07, 2021 Assessment & Plan (1) Liver cirrhosis: Plan: Maintain current regimen. Drop in Hct without show of blood. Nurse note FOB negative Rec another transfusion. Follow counts, check reticulocyte count. Plan: Transfuse today. Admission and Anticipated Discharge Date Admission Date: July 04, 2021 Subjective Feels good. Wants to go home. no complaints. Had more BM. slept well Review of Systems Gastrointestinal: no coffee ground emesis and no blood in stools Physical Exam Physical Exam: unchanged, NAD, lying in bed. Gastrointestinal (Abdomen): Inspection/Auscultation: + abdomen distended Percussion/Palpation: abdomen soft; abdomen nontender Neurologic: awake Psychiatric: Orientation: alert and oriented x 3 Affect: euthymic affect Results & Data ([facility]) Vital Signs (Past 12 Hours) Vital Signs Temp Pulse Pulse Resp BP BP Pulse Ox 07/07/21 08:00 36.5 C 85 18 98/59 L 97 07/07/21 07:07 82 07/07/21 03:46 36.5 C 67 18 94/58 L 97 07/07/21 02:18 78 07/06/21 22:45 36.3 C L 70 18 97/61 L 98 Diagnostic Findings Decreasing blood counts
--- NOTE | 2021-07-07 09:25 | Nephrology Progress Note ---
Date of Service July 07, 2021 Assessment & Plan (1) Acute kidney injury: Plan: * Cr at baseline from prior admission to [facility] (Cr 1.6). Patient remains non- oliguric. Awaiting am lab results * Urine sodium is not consistent with acute HRS (2) Liver cirrhosis: Plan: * s/p 3L paracentesis 07/04/21 * Agree w/ current diuretic regimen of Furosemide 40 mg po BID, Spironolactone 100 mg po BID * Recommend avoiding thiazide diuretics * ESLD. Prognosis guarded. GI following * Consider palliative care consultation (3) Portal hypertension with esophageal varices: Plan: * Remains on propranolol (4) Anemia: Plan: * Recommend blood transfusion to maintain Hgb > 8.0 Admission and Anticipated Discharge Date Admission Date: July 04, 2021 Subjective Ms. Reid was evaluated in her hospital room this morning. She denies fever, dyspnea or abdominal pain. She reports that she quit drinking alcohol 1.5 years ago. She is anxious to go home. Review of Systems Constitutional: + weakness; no fever Eyes: no problem reported Ear, Nose, Mouth, Throat: no problem reported Respiratory: no dyspnea Cardiovascular: + edema; no chest pain Gastrointestinal: + diarrhea/loose stools; no abdominal pain Genitourinary: no dysuria and no hematuria Integumentary: no rash Physical Exam Constitutional: + ill appearing Eyes: PERRL, conjunctivae normal, anicteric sclerae ENMT: external ear and nose normal, oropharynx normal Neck: trachea midline, no thyromegaly Respiratory: normal respiratory effort, lungs clear to auscultation Cardiovascular: Rate/Rhythm: regular rate and regular rhythm Extremities: + edema (2+ LE pitting edema) Gastrointestinal (Abdomen): Inspection/Auscultation: + hypoactive bowel sounds Percussion/Palpation: abdomen soft; abdomen nontender Results & Data ([facility]) Vital Signs (Past 12 Hours) Vital Signs Temp Pulse Pulse Resp BP BP Pulse Ox 07/07/21 08:00 36.5 C 85 18 98/59 L 97 07/07/21 07:07 82 07/07/21 03:46 36.5 C 67 18 94/58 L 97 07/07/21 02:18 78 07/06/21 22:45 36.3 C L 70 18 97/61 L 98 Laboratory Results AM labs have not yet been drawn PG Care Time/CCT Total # of Minutes Spent Total Time Spent with Patient: Total time spent is greater than 50% in coordination of care (as documented) at patient's floor/unit and/or counseling patient: Coding Level of Care Code 36074 Subseq Hosp Care Lvl 3 Diagnoses Acute kidney injury N17.9 Liver cirrhosis K74.60 Portal hypertension with esophageal varices K76.6; I85.00 Anemia D64.9
[2021-07-07 09:26] LABS: Hematocrit (blood only) 28.5 % (37-47); Hemoglobin 9.5 g/dL (12.0-16.0); Mean Corpuscular Hemoglobin 32.2 pg (25-34); Mean Corpuscular Hgb Conc 33.3 g/dL (32-36); Mean Corpuscular Volume 96.6 fL (80-100); RDW Coefficient of Variation 16.2 % (11.5-14.5); Red Blood Count 2.95 M/uL (4.2-5.4); White Blood Count 7.38 K/uL (4.8-10.8)
[2021-07-07 09:34] LABS: INR 1.9 (0.9-1.1); Prothrombin Time 18.4 Seconds (9.0-12.0)
[2021-07-07] MEDS: PROPRANOLOL HCL 20 MG TAB PO SCH ×2 (09:34→20:23)
[2021-07-07 09:37] LABS: Platelet Count 35 K/uL (130-400)
[2021-07-07 09:42] LABS: Acanthocytes 2+; Basophils # (auto) 0.01 K/uL (0-0.2); Basophils % (auto) 0.1 %; Eosinophils # (auto) 0.17 K/uL (0-0.5); Eosinophils % (auto) 2.3 %; Immature Granulocytes # (auto) 0.01 K/uL (0.00-0.02); Immature Granulocytes % (auto) 0.1 %; Lymphocytes % (auto) 8.1 %; Monocytes # (auto) 0.12 K/uL (0.11-0.59); Monocytes % (auto) 1.6 %; Neutrophils # (auto) 6.47 K/uL (1.4-6.5); Neutrophils % (auto) 87.8 %; Target Cells 1+
[2021-07-07 09:51] LABS: Albumin Globulin Ratio 0.8 (0.9-2); Albumin Level 2.6 gm/dl (3.4-5.0); Bilirubin,Total 6.8 mg/dl (0.2-1); Calcium 9.1 mg/dl (8.5-10.1); Creatinine Clr Calc Pharmacy 44.3 ml/min; Est GFR (African American) 37.9 ml/min; Est GFR (Non-African American) 32.7 ml/min; Globulin 3.1 gm/dl (2.5-4.0); Magnesium 1.8 mg/dl (1.8-2.4); Potassium 4.5 mmol/L (3.5-5.1); Total Protein 5.7 gm/dl (6.4-8.2)
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
[2021-07-07] MEDS: FOLIC ACID 1 MG TAB PO SCH (16:49)
[2021-07-08] MEDS: oxyCODONE HCL IR 5 MG TAB (IMMEDIATE RELEASE) PO PRN (02:18)
[2021-07-08 06:57] LABS: Hematocrit (blood only) 25.6 % (37-47); Hemoglobin 8.6 g/dL (12.0-16.0); Mean Corpuscular Hemoglobin 32.2 pg (25-34); Mean Corpuscular Hgb Conc 33.6 g/dL (32-36); Mean Corpuscular Volume 95.9 fL (80-100); RDW Coefficient of Variation 16.1 % (11.5-14.5); RDW Standard Deviation 54.3 fL (36.4-46.3); Red Blood Count 2.67 M/uL (4.2-5.4); White Blood Count 7.85 K/uL (4.8-10.8)
[2021-07-08] MEDS: LEVOTHYROXINE SODIUM 100 MCG TABLET PO SCH (06:59)
[2021-07-08 07:36] LABS: Albumin Globulin Ratio 0.8 (0.9-2); Albumin Level 2.4 gm/dl (3.4-5.0); Calcium 9.4 mg/dl (8.5-10.1); Creatinine Clr Calc Pharmacy 44.6 ml/min; Est GFR (African American) 38.2 ml/min; Est GFR (Non-African American) 32.9 ml/min; Potassium 4.4 mmol/L (3.5-5.1); Total Protein 5.4 gm/dl (6.4-8.2)
[2021-07-08 07:40] LABS: Acanthocytes 1+; Basophils # (auto) 0.01 K/uL (0-0.2); Basophils % (auto) 0.1 %; Echinocytes 1+; Eosinophils # (auto) 0.16 K/uL (0-0.5); Immature Granulocytes # (auto) 0.01 K/uL (0.00-0.02); Immature Granulocytes % (auto) 0.1 %; Lymphocytes # (auto) 0.72 K/uL (1.2-3.4); Lymphocytes % (auto) 9.2 %; Mean Platelet Volume 10.5 fL (7.4-10.4); Monocytes % (auto) 3.8 %; Neutrophils # (auto) 6.65 K/uL (1.4-6.5); Neutrophils % (auto) 84.8 %; Platelet Count 40 K/uL (130-400)
--- NOTE | 2021-07-08 08:44 | Gastroenterology Progress Note ---
Date of Service July 08, 2021 Assessment & Plan (1) Liver cirrhosis: Plan: Liver cirrhosis: Maintain current regimen. Continue to follow counts, check reticulocyte count. Transfuse as needed. Recommend 2-3 bowel movements per day and increasing lactulose as needed to have this level of output. End-stage liver disease: Outpatient follow-up with [facility] liver transplant team as patient has been seen there previously. Please refer to supervising physician addendum for further recommendations. Admission and Anticipated Discharge Date Admission Date: July 04, 2021 Supervising Physician Co-Signing Physician Notes I have seen and examined the patient. I agree with note above by SARTHAK Bucio except as noted below. HPI Pt denies abd pain. PE Abdomen pos bs, soft, no guarding nor rebound A/P Ascites ESLD Pt overall stable and could be DCed from GI standpoint. Recommend outpt liver f/u at [facility] for consideration of liver transplant. Sound like plan for SNF placement. If [facility] GI follow up desired by patient/family then contact our office. Will sign off. Please call for further questions. Subjective The patient is alert and oriented lying in position of comfort in the bed this morning. She states she is feeling pretty good this morning. She wants to go home for Thanksgiving. On exam/interview, she denies any nausea, vomiting, abdominal pain. Reports she is eating well and tolerating a regular diet. She reports she is passing gas. Nursing documentation reviewed. Reports most recent bowel movement last night moderate in size and soft. No blood noted in stool. Review of Systems Review of Systems: All systems reviewed & are unremarkable except as noted in Subjective Physical Exam Physical Exam: unchanged, NAD, lying in bed. Cardiovascular: Extremities: + edema (Bilateral lower) Gastrointestinal (Abdomen): Inspection/Auscultation: + abdomen distended Percussion/Palpation: abdomen soft and + tympanic to percussion; abdomen nontender Neurologic: awake Psychiatric: Orientation: alert and oriented x 3 Affect: euthymic affect Results & Data ([facility]) Vital Signs (Past 12 Hours) Vital Signs Temp Pulse Pulse Resp BP Pulse Ox 07/08/21 07:57 36.5 C 84 18 105/72 93 07/08/21 07:22 74 07/07/21 23:23 36.9 C 70 18 118/74 96 07/07/21 22:19 75 Laboratory Results Laboratory Results - last 24 hr 07/07/21 07/07/21 07/07/21 08:28 09:18 09:18 WBC RBC Hgb Hct MCV MCH MCHC RDW Std Deviation RDW Coeff of Shirley Plt Count MPV Immature Gran % (Auto) Neut % (Auto) Lymph % (Auto) Green % (Auto) Eos % (Auto) Baso % (Auto) Neut # (Auto) Lymph # (Auto) Green # (Auto) Eos # (Auto) Baso # (Auto) Immature Gran # (Auto) Target Cells Echinocytes Acanthocytes (Spur) PT 18.4 H INR 1.9 H Sodium 135 L Potassium 4.5 Chloride 100 Carbon Dioxide 26 Anion Gap 9.0 BUN 43 H Creatinine 1.65 H Est Cr Clr Drug Dosing 44.3 Est GFR ( Amer) 37.9 Est GFR (Non-Af Amer) 32.7 BUN/Creatinine Ratio 26.0 H Glucose 109 H Calcium 9.1 Magnesium 1.8 Total Bilirubin 6.8 H AST 29 ALT 13 Alkaline Phosphatase 64 Ammonia Total Protein 5.7 L Albumin 2.6 L Globulin 3.1 Albumin/Globulin Ratio 0.8 L Stool Occult Bld Scrn Negative 07/07/21 07/07/21 07/08/21 09:18 09:19 06:06 WBC 7.38 7.85 RBC 2.95 L 2.67 L Hgb 9.5 L 8.6 L Hct 28.5 L 25.6 L MCV 96.6 95.9 MCH 32.2 32.2 MCHC 33.3 33.6 RDW Std Deviation 54.0 H 54.3 H RDW Coeff of Shirley 16.2 H 16.1 H Plt Count 35 L 40 L MPV 10.0 10.5 H Immature Gran % (Auto) 0.1 0.1 Neut % (Auto) 87.8 84.8 Lymph % (Auto) 8.1 9.2 Green % (Auto) 1.6 3.8 Eos % (Auto) 2.3 2.0 Baso % (Auto) 0.1 0.1 Neut # (Auto) 6.47 6.65 H Lymph # (Auto) 0.60 L 0.72 L Green # (Auto) 0.12 0.30 Eos # (Auto) 0.17 0.16 Baso # (Auto) 0.01 0.01 Immature Gran # (Auto) 0.01 0.01 Target Cells 1+ Echinocytes 1+ Acanthocytes (Spur) 2+ 1+ PT INR Sodium Potassium Chloride Carbon Dioxide Anion Gap BUN Creatinine Est Cr Clr Drug Dosing Est GFR ( Amer) Est GFR (Non-Af Amer) BUN/Creatinine Ratio Glucose Calcium Magnesium Total Bilirubin AST ALT Alkaline Phosphatase Ammonia 35.0 H Total Protein Albumin Globulin Albumin/Globulin Ratio Stool Occult Bld Scrn 07/08/21 06:06 WBC RBC Hgb Hct MCV MCH MCHC RDW Std Deviation RDW Coeff of Shirley Plt Count MPV Immature Gran % (Auto) Neut % (Auto) Lymph % (Auto) Green % (Auto) Eos % (Auto) Baso % (Auto) Neut # (Auto) Lymph # (Auto) Green # (Auto) Eos # (Auto) Baso # (Auto) Immature Gran # (Auto) Target Cells Echinocytes Acanthocytes (Spur) PT INR Sodium 135 L Potassium 4.4 Chloride 100 Carbon Dioxide 29 Anion Gap 6.0 BUN 44 H Creatinine 1.64 H Est Cr Clr Drug Dosing 44.6 Est GFR ( Amer) 38.2 Est GFR (Non-Af Amer) 32.9 BUN/Creatinine Ratio 27.0 H Glucose 82 Calcium 9.4 Magnesium Total Bilirubin 6.0 H AST 32 ALT 12 Alkaline Phosphatase 66 Ammonia Total Protein 5.4 L Albumin 2.4 L Globulin 3.0 Albumin/Globulin Ratio 0.8 L Stool Occult Bld Scrn
[2021-07-08] MEDS: POTASSIUM CHLORIDE CRTAB 20 MEQ TABCR PO SCH ×2 (09:46→19:44)
[2021-07-08] MEDS: PANTOprazole 40 MG TAB PO SCH ×2 (09:46→21:25)
[2021-07-08] MEDS: PROPRANOLOL HCL 20 MG TAB PO SCH ×2 (09:46→19:43)
[2021-07-08] MEDS: LINEZOLID 600 MG TAB PO SCH ×2 (09:46→19:44)
[2021-07-08] MEDS: SPIRONOLACTONE 100 MG TAB PO SCH ×2 (09:46→16:25)
[2021-07-08] MEDS: DOCUSATE SODIUM/SENNA 50/8.6MG TAB PO SCH (09:47)
[2021-07-08] MEDS: MIDODRINE HCL 10 MG TAB PO SCH ×3 (09:47→16:25)
[2021-07-08] MEDS: FLUTICASONE/VILANTEROL 100/25MCG 14 PUFFS/INHALER INH SCH (09:47)
[2021-07-08] MEDS: FOLIC ACID 1 MG TAB PO SCH (09:47)
[2021-07-08] MEDS: GABAPENTIN 300 MG CAP PO SCH ×2 (09:47→19:44)
[2021-07-08] MEDS: FUROSEMIDE 40 MG TAB PO SCH ×2 (09:47→16:25)
[2021-07-08] MEDS: LACTULOSE SYRUP 20 GM/30 ML UDC PO SCH ×3 (09:47→19:44)
[2021-07-08] MEDS: MICONAZOLE NITRATE POWDER 43 GM EXT SCH ×2 (09:48→19:47)
--- NOTE | 2021-07-08 10:26 | Nephrology Progress Note ---
Date of Service July 08, 2021 Assessment & Plan (1) Acute kidney injury: Plan: * Cr at baseline from prior admission to [facility] (Cr 1.6). Patient remains non- oliguric. Awaiting am lab results * Urine sodium is not consistent with acute HRS (2) Liver cirrhosis: Plan: * s/p 3L paracentesis 07/04/21 * Agree w/ current diuretic regimen of Furosemide 40 mg po BID, Spironolactone 100 mg po BID * Recommend avoiding thiazide diuretics * ESLD. Prognosis guarded * Palliative care consultation: full code, patient expects to return home. property staff accountant reports that she has severe deconditioning (3) Portal hypertension with esophageal varices: Plan: * Remains on propranolol (4) Anemia: Plan: * Recommend blood transfusion to maintain Hgb > 8.0 Admission and Anticipated Discharge Date Admission Date: July 04, 2021 Subjective Ms. Reid was evaluated in her hospital room this morning. She denies fever, dyspnea or abdominal pain. She reports that she quit drinking alcohol 1.5 years ago. She is anxious to go home for Thanksgiving. property staff accountant reports that patient required full assist to stand for weight this morning and refused to try to sit in chair yesterday Review of Systems Constitutional: + weakness; no fever Eyes: no problem reported Ear, Nose, Mouth, Throat: no problem reported Respiratory: no dyspnea Cardiovascular: + edema; no chest pain Gastrointestinal: + diarrhea/loose stools; no abdominal pain Genitourinary: no dysuria and no hematuria Integumentary: no rash Physical Exam Constitutional: + ill appearing Eyes: PERRL, conjunctivae normal, anicteric sclerae ENMT: external ear and nose normal, oropharynx normal Neck: trachea midline, no thyromegaly Respiratory: normal respiratory effort, lungs clear to auscultation Cardiovascular: Rate/Rhythm: regular rate and regular rhythm Extremities: + edema (2+ LE pitting edema) Gastrointestinal (Abdomen): Inspection/Auscultation: + abdomen distended and + hypoactive bowel sounds Percussion/Palpation: abdomen soft; abdomen nontender Results & Data ([facility]) Vital Signs (Past 12 Hours) Vital Signs Temp Pulse Pulse Resp BP Pulse Ox 07/08/21 07:57 36.5 C 84 18 105/72 93 07/08/21 07:22 74 07/07/21 23:23 36.9 C 70 18 118/74 96 07/07/21 22:19 75 Laboratory Results Laboratory Tests 07/08/21 07/08/21 06:06 06:06 WBC 7.85 Hgb 8.6 L Hct 25.6 L Plt Count 40 L Sodium 135 L Potassium 4.4 Chloride 100 Carbon Dioxide 29 BUN 44 H Creatinine 1.64 H Glucose 82 PG Care Time/CCT Total # of Minutes Spent Total Time Spent with Patient: Total time spent is greater than 50% in coordination of care (as documented) at patient's floor/unit and/or counseling patient: Coding Level of Care Code 07612 Subseq Hosp Care Lvl 3 Diagnoses Acute kidney injury N17.9 Liver cirrhosis K74.60 Portal hypertension with esophageal varices K76.6; I85.00 Anemia D64.9
[2021-07-08] MEDS: rifAXIMin 550 MG TABLET PO SCH ×2 (11:10→21:25)
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
[2021-07-09] MEDS: oxyCODONE HCL IR 5 MG TAB (IMMEDIATE RELEASE) PO PRN ×2 (03:48→16:07)
[2021-07-09] MEDS: LEVOTHYROXINE SODIUM 100 MCG TABLET PO SCH (06:00)
[2021-07-09] MEDS: SPIRONOLACTONE 100 MG TAB PO SCH ×3 (08:35→17:29)
[2021-07-09] MEDS: rifAXIMin 550 MG TABLET PO SCH ×2 (08:35→21:11)
[2021-07-09] MEDS: DOCUSATE SODIUM/SENNA 50/8.6MG TAB PO SCH (08:35)
[2021-07-09] MEDS: POTASSIUM CHLORIDE CRTAB 20 MEQ TABCR PO SCH ×2 (08:35→21:11)
[2021-07-09] MEDS: FOLIC ACID 1 MG TAB PO SCH (08:35)
[2021-07-09] MEDS: PANTOprazole 40 MG TAB PO SCH ×2 (08:35→21:11)
[2021-07-09] MEDS: GABAPENTIN 300 MG CAP PO SCH ×2 (08:35→21:12)
[2021-07-09] MEDS: MIDODRINE HCL 10 MG TAB PO SCH ×3 (08:35→16:11)
[2021-07-09] MEDS: MICONAZOLE NITRATE POWDER 43 GM EXT SCH ×2 (08:36→21:10)
[2021-07-09] MEDS: PROPRANOLOL HCL 20 MG TAB PO SCH ×2 (08:36→21:12)
[2021-07-09] MEDS: LINEZOLID 600 MG TAB PO SCH ×2 (08:37→21:12)
[2021-07-09] MEDS: LACTULOSE SYRUP 20 GM/30 ML UDC PO SCH ×3 (08:37→21:11)
[2021-07-09] MEDS: FLUTICASONE/VILANTEROL 100/25MCG 14 PUFFS/INHALER INH SCH (08:38)
[2021-07-09] MEDS: FUROSEMIDE 40 MG TAB PO SCH ×2 (08:40→17:29)
[2021-07-09 09:11] LABS: Hematocrit (blood only) 27.1 % (37-47); Mean Corpuscular Hemoglobin 32.5 pg (25-34); Mean Corpuscular Hgb Conc 33.2 g/dL (32-36); Mean Corpuscular Volume 97.8 fL (80-100); RDW Coefficient of Variation 15.8 % (11.5-14.5); RDW Standard Deviation 54.1 fL (36.4-46.3); Red Blood Count 2.77 M/uL (4.2-5.4); White Blood Count 7.73 K/uL (4.8-10.8)
[2021-07-09 09:45] LABS: Albumin Globulin Ratio 0.8 (0.9-2); Albumin Level 2.6 gm/dl (3.4-5.0); BUN Creatinine Ratio 26.1 (10-20); Bilirubin,Total 6.3 mg/dl (0.2-1); Calcium 9.5 mg/dl (8.5-10.1); Creatinine Clr Calc Pharmacy 39.5 ml/min; Est GFR (African American) 34.1 ml/min; Est GFR (Non-African American) 29.4 ml/min; Globulin 3.5 gm/dl (2.5-4.0); Total Protein 6.1 gm/dl (6.4-8.2)
[2021-07-09 10:07] LABS: Mean Platelet Volume 9.3 fL (7.4-10.4); Platelet Count 35 K/uL (130-400)
[2021-07-09 10:09] LABS: Basophils # (auto) 0.01 K/uL (0-0.2); Basophils % (auto) 0.1 %; Eosinophils # (auto) 0.21 K/uL (0-0.5); Eosinophils % (auto) 2.7 %; Immature Granulocytes # (auto) 0.02 K/uL (0.00-0.02); Immature Granulocytes % (auto) 0.3 %; Lymphocytes # (auto) 0.76 K/uL (1.2-3.4); Lymphocytes % (auto) 9.8 %; Monocytes % (auto) 2.6 %; Neutrophils # (auto) 6.53 K/uL (1.4-6.5); Neutrophils % (auto) 84.5 %
--- NOTE | 2021-07-09 11:31 | Nephrology Progress Note ---
Date of Service July 09, 2021 Assessment & Plan (1) Acute kidney injury: Plan: * Cr at baseline from prior admission to [facility] (Cr 1.6). Patient remains non- oliguric * Urine sodium is not consistent with acute HRS (2) Liver cirrhosis: Plan: * s/p 3L paracentesis 07/04/21 * Agree w/ current diuretic regimen of Furosemide 40 mg po BID, Spironolactone 100 mg po BID * Recommend avoiding thiazide diuretics * ESLD. Prognosis guarded * Palliative care consultation: full code, patient expects to return home. PT has recommended SNF due to severe deconditioning (3) Portal hypertension with esophageal varices: Plan: * Remains on propranolol (4) Anemia: Plan: * Recommend blood transfusion to maintain Hgb > 8.0 Admission and Anticipated Discharge Date Admission Date: July 04, 2021 Subjective Ms. Reid was evaluated in her hospital room this morning. She denies fever, dyspnea or abdominal pain. She is anxious to go home for Thanksgiving. PT evaluation yesterday recommended SNF for ongoing strengthening exercises Review of Systems Constitutional: + weakness; no fever Eyes: no problem reported Ear, Nose, Mouth, Throat: no problem reported Respiratory: no dyspnea Cardiovascular: + edema; no chest pain Gastrointestinal: + diarrhea/loose stools; no abdominal pain Genitourinary: no dysuria and no hematuria Integumentary: no rash Physical Exam Constitutional: + ill appearing Eyes: PERRL, conjunctivae normal, anicteric sclerae ENMT: external ear and nose normal, oropharynx normal Neck: trachea midline, no thyromegaly Respiratory: normal respiratory effort, lungs clear to auscultation Cardiovascular: Rate/Rhythm: regular rate and regular rhythm Extremities: + edema (2+ LE pitting edema) Gastrointestinal (Abdomen): Inspection/Auscultation: + abdomen distended and + hypoactive bowel sounds Percussion/Palpation: abdomen soft; abdomen nontender Results & Data ([facility]) Vital Signs (Past 12 Hours) Vital Signs Temp Pulse Pulse Resp BP BP Pulse Ox 07/09/21 11:08 36.3 C L 76 18 91/61 L 94 07/09/21 08:54 98/60 L 07/09/21 08:00 36.5 C 82 18 83/58 L 89/53 L 95 07/09/21 07:00 81 07/09/21 04:00 36.6 C 72 18 109/67 95 07/08/21 23:56 36.7 C 78 20 101/70 96 Laboratory Results Laboratory Tests 07/08/21 07/08/21 06:06 06:06 WBC 7.85 Hgb 8.6 L Hct 25.6 L Plt Count 40 L Sodium 135 L Potassium 4.4 Chloride 100 Carbon Dioxide 29 BUN 44 H Creatinine 1.64 H Glucose 82 PG Care Time/CCT Total # of Minutes Spent Total Time Spent with Patient: Total time spent is greater than 50% in coordination of care (as documented) at patient's floor/unit and/or counseling patient: Coding Level of Care Code 66771 Subseq Hosp Care Lvl 3 Diagnoses Acute kidney injury N17.9 Liver cirrhosis K74.60 Portal hypertension with esophageal varices K76.6; I85.00 Anemia D64.9
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
[2021-07-09 18:54] LABS: Appearance Urine Cloudy (Clear); Bacteria Urine Automated 2+ (Negative); Bilirubin Urine Negative (Negative); Blood Urine 3+ (Negative); Color Urine Dark Yellow; Glucose Urine UA Negative (Negative); Ketones Urine Negative (Negative); Leukocyte Esterase Urine 2+ (Negative); Nitrite Urine Positive (Negative); Protein Urine 1+ (Negative); Specific Gravity Urine 1.011 (1.000-1.030); Urobilinogen Urine Negative (Negative); WBC Urine Automated >30 /hpf (0-5)
[2021-07-09] MEDS: cefTRIAXone SODIUM 2,000 MG in DEXTROSE 5% 50 ML IV SCH (19:10)
[2021-07-10] MEDS: oxyCODONE HCL IR 5 MG TAB (IMMEDIATE RELEASE) PO PRN ×2 (05:34→20:41)
[2021-07-10] MEDS: LEVOTHYROXINE SODIUM 100 MCG TABLET PO SCH (05:34)
[2021-07-10 08:47] LABS: Basophils # (auto) 0.02 K/uL (0-0.2); Basophils % (auto) 0.3 %; Eosinophils # (auto) 0.29 K/uL (0-0.5); Eosinophils % (auto) 4.2 %; Hematocrit (blood only) 26.2 % (37-47); Hemoglobin 8.8 g/dL (12.0-16.0); Immature Granulocytes # (auto) 0.01 K/uL (0.00-0.02); Immature Granulocytes % (auto) 0.1 %; Lymphocytes # (auto) 0.62 K/uL (1.2-3.4); Mean Corpuscular Hgb Conc 33.6 g/dL (32-36); Mean Corpuscular Volume 98.1 fL (80-100); Monocytes # (auto) 0.14 K/uL (0.11-0.59); Neutrophils # (auto) 5.83 K/uL (1.4-6.5); Neutrophils % (auto) 84.4 %; Platelet Count 32 K/uL (130-400); RDW Coefficient of Variation 15.7 % (11.5-14.5); RDW Standard Deviation 54.3 fL (36.4-46.3); Red Blood Count 2.67 M/uL (4.2-5.4); White Blood Count 6.91 K/uL (4.8-10.8)
[2021-07-10] MEDS: PANTOprazole 40 MG TAB PO SCH ×2 (08:56→20:20)
[2021-07-10] MEDS: FOLIC ACID 1 MG TAB PO SCH (08:57)
[2021-07-10] MEDS: PROPRANOLOL HCL 20 MG TAB PO SCH ×2 (08:58→20:21)
[2021-07-10] MEDS: MIDODRINE HCL 10 MG TAB PO SCH ×3 (08:58→17:48)
[2021-07-10] MEDS: GABAPENTIN 300 MG CAP PO SCH ×2 (08:58→20:19)
[2021-07-10] MEDS: rifAXIMin 550 MG TABLET PO SCH ×2 (08:58→20:21)
[2021-07-10] MEDS: LINEZOLID 600 MG TAB PO SCH ×2 (08:59→20:19)
[2021-07-10] MEDS: FLUTICASONE/VILANTEROL 100/25MCG 14 PUFFS/INHALER INH SCH (08:59)
[2021-07-10] MEDS: DOCUSATE SODIUM/SENNA 50/8.6MG TAB PO SCH (08:59)
[2021-07-10] MEDS ORDERED: cefTRIAXone SODIUM 1,000 MG in DEXTROSE 5% 50 ML IV SCH (09:00)
[2021-07-10] MEDS: SPIRONOLACTONE 100 MG TAB PO SCH ×2 (09:00→17:48)
[2021-07-10] MEDS: LACTULOSE SYRUP 20 GM/30 ML UDC PO SCH ×3 (09:00→20:19)
[2021-07-10] MEDS: MICONAZOLE NITRATE POWDER 43 GM EXT SCH ×2 (09:05→20:20)
[2021-07-10 09:17] LABS: Albumin Globulin Ratio 0.6 (0.9-2); Albumin Level 2.3 gm/dl (3.4-5.0); BUN Creatinine Ratio 26.5 (10-20); Calcium 9.4 mg/dl (8.5-10.1); Creatinine Clr Calc Pharmacy 39.4 ml/min; Est GFR (African American) 34.6 ml/min; Est GFR (Non-African American) 29.8 ml/min; Globulin 3.6 gm/dl (2.5-4.0); Potassium 5.2 mmol/L (3.5-5.1); Total Protein 5.9 gm/dl (6.4-8.2)
[2021-07-10] MEDS: POTASSIUM CHLORIDE CRTAB 20 MEQ TABCR PO SCH (09:25)
--- NOTE | 2021-07-10 09:39 | Nephrology Progress Note ---
Date of Service July 10, 2021 Assessment & Plan (1) Acute kidney injury: Plan: * Cr essentially at baseline from prior admission to [facility] (Cr 1.6). Patient remains non-oliguric * No further Nephrology evaluation indicated at this time. Will sign off. Please call if further assistance is needed (2) Liver cirrhosis: Plan: * s/p 3L paracentesis 07/04/21 * Agree w/ current diuretic regimen of Furosemide 40 mg po BID, Spironolactone 100 mg po BID * Recommend avoiding thiazide diuretics * ESLD. Prognosis guarded * Palliative care consultation: full code, patient expects to return home. PT has recommended SNF due to severe deconditioning (3) Portal hypertension with esophageal varices: Plan: * Remains on propranolol (4) Anemia: Plan: * Recommend blood transfusion to maintain Hgb > 8.0 Admission and Anticipated Discharge Date Admission Date: July 04, 2021 Subjective Ms. Reid was evaluated in her hospital room this morning. She denies fever, dyspnea or abdominal pain. She is anxious to go home for Thanksgiving. PT has recommended SNF for ongoing strengthening exercises Review of Systems Constitutional: + weakness; no fever Eyes: no problem reported Ear, Nose, Mouth, Throat: no problem reported Respiratory: no dyspnea Cardiovascular: + edema; no chest pain Gastrointestinal: + diarrhea/loose stools; no abdominal pain Genitourinary: no dysuria and no hematuria Integumentary: no rash Physical Exam Constitutional: + ill appearing Eyes: PERRL, conjunctivae normal, anicteric sclerae ENMT: external ear and nose normal, oropharynx normal Neck: trachea midline, no thyromegaly Respiratory: normal respiratory effort, lungs clear to auscultation Cardiovascular: Rate/Rhythm: regular rate and regular rhythm Extremities: + edema (2+ LE pitting edema) Gastrointestinal (Abdomen): Inspection/Auscultation: + abdomen distended and + hypoactive bowel sounds Percussion/Palpation: abdomen soft; abdomen nontender Results & Data ([facility]) Vital Signs (Past 12 Hours) Vital Signs Temp Pulse Pulse Resp BP Pulse Ox 07/10/21 07:32 36.5 C 84 18 93/62 L 94 07/10/21 04:00 36.4 C L 77 18 107/65 96 07/10/21 00:04 73 07/09/21 23:12 36.4 C L 75 18 103/68 96 Laboratory Results Laboratory Tests 07/09/21 08:49 Sodium 135 L Potassium 5.0 Chloride 98 Carbon Dioxide 27 BUN 47 H Creatinine 1.80 H Glucose 117 H Calcium 9.5 Total Bilirubin 6.3 H PG Care Time/CCT Total # of Minutes Spent Total Time Spent with Patient: Total time spent is greater than 50% in coordination of care (as documented) at patient's floor/unit and/or counseling patient: Coding Level of Care Code 23858 Subseq Hosp Care Lvl 3 Diagnoses Acute kidney injury N17.9 Liver cirrhosis K74.60 Portal hypertension with esophageal varices K76.6; I85.00 Anemia D64.9
[2021-07-10] MEDS: FUROSEMIDE 40 MG TAB PO SCH ×2 (10:03→17:49)
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
[2021-07-10] MEDS: cefTRIAXone SODIUM 2,000 MG in DEXTROSE 5% 50 ML IV SCH (18:22)
[2021-07-11] MEDS: LEVOTHYROXINE SODIUM 100 MCG TABLET PO SCH (05:45)
[2021-07-11] MEDS: PROPRANOLOL HCL 20 MG TAB PO SCH ×2 (08:03→20:35)
[2021-07-11] MEDS: rifAXIMin 550 MG TABLET PO SCH ×2 (08:03→20:37)
[2021-07-11] MEDS: DOCUSATE SODIUM/SENNA 50/8.6MG TAB PO SCH (08:04)
[2021-07-11] MEDS: MIDODRINE HCL 10 MG TAB PO SCH ×3 (08:04→16:49)
[2021-07-11] MEDS: FOLIC ACID 1 MG TAB PO SCH (08:04)
[2021-07-11] MEDS: PANTOprazole 40 MG TAB PO SCH ×2 (08:04→20:37)
[2021-07-11] MEDS: LINEZOLID 600 MG TAB PO SCH ×2 (08:04→20:38)
[2021-07-11] MEDS: SPIRONOLACTONE 100 MG TAB PO SCH (08:05)
[2021-07-11] MEDS: GABAPENTIN 300 MG CAP PO SCH ×2 (08:05→20:37)
[2021-07-11] MEDS: LACTULOSE SYRUP 20 GM/30 ML UDC PO SCH ×3 (08:06→20:41)
[2021-07-11] MEDS: FLUTICASONE/VILANTEROL 100/25MCG 14 PUFFS/INHALER INH SCH (08:06)
[2021-07-11] MEDS: FUROSEMIDE 40 MG TAB PO SCH (08:06)
[2021-07-11] MEDS: MICONAZOLE NITRATE POWDER 43 GM EXT SCH ×2 (08:07→20:22)
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
[2021-07-11 13:24] LABS: Hematocrit (blood only) 26.1 % (37-47); Hemoglobin 8.7 g/dL (12.0-16.0); Mean Corpuscular Hemoglobin 32.1 pg (25-34); Mean Corpuscular Hgb Conc 33.3 g/dL (32-36); Mean Corpuscular Volume 96.3 fL (80-100); RDW Coefficient of Variation 15.5 % (11.5-14.5); RDW Standard Deviation 52.8 fL (36.4-46.3); Red Blood Count 2.71 M/uL (4.2-5.4); White Blood Count 10.76 K/uL (4.8-10.8)
[2021-07-11 13:33] LABS: Mean Platelet Volume 10.9 fL (7.4-10.4); Platelet Count 33 K/uL (130-400)
[2021-07-11 13:53] LABS: Albumin Globulin Ratio 0.6 (0.9-2); Albumin Level 2.5 gm/dl (3.4-5.0); Bilirubin,Total 5.4 mg/dl (0.2-1); Calcium 9.9 mg/dl (8.5-10.1); Creatinine Clr Calc Pharmacy 31.6 ml/min; Est GFR (African American) 27.4 ml/min; Est GFR (Non-African American) 23.6 ml/min; Total Protein 6.5 gm/dl (6.4-8.2)
[2021-07-11 13:56] LABS: Acanthocytes 1+; Basophils # (auto) 0.01 K/uL (0-0.2); Basophils % (auto) 0.1 %; Echinocytes 1+; Eosinophils # (auto) 0.11 K/uL (0-0.5); Immature Granulocytes # (auto) 0.01 K/uL (0.00-0.02); Immature Granulocytes % (auto) 0.1 %; Lymphocytes # (auto) 0.51 K/uL (1.2-3.4); Lymphocytes % (auto) 4.7 %; Monocytes # (auto) 0.17 K/uL (0.11-0.59); Monocytes % (auto) 1.6 %; Neutrophils # (auto) 9.95 K/uL (1.4-6.5); Neutrophils % (auto) 92.5 %
[2021-07-11 15:06] LABS: Potassium 5.5 mmol/L (3.5-5.1)
[2021-07-11] MEDS: PATIROMER CALCIUM SORBITEX 8.4 GM PACK PO SCH (16:49)
[2021-07-11] MEDS: CIPROFLOXACIN / D5W 400 MG/200 ML BAG IV SCH (16:49)
[2021-07-11] MEDS ORDERED: FAMOTIDINE 20 MG in SYRINGE 3 ML IV PRN (21:00)
[2021-07-12] MEDS: CIPROFLOXACIN / D5W 400 MG/200 ML BAG IV SCH ×2 (04:00→16:20)
[2021-07-12] MEDS: LEVOTHYROXINE SODIUM 100 MCG TABLET PO SCH (05:30)
[2021-07-12] MEDS: LACTULOSE SYRUP 20 GM/30 ML UDC PO SCH ×3 (09:26→20:43)
[2021-07-12] MEDS: MIDODRINE HCL 10 MG TAB PO SCH ×3 (09:26→16:21)
[2021-07-12] MEDS: PROPRANOLOL HCL 20 MG TAB PO SCH ×2 (09:26→20:43)
[2021-07-12] MEDS: GABAPENTIN 300 MG CAP PO SCH ×2 (09:26→20:42)
[2021-07-12] MEDS: DOCUSATE SODIUM/SENNA 50/8.6MG TAB PO SCH (09:26)
[2021-07-12] MEDS: PANTOprazole 40 MG TAB PO SCH ×2 (09:26→20:44)
[2021-07-12] MEDS: LINEZOLID 600 MG TAB PO SCH ×2 (09:26→20:45)
[2021-07-12] MEDS: rifAXIMin 550 MG TABLET PO SCH ×2 (09:26→20:42)
[2021-07-12] MEDS: FOLIC ACID 1 MG TAB PO SCH (09:26)
[2021-07-12] MEDS: FLUTICASONE/VILANTEROL 100/25MCG 14 PUFFS/INHALER INH SCH (09:27)
[2021-07-12] MEDS: MICONAZOLE NITRATE POWDER 43 GM EXT SCH ×2 (09:29→20:44)
[2021-07-12 09:57] LABS: Albumin Level 2.4 gm/dl (3.4-5.0); BUN Creatinine Ratio 24.4 (10-20); Calcium 9.7 mg/dl (8.5-10.1); Creatinine Clr Calc Pharmacy 27.2 ml/min; Est GFR (African American) 23.4 ml/min; Est GFR (Non-African American) 20.2 ml/min; Potassium 5.2 mmol/L (3.5-5.1)
[2021-07-12 10:00] LABS: Albumin Globulin Ratio 0.6 (0.9-2); Bilirubin,Total 4.9 mg/dl (0.2-1); Total Protein 6.4 gm/dl (6.4-8.2)
[2021-07-12 10:03] LABS: Acanthocytes 1+; Basophils # (auto) 0.02 K/uL (0-0.2); Basophils % (auto) 0.2 %; Echinocytes 1+; Eosinophils # (auto) 0.13 K/uL (0-0.5); Eosinophils % (auto) 1.3 %; Hematocrit (blood only) 25.7 % (37-47); Hemoglobin 8.5 g/dL (12.0-16.0); Immature Granulocytes # (auto) 0.03 K/uL (0.00-0.02); Immature Granulocytes % (auto) 0.3 %; Lymphocytes # (auto) 0.58 K/uL (1.2-3.4); Lymphocytes % (auto) 5.6 %; Mean Corpuscular Hemoglobin 31.8 pg (25-34); Mean Corpuscular Hgb Conc 33.1 g/dL (32-36); Mean Corpuscular Volume 96.3 fL (80-100); Mean Platelet Volume 11.7 fL (7.4-10.4); Monocytes # (auto) 0.14 K/uL (0.11-0.59); Monocytes % (auto) 1.3 %; Neutrophils # (auto) 9.48 K/uL (1.4-6.5); Neutrophils % (auto) 91.3 %; Platelet Count 36 K/uL (130-400); Platelet Estimate SIGNIFIC DECREASED (Normal); RDW Coefficient of Variation 15.5 % (11.5-14.5); Red Blood Count 2.67 M/uL (4.2-5.4); White Blood Count 10.38 K/uL (4.8-10.8)
[2021-07-12] MEDS: PATIROMER CALCIUM SORBITEX 8.4 GM PACK PO SCH (10:49)
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
[2021-07-12 17:02] LABS: Urine Chloride < 10 mmol/L; Urine Potassium 38.5 mmol/L; Urine Sodium < 5 mmol/L
[2021-07-12] MEDS: oxyCODONE HCL IR 5 MG TAB (IMMEDIATE RELEASE) PO PRN (20:41)
[2021-07-13] MEDS: CIPROFLOXACIN / D5W 400 MG/200 ML BAG IV SCH ×2 (04:34→16:16)
[2021-07-13] MEDS: LEVOTHYROXINE SODIUM 100 MCG TABLET PO SCH (06:02)
[2021-07-13] MEDS: PANTOprazole 40 MG TAB PO SCH ×3 (09:19→21:23)
[2021-07-13] MEDS: DOCUSATE SODIUM/SENNA 50/8.6MG TAB PO SCH (09:19)
[2021-07-13] MEDS: rifAXIMin 550 MG TABLET PO SCH ×3 (09:19→21:23)
[2021-07-13] MEDS: FOLIC ACID 1 MG TAB PO SCH (09:19)
[2021-07-13] MEDS: MIDODRINE HCL 10 MG TAB PO SCH ×4 (09:20→18:33)
[2021-07-13] MEDS: GABAPENTIN 300 MG CAP PO SCH ×3 (09:20→21:22)
[2021-07-13] MEDS: FLUTICASONE/VILANTEROL 100/25MCG 14 PUFFS/INHALER INH SCH (09:21)
[2021-07-13] MEDS: LACTULOSE SYRUP 20 GM/30 ML UDC PO SCH ×3 (09:25→21:23)
[2021-07-13] MEDS: LINEZOLID 600 MG TAB PO SCH ×2 (09:25→13:03)
[2021-07-13] MEDS: MICONAZOLE NITRATE POWDER 43 GM EXT SCH ×2 (09:28→21:22)
[2021-07-13 10:10] LABS: Acanthocytes 2+; Basophils # (auto) 0.01 K/uL (0-0.2); Basophils % (auto) 0.1 %; Eosinophils # (auto) 0.26 K/uL (0-0.5); Eosinophils % (auto) 3.3 %; Hematocrit (blood only) 23.6 % (37-47); Hemoglobin 7.9 g/dL (12.0-16.0); Immature Granulocytes # (auto) 0.02 K/uL (0.00-0.02); Immature Granulocytes % (auto) 0.3 %; Lymphocytes # (auto) 0.54 K/uL (1.2-3.4); Lymphocytes % (auto) 6.9 %; Mean Corpuscular Hgb Conc 33.5 g/dL (32-36); Mean Corpuscular Volume 95.5 fL (80-100); Mean Platelet Volume 10.3 fL (7.4-10.4); Monocytes # (auto) 0.15 K/uL (0.11-0.59); Monocytes % (auto) 1.9 %; Neutrophils # (auto) 6.87 K/uL (1.4-6.5); Neutrophils % (auto) 87.5 %; Platelet Count 31 K/uL (130-400); RDW Coefficient of Variation 15.1 % (11.5-14.5); RDW Standard Deviation 52.1 fL (36.4-46.3); Red Blood Count 2.47 M/uL (4.2-5.4); White Blood Count 7.85 K/uL (4.8-10.8)
[2021-07-13 10:23] LABS: Albumin Level 2.3 gm/dl (3.4-5.0); BUN Creatinine Ratio 23.2 (10-20); Calcium 9.4 mg/dl (8.5-10.1); Creatinine Clr Calc Pharmacy 24.6 ml/min; Est GFR (African American) 19.8 ml/min; Est GFR (Non-African American) 17.1 ml/min; Potassium 5.1 mmol/L (3.5-5.1)
[2021-07-13 10:46] LABS: Albumin Globulin Ratio 0.6 (0.9-2); Bilirubin,Total 3.9 mg/dl (0.2-1); Globulin 3.7 gm/dl (2.5-4.0)
[2021-07-13] MEDS: ALBUMIN 25% 100 mL 25 GM/100 ML VIAL IV SCH ×2 (10:46→18:19)
[2021-07-13] MEDS: OCTREOTIDE ACETATE 100 MCG/ML VIAL SQ SCH ×2 (10:47→18:20)
--- NOTE | 2021-07-13 12:17 | Nephrology Progress Note ---
Date of Service July 13, 2021 Assessment & Plan (1) Acute kidney injury: (2) Ascites: (3) Hepatic encephalopathy: (4) Ascites due to alcoholic cirrhosis: Plan: 61-year-old female with end stage liver disease admitted to the hospital on 07/02/2021 with anasarca. found to have hepatitic encephalopathy and AK I, creatinine was close to 3 with baseline creatinine before around 1.1. Also noted to have hyponatremia over last few months and during this hospitalization serum sodium has been around 132. Eventually renal function improved and creatinine was down to 1.6 however over last few days renal function worsened again and creatinine currently up to 2.8. Albumin has been low. Blood pressure remained relatively low despite being on midodrine 10 t.i.d. she was on Bumex and spironolactone both has been on hold because of worsening renal function. She has been making urine, net negative more than 3 liters since admission. Albumin this morning was 2.3. Urine sodium less than 5 suggestive of some prerenal component. Possibility for hepatorenal syndrome is likely. -- suggest starting on normal saline at 80 mL/hour, monitor serum sodium and electrolyte. -- Continue to hold diuretics, liberalize oral fluid intake -- continue on midodrine, octreotide and albumin -- will give 1 dose of Epogen 11253 units today. -- Monitor intake and output -- overall prognosis remains guarded will follow Admission and Anticipated Discharge Date Admission Date: July 04, 2021 Juliette Amado was seen and examined in her room this morning. She was awake, alert but lethargic and was easily falling asleep during the visit. She complain of feeling thirsty, denied any shortness of breath. Blood pressure has been relat ively low. Had Thompson catheter placed this morning with some urine draining in the Thompson ba. Renal function initially improved however has been worsening again over last few days in creatinine now up to 2.9, sodium staying relatively low at 132. potassium normal. Review of Systems Review of Systems: Detailed review of system was negative except mentioned above. Physical Exam Constitutional: WD/WN, vitals as above no acute distress Eyes: + anicteric sclerae ENMT: Ears: no hearing impairment and no external ear abnormality Nose: nasal mucous membranes not dry Neck: normal visual inspection Respiratory: normal respiratory effort; no respiratory distress Auscultation: lungs clear to auscultation bilaterally Cardiovascular: Rate/Rhythm: regular rate and regular rhythm Heart Sounds: normal S1 and normal S2 Extremities: no edema Skin: normal turgor; no rashes Neurologic: no focal motor deficits and not confused Psychiatric: Orientation: alert and oriented x 3 Results & Data ([facility]) Vital Signs (Past 12 Hours) Vital Signs Temp Pulse Pulse Resp BP BP Pulse Ox 07/13/21 09:00 98 H 07/13/21 08:02 36.5 C 57 L 20 91/60 L 97 07/13/21 03:24 36.3 C L 119 H 16 92/64 L 97 PG Care Time/CCT Total # of Minutes Spent Total Time Spent with Patient: Total time spent is greater than 50% in coordination of care (as documented) at patient's floor/unit and/or counseling patient: Coding Level of Care Code 64856 Subseq Hosp Care Lvl 3 Diagnoses Acute kidney injury N17.9 Ascites R18.8 Hepatic encephalopathy K72.90 Ascites due to alcoholic cirrhosis K70.31
--- NOTE | 2021-07-13 19:27 | Hospitalist Progress Note ---
Date of Service July 13, 2021 Assessment & Plan (1) Acute kidney injury: Plan: rising Cr over the last 2-3 days Urine Na <5 etiology -- pre-renal/ATN vs hepatorenal syndrome vs other BPs are low - held all diuretics and inderal started octreotide 100mcg SC q8h; albumin 25% - 25gm TID IV; and midodrine TID - in the event this is hepatorenal syndrome appreciate nephrology consult and recs BMP in am (2) Coagulopathy: Plan: 2nd to advanced cirrhosis (3) Ascites due to alcoholic cirrhosis: Plan: 07/04 s/p paracentesis with only 3 L removed fluid studies & cell counts not sent thus SBP could not be ruled out consider repeat diagnostic tap to r/o SBP given #1 above hepatorenal syndrome - if present - can be precipitated by SBP (4) COPD (chronic obstructive pulmonary disease): Plan: no exacerbation at this time stable O2 sats in RA (5) Hepatic encephalopathy: Plan: improved with lactulose + rifaximin (6) Hypertension: Plan: holding all diuretics and inderal due to low BPs (7) Hypothyroidism: Plan: TSH wnl continue synthroid (8) Pacemaker: (9) Permanent atrial fibrillation: Plan: not on anticoagulation 2nd to chronically low platelets? rates stable (10) Portal hypertension with esophageal varices: Plan: when able resume her inderal in the future, if tolerated (11) Thrombocytopenia: Plan: 2nd to advanced cirrhosis b12 level wnl and, patient takes daily folate (12) UTI (urinary tract infection): Plan: VRE UTI earlier this month at [facility] has completed 7+ days of zyvox -- will d/c urine cx this admission with pseudomonas + ESBL ecoli - both amenable to cipro - continue cipro, day #3 today (13) Gastric bypass status for obesity: Plan: noted cont PPI bid Plan: she remains confused despite aggressive Rx of hepatic encephalopathy confusion noted on d/c summaries from [place] and [place] alcoholic dementia? thiamine def? UTI? other? empiric thiamine Rx her UTI consider advanced head imaging updated pt's niece by phone who is POA - answered all questions care d/w Dr Smith from nephrology total time today with multiple phone calls, reviewing copious amounts of old records, complex care coordination -- 75 min Admission and Anticipated Discharge Date Admission Date: July 04, 2021 Subjective patient confused during the visit told me she was at [facility] knew the month and year, however when asked specific questions about her medical conditions she could not give me straight answers although she has been hospitalized multiple times this fall ([place] in 05/07, [place] 06/06, 07/07) she could not provide details she was very focused on her fluid restriction denies any etoh use in "years" she did comment that "she needs to see the liver doctor in [place]" she is hoping to be a liver transplant candidate Review of Systems Review of Systems: gen - no fevers or chills CV - no cp pulm - no dyspnea GI - no pain, N/V Physical Exam Physical Exam: gen - confused, looks chronically unwell skin - ecchymoses in various locations neck - no JVD mouth - MM dry heart - RR, irregular, s1 s2 lungs - decreased BS bases abd - marked distension with ascites, BS+, NT ext - 2+ pitting edema, pulses 1+ b/l; left leg is larger than right leg neuro - no asterixis Results & Data Results & Data ([facility]) Vital Signs (Past 12 Hours) Vital Signs Temp Pulse Pulse Resp BP BP Pulse Ox 07/13/21 16:21 98 H 07/13/21 15:01 36.6 C 98 H 16 86/53 L 97 07/13/21 09:00 98 H 07/13/21 08:02 36.5 C 57 L 20 91/60 L 97 Laboratory Results Laboratory Results - last 24 hr 07/13/21 07/13/21 07/13/21 09:32 09:32 09:32 WBC 7.85 RBC 2.47 L Hgb 7.9 L Hct 23.6 L MCV 95.5 MCH 32.0 MCHC 33.5 RDW Std Deviation 52.1 H RDW Coeff of Shirley 15.1 H Plt Count 31 L MPV 10.3 Immature Gran % (Auto) 0.3 Neut % (Auto) 87.5 Lymph % (Auto) 6.9 [place] % (Auto) 1.9 Eos % (Auto) 3.3 Baso % (Auto) 0.1 Neut # (Auto) 6.87 H Lymph # (Auto) 0.54 L [place] # (Auto) 0.15 Eos # (Auto) 0.26 Baso # (Auto) 0.01 Immature Gran # (Auto) 0.02 Acanthocytes (Spur) 2+ Sodium 132 L Potassium 5.1 Chloride 95 L Carbon Dioxide 22 Anion Gap 15.0 H BUN 65 H Creatinine 2.82 H D Est Cr Clr Drug Dosing 24.6 Est GFR ( Amer) 19.8 Est GFR (Non-Af Amer) 17.1 BUN/Creatinine Ratio 23.2 H Glucose 86 Calcium 9.4 Total Bilirubin 3.9 H AST 40 H ALT 16 Alkaline Phosphatase 74 Ammonia 31.4 Total Protein 6.0 L Albumin 2.3 L Globulin 3.7 Albumin/Globulin Ratio 0.6 L Random Cortisol 07/13/21 09:32 WBC RBC Hgb Hct MCV MCH MCHC RDW Std Deviation RDW Coeff of Shirley Plt Count MPV Immature Gran % (Auto) Neut % (Auto) Lymph % (Auto) [place] % (Auto) Eos % (Auto) Baso % (Auto) Neut # (Auto) Lymph # (Auto) [place] # (Auto) Eos # (Auto) Baso # (Auto) Immature Gran # (Auto) Acanthocytes (Spur) Sodium Potassium Chloride Carbon Dioxide Anion Gap BUN Creatinine Est Cr Clr Drug Dosing Est GFR ( Amer) Est GFR (Non-Af Amer) BUN/Creatinine Ratio Glucose Calcium Total Bilirubin AST ALT Alkaline Phosphatase Ammonia Total Protein Albumin Globulin Albumin/Globulin Ratio Random Cortisol Pending PG Care Time/CCT Total # of Minutes Spent Total Time Spent with Patient: Total time spent is greater than 50% in coordination of care (as documented) at patient's floor/unit and/or counseling patient: Prolonged Care Time Prolonged Care Time: Yes 75 Coding Level of Care Code 43765 Subseq Hosp Care Lvl 3 (25 - SIGNIFICANT, SEPARATELY IDENTIFIABLE ) Diagnoses Acute kidney injury N17.9 Coagulopathy D68.9 Ascites due to alcoholic cirrhosis K70.31 COPD (chronic obstructive pulmonary disease) J44.9 Hepatic encephalopathy K72.90 Hypertension I10 Hypothyroidism E03.9 Pacemaker Z95.0 Permanent atrial fibrillation I48.21 Portal hypertension with esophageal varices K76.6; I85.00 Thrombocytopenia D69.6 UTI (urinary tract infection) N39.0 Gastric bypass status for obesity Z98.84 Additional Codes Prolonged Care Time - Prolonged Care Time: Yes ([id number]) Time Spent (min) 75
[2021-07-13] MEDS ORDERED: THIAMINE HCL 500 MG in SODIUM CHLORIDE 0.9% 50 ML IV STA (20:07)
[2021-07-14] MEDS: ALBUMIN 25% 100 mL 25 GM/100 ML VIAL IV SCH ×3 (01:02→18:07)
[2021-07-14] MEDS: OCTREOTIDE ACETATE 100 MCG/ML VIAL SQ SCH ×3 (01:13→10:15)
[2021-07-14] MEDS: LEVOTHYROXINE SODIUM 100 MCG TABLET PO SCH (05:58)
[2021-07-14 09:49] LABS: Prothrombin Time 19.4 Seconds (9.0-12.0)
[2021-07-14 09:52] LABS: Acanthocytes 2+; Basophils # (auto) 0.01 K/uL (0-0.2); Basophils % (auto) 0.2 %; Eosinophils # (auto) 0.18 K/uL (0-0.5); Eosinophils % (auto) 3.1 %; Hematocrit (blood only) 20.4 % (37-47); Hemoglobin 6.8 g/dL (12.0-16.0); Immature Granulocytes # (auto) 0.02 K/uL (0.00-0.02); Immature Granulocytes % (auto) 0.3 %; Lymphocytes # (auto) 0.42 K/uL (1.2-3.4); Lymphocytes % (auto) 7.3 %; Mean Corpuscular Hemoglobin 31.8 pg (25-34); Mean Corpuscular Hgb Conc 33.3 g/dL (32-36); Mean Corpuscular Volume 95.3 fL (80-100); Mean Platelet Volume 11.3 fL (7.4-10.4); Monocytes # (auto) 0.08 K/uL (0.11-0.59); Monocytes % (auto) 1.4 %; Neutrophils # (auto) 5.03 K/uL (1.4-6.5); Neutrophils % (auto) 87.7 %; Platelet Count 21 K/uL (130-400); Platelet Estimate SIGNIFIC DECREASED (Normal); RDW Coefficient of Variation 15.4 % (11.5-14.5); RDW Standard Deviation 52.4 fL (36.4-46.3); Red Blood Count 2.14 M/uL (4.2-5.4); White Blood Count 5.74 K/uL (4.8-10.8)
[2021-07-14 09:54] LABS: Albumin Level 3.1 gm/dl (3.4-5.0); BUN Creatinine Ratio 22.1 (10-20); Calcium 9.5 mg/dl (8.5-10.1); Creatinine Clr Calc Pharmacy 21.3 ml/min; Est GFR (African American) 17.1 ml/min; Est GFR (Non-African American) 14.7 ml/min; Potassium 5.4 mmol/L (3.5-5.1)
[2021-07-14] MEDS: LACTULOSE SYRUP 20 GM/30 ML UDC PO SCH (10:15)
[2021-07-14] MEDS: MICONAZOLE NITRATE POWDER 43 GM EXT SCH ×2 (10:15→20:47)
[2021-07-14] MEDS: GABAPENTIN 300 MG CAP PO SCH (10:15)
[2021-07-14] MEDS: MIDODRINE HCL 10 MG TAB PO SCH ×3 (10:16→16:59)
[2021-07-14] MEDS: FOLIC ACID 1 MG TAB PO SCH (10:16)
[2021-07-14] MEDS: rifAXIMin 550 MG TABLET PO SCH ×2 (10:16→20:46)
[2021-07-14] MEDS: DOCUSATE SODIUM/SENNA 50/8.6MG TAB PO SCH (10:17)
[2021-07-14] MEDS: FLUTICASONE/VILANTEROL 100/25MCG 14 PUFFS/INHALER INH SCH (10:18)
[2021-07-14 10:22] LABS: Albumin Globulin Ratio 0.9 (0.9-2); Bilirubin,Total 4.8 mg/dl (0.2-1); Globulin 3.4 gm/dl (2.5-4.0); Total Protein 6.5 gm/dl (6.4-8.2)
--- NOTE | 2021-07-14 10:47 | Gastroenterology Progress Note ---
Date of Service July 14, 2021 Assessment & Plan (1) Ascites due to alcoholic cirrhosis: (2) Hepatic encephalopathy: (3) Laennecs cirrhosis: (4) Chronic anemia: Plan: Recommend obtaining records from Hospitalization at [facility] for further evaluation of workup Continue Midodrine 10 mg PO TID as per Nephrology Continue Albumin as per Nephrology Continue Xifaxan 550 mg by mouth PO BID Continue Lactulose, and titrate to have 3 BM's per day Just started on Protonix gtt and Octreotide gtt by Hospitalist team, though patient is having no overt GI bleeding As she has previously been on Propranolol in the past, she may have had varices on prior EGD, however, I do not have these records Keep NPO after midnight Reasonable to perform EGD on non-emergent basis tomorrow by her Primary GI team, [facility] Gastroenterology Followup with [facility] transplant center in the future, however, it appears she will not be a good candidate due to Co-morbid medical conditions Admission and Anticipated Discharge Date Admission Date: July 04, 2021 Subjective GI Coverage note for [facility] Gastroenterology: I was asked to see Ingris Reid today secondary to her history of Alcohol induced Cirrhosis, Portal Hypertension, Ascites and questionable history of esophageal varices. She has had a prolonged admission due to worsening of baseline confusion and acute on chronic kidney disease, with no evidence of HRS per Nephrology consultation. She did have an US guided paracentesis performed on 07/04, with 3 L of ascitic fluid removed, however, I do not see ascitic fluid studies were performed. She has had a gradual decline in her H/H over the course of her hospitalization as well, without evidence of overt GI bleeding. Her current H/H is 6.8/20.4, which is down from 9.5/29.1 on admission. She did receive a single transfusion of PRBC on 07/06/2021, however, no reports of overt GI bleeding at that time either. I do not have any record of a prior EGD. At the time I saw the patient she was resting in bed, and was somnolent, but arousable. She was only oriented to person, however, and per discussion with Dr. Cui of the Hospitalist team, this is not abnormal. She denies any abdominal pain or overt GI blood loss at present, but her history is unreliable. Review of Systems Review of Systems: Unobtainable due to cognitive status Physical Exam Constitutional: + ill appearing (chronic); no acute distress Eyes: + anicteric sclerae ENMT: external ear and nose normal, oropharynx normal Neck: normal visual inspection Respiratory: normal respiratory effort, lungs clear to auscultation Cardiovascular: RRR, no murmur, no edema Gastrointestinal (Abdomen): Inspection/Auscultation: + abdomen distended and normal bowel sounds Percussion/Palpation: abdomen soft and + fluid wave; abdomen nontender, no guarding, abdomen not rigid and no hepatosplenomegaly Skin: + pallor Psychiatric: Orientation: oriented to person; + uncooperative Apperance: + disheveled Results & Data Results & Data ([facility]) Vital Signs (Past 12 Hours) Vital Signs Temp Pulse Pulse Resp BP Pulse Ox 07/14/21 07:47 36.4 C L 73 18 95/62 L 94 07/14/21 03:08 36.3 C L 102 H 20 97/61 L 90 07/13/21 23:23 36.6 C 99 H 20 92/60 L 96 07/13/21 23:22 97 H PG Care Time/CCT Total # of Minutes Spent Total Time Spent with Patient: Total time spent is greater than 50% in coordination of care (as documented) at patient's floor/unit and/or counseling patient: Coding Level of Care Code 60471 Subseq Hosp Care Lvl 3 Diagnoses Ascites due to alcoholic cirrhosis K70.31 Hepatic encephalopathy K72.90 Laennecs cirrhosis K70.30 Chronic anemia D64.9
[2021-07-14] MEDS ORDERED: PATIROMER CALCIUM SORBITEX 8.4 GM PACK PO ONE ×2 (11:00→19:00)
[2021-07-14] MEDS ORDERED: SODIUM CHLORIDE 0.9% 250 ML IV PRN ×2 (11:05→19:16)
--- NOTE | 2021-07-14 11:05 | Hospitalist Progress Note ---
Date of Service July 14, 2021 Assessment & Plan (1) Acute blood loss anemia: Plan: presumed 2nd to upper GI bleeding. PPI drip. Octreotide drip (patient with known varices). NPO. Tx 1 unit PRBCs with f/u CBC. may need additional PRBCs. Tx 1 unit of platelets in the setting of severe thrombocytopenia. May need additional platelets. Fibrinogen low - will need cryoprecipitate. If H/H continue to drop despite PRBCs consider FFP. Blood consent was obtained via phone from her niece, Alice Bautista. Nursing witnessed the consent. (2) Upper GI bleeding: Plan: Esophageal varices vs PUD vs gastritis vs AVMs vs combination of factors vs other. See #1 above. PPI + octreotide drips. Appreciate GI consultation; EGD in am, sooner if worsening bleeding and/or anemia. (3) Encephalopathy acute: Plan: Ammonia level continues to remain normal with use of BID rifaximin. Suspect worsening CHARLI and numerous other metabolic factors are contributing to altered MS. Can't rule out UTI contributing. Cont cipro. Can't rule out SBP - adding empiric rocephin (had paracentesis earlier this week, but fluid studies not sent). Can't rule out Wernicke's -- continue thiamine IV Can't exclude an underlying dementia process but less likely (4) Hyperkalemia: Plan: 2nd to CHARLI. Veltassa x 2 doses today. Consider bicarbonate +/- insulin/D50 as temporary measures. Continue volume resuscitation to improve renal perfusion. Serial BMPs. (5) DIC (disseminated intravascular coagulation): Plan: Possible. Coags high, d-dimer very high, FDP high, platelets low, active GI bleeding. I cannot exclude DIC. Transfusional support - PRBCs, platelets, cryo; +/- FFP. At minimum her advanced cirrhosis causes synthetic dysfunction leading to loss of coagulation factor production, fibrinogen, etc. (6) Acute kidney injury: Plan: rising Cr over the last several days. patient had been diuresed earlier in her stay due to anasarca. Urine Na <5 etiology -- pre-renal/ATN vs hepatorenal syndrome vs other BPs have been low - all diuretics and inderal held day #2 of octreotide, albumin 25% - 25gm TID IV; and midodrine TID without response upon transfer to ICU consider pressors to maintain a higher MAP appreciate nephrology consult and recs cont serial BMPs, naidu, etc (7) Coagulopathy: Plan: 2nd to advanced cirrhosis see above (8) Ascites due to alcoholic cirrhosis: Plan: 07/04 s/p paracentesis with only 3 L removed fluid studies & cell counts not sent thus SBP could not be ruled out hepatorenal syndrome - if present - can be precipitated by SBP added rocephin IV to cover empirically for SBP (9) COPD (chronic obstructive pulmonary disease): Plan: no exacerbation at this time stable O2 sats in RA (10) Hepatic encephalopathy: Plan: improved with lactulose + rifaximin ammonia level today wnl holding lactulose due to copious stools (11) Hypertension: Plan: holding all diuretics and inderal due to low BPs (12) Hypothyroidism: Plan: TSH wnl continue synthroid (13) Pacemaker: (14) Permanent atrial fibrillation: Plan: not on anticoagulation rates acceptable in the setting of her multi-organ failure (15) Portal hypertension with esophageal varices: Plan: see above (16) Thrombocytopenia: Plan: SEVERE 2nd to advanced cirrhosis cannot exclude DIC Tx 1 unit platelets; may need more (17) UTI (urinary tract infection): Plan: VRE UTI earlier this month at [facility] had completed 7+ days of zyvox -- this has been discontinued urine cx this admission with pseudomonas + ESBL ecoli - both amenable to cipro - continue cipro, day #4 today (18) Gastric bypass status for obesity: Plan: noted (19) Hyponatremia: Plan: 2nd to Acute renal failure serial BMPs Plan: patient is critically ill with multi-organ dysfunction continues to worsen on all fronts despite maximal medical efforts transferring patient to ICU updated pt's niece twice today by phone who is POA - answered all questions care d/w Dr Smith from nephrology, Dr Hyatt from GI, and Jessee TORO from ICU total care time today - 90 minutes of critical care due to life-threatening multi-organ failure, GI bleeding, hyperkalemia, etc Admission and Anticipated Discharge Date Admission Date: July 04, 2021 Subjective multiple visits to patient's bedside today. multiple phone calls to several providers including Dr Hyatt, Dr Smith, and critical care. during my AM visit the patient was lethargic. she would open eyes briefly but could not carry a full conversation. she was confused, stating she was in the [facility]. she was awake long enough to tell me she did not have pain in her chest or abdomen. staff report melena stools. she has had no appetite over the last 1-2 days. no vomiting or hematemesis. tele stable with a.fib. events of today - changed octreotide SC to octreotide drip for presumed upper GI bleeding. changed po PPI to PPI drip. continued albumin. gave Veltassa x 1 this am for high K, followed by 2nd dose later in the day. PRBCs x 1 given for acute blood loss anemia. platelets x 1 given for severe thrombocytopenia in the setting of active bleeding. despite all of the above her SBP remains 90s and her UOP remains poor. 2nd dose of veltassa given later in the day for refractory hyperkalemia. spoke twice to Alice, pt's niece, who is acting as patient's power of sports attorney. pt's 2 children are estranged from her. Alice understands her aunt's critical illness. Dr Hyatt has placed pt on the scheduled for EGD in the am. late in the day, I checked a d-dimer and FDP in the setting of her low platelets and coagulopathy. dimer and FDP are elevated which may suggest DIC. with worsening multi-organ failure I contacted our ICU, spoke with Jessee TORO, and he accepted patient to the ICU for ongoing care. Review of Systems Review of Systems: Unobtainable due to cognitive status Physical Exam Physical Exam: gen - confused, looks sick/toxic, pallor, no acute distress skin - ecchymoses in various locations neck - no JVD mouth - MM dry heart - RR, irregular, s1 s2, no murmur lungs - decreased BS bases but no rales or wheeze abd - marked distension with ascites, BS+, NT ext - 2+ pitting edema, pulses 1+ b/l; left leg is larger than right leg - no change neuro - no asterixis psych - a/o x 1 only (person) Results & Data Results & Data ([facility]) Vital Signs (Past 12 Hours) Vital Signs Temp Pulse Pulse Resp BP Pulse Ox 07/14/21 07:47 36.4 C L 73 18 95/62 L 94 07/14/21 03:08 36.3 C L 102 H 20 97/61 L 90 07/13/21 23:23 36.6 C 99 H 20 92/60 L 96 07/13/21 23:22 97 H Laboratory Results Laboratory Results - last 24 hr 07/14/21 07/14/21 07/14/21 08:56 08:56 08:56 WBC 5.74 RBC 2.14 L Hgb 6.8 L* Hct 20.4 L* MCV 95.3 MCH 31.8 MCHC 33.3 RDW Std Deviation 52.4 H RDW Coeff of Shirley 15.4 H Plt Count 21 L* MPV 11.3 H Immature Gran % (Auto) 0.3 Neut % (Auto) 87.7 Lymph % (Auto) 7.3 [place] % (Auto) 1.4 Eos % (Auto) 3.1 Baso % (Auto) 0.2 Neut # (Auto) 5.03 Lymph # (Auto) 0.42 L [place] # (Auto) 0.08 L Eos # (Auto) 0.18 Baso # (Auto) 0.01 Immature Gran # (Auto) 0.02 Platelet Estimate SIGNIFIC DECREASED Acanthocytes (Spur) 2+ PT 19.4 H INR 2.0 H Fibrinogen Fibrin Degrad Products D-Dimer Sodium 130 L Potassium 5.4 H Chloride 93 L Carbon Dioxide 22 Anion Gap 15.0 H BUN 71 H Creatinine 3.19 H D Est Cr Clr Drug Dosing 21.3 Est GFR ( Amer) 17.1 Est GFR (Non-Af Amer) 14.7 BUN/Creatinine Ratio 22.1 H Glucose 93 Calcium 9.5 Total Bilirubin 4.8 H AST 29 ALT 15 Alkaline Phosphatase 64 Ammonia Total Protein 6.5 Albumin 3.1 L Globulin 3.4 Albumin/Globulin Ratio 0.9 Blood Type Antibody Screen Crossmatch 07/14/21 07/14/21 07/14/21 11:27 17:42 17:42 WBC 5.94 RBC 2.36 L Hgb 7.5 L Hct 22.2 L MCV 94.1 MCH 31.8 MCHC 33.8 RDW Std Deviation 50.7 H RDW Coeff of Shirley 15.3 H Plt Count 25 L* MPV Immature Gran % (Auto) Neut % (Auto) Lymph % (Auto) [place] % (Auto) Eos % (Auto) Baso % (Auto) Neut # (Auto) Lymph # (Auto) [place] # (Auto) Eos # (Auto) Baso # (Auto) Immature Gran # (Auto) Platelet Estimate SIGNIFIC DECREASED Acanthocytes (Spur) PT INR Fibrinogen Fibrin Degrad Products >40 H D-Dimer Sodium Potassium Chloride Carbon Dioxide Anion Gap BUN Creatinine Est Cr Clr Drug Dosing Est GFR ( Amer) Est GFR (Non-Af Amer) BUN/Creatinine Ratio Glucose Calcium Total Bilirubin AST ALT Alkaline Phosphatase Ammonia Total Protein Albumin Globulin Albumin/Globulin Ratio Blood Type O Positive Antibody Screen NEGATIVE Crossmatch See Detail 07/14/21 07/14/21 07/14/21 17:42 17:42 17:42 WBC RBC Hgb Hct MCV MCH MCHC RDW Std Deviation RDW Coeff of Shirley Plt Count MPV Immature Gran % (Auto) Neut % (Auto) Lymph % (Auto) [place] % (Auto) Eos % (Auto) Baso % (Auto) Neut # (Auto) Lymph # (Auto) [place] # (Auto) Eos # (Auto) Baso # (Auto) Immature Gran # (Auto) Platelet Estimate Acanthocytes (Spur) PT INR Fibrinogen Fibrin Degrad Products D-Dimer 63053 H* Sodium 130 L Potassium 5.5 H Chloride 92 L Carbon Dioxide 22 Anion Gap 16.0 H BUN 74 H Creatinine 3.13 H Est Cr Clr Drug Dosing 21.7 Est GFR ( Amer) 17.5 Est GFR (Non-Af Amer) 15.1 BUN/Creatinine Ratio 23.7 H Glucose 82 Calcium 9.6 Total Bilirubin AST ALT Alkaline Phosphatase Ammonia 16.3 Total Protein Albumin Globulin Albumin/Globulin Ratio Blood Type Antibody Screen Crossmatch 07/14/21 19:40 WBC RBC Hgb Hct MCV MCH MCHC RDW Std Deviation RDW Coeff of [place] Plt Count MPV Immature Gran % (Auto) Neut % (Auto) Lymph % (Auto) [place] % (Auto) Eos % (Auto) Baso % (Auto) Neut # (Auto) Lymph # (Auto) [place] # (Auto) Eos # (Auto) Baso # (Auto) Immature Gran # (Auto) Platelet Estimate Acanthocytes (Spur) PT INR Fibrinogen 94 L* Fibrin Degrad Products D-Dimer Sodium Potassium Chloride Carbon Dioxide Anion Gap BUN Creatinine Est Cr Clr Drug Dosing Est GFR ( Amer) Est GFR (Non-Af Amer) BUN/Creatinine Ratio Glucose Calcium Total Bilirubin AST ALT Alkaline Phosphatase Ammonia Total Protein Albumin Globulin Albumin/Globulin Ratio Blood Type Antibody Screen Crossmatch PG Care Time/CCT Total # of Minutes Spent Total Time Spent with Patient: Total time spent is greater than 50% in coordination of care (as documented) at patient's floor/unit and/or counseling patient: Critical Care Time: Yes 90 minutes Coding Level of Care Code None Diagnoses Acute kidney injury N17.9 Coagulopathy D68.9 Ascites due to alcoholic cirrhosis K70.31 COPD (chronic obstructive pulmonary disease) J44.9 Hepatic encephalopathy K72.90 Hypertension I10 Hypothyroidism E03.9 Pacemaker Z95.0 Permanent atrial fibrillation I48.21 Portal hypertension with esophageal varices K76.6; I85.00 Thrombocytopenia D69.6 UTI (urinary tract infection) N39.0 Gastric bypass status for obesity Z98.84 Acute blood loss anemia D62 Upper GI bleeding K92.2 Encephalopathy acute G93.40 DIC (disseminated intravascular coagulation) D65 Hyponatremia E87.1 Hyperkalemia E87.5 Additional Codes Critical Care Time - Critical Care Time: Yes ([id number]) Time Spent (min) 90 Comment critical care time
[2021-07-14] MEDS ORDERED: PHYTONADIONE 5 MG in SODIUM CHLORIDE 0.9% 50 ML IV ONE (11:15)
[2021-07-14] MEDS: PANTOprazole 40 MG in DEXTROSE 5% 100 ML IV SCH ×3 (11:26→20:47)
--- NOTE | 2021-07-14 11:32 | Nephrology Progress Note ---
Date of Service July 14, 2021 Assessment & Plan (1) Acute kidney injury: (2) Ascites: (3) Hepatic encephalopathy: (4) Ascites due to alcoholic cirrhosis: Plan: 61-year-old female with end stage liver disease admitted to the hospital on 07/02/2021 with anasarca. found to have hepatitic encephalopathy and AK I, creatinine was close to 3 with baseline creatinine before around 1.1. Also noted to have hyponatremia over last few months and during this hospitalization serum sodium has been around 132. Eventually renal function improved and creatinine was down to 1.6 however over last few days renal function worsened again and creatinine currently up to 2.8. Albumin has been low. Rapid progressive worsening of renal function with hyperkalemia and drop in hemoglobin to 6.8. Blood pressure remained low and continues to be lethargic and less responsive. -- Agree with giving a dose of Veltassa insulin and D50 and check potassium this afternoon. S PO intake remains poor, suggest starting on normal saline at 80 mL/hour. -- Continue to hold diuretics, liberalize oral fluid intake -- continue on midodrine, octreotide and albumin -- Monitor intake and output -- overall prognosis remains guarded will follow Admission and Anticipated Discharge Date Admission Date: July 04, 2021 Juliette Amado was seen and examined in her room this morning. She was responding to her name and answering q but lethargic and was easily falling asleep and barely opening her eyes during the visit. Renal function decline rapidly over last 24 hour, creatinine above 3 with potassium 5.5. Urine output relatively low. Hemoglobin dropped acutely from 7.9-6.8 today. lying flat in bed without significant respiratory distress. Blood pressure remains low with systolic around 90s. Review of Systems Review of Systems: Detailed review of system was not possible because of lethargy.. Physical Exam Constitutional: WD/WN, vitals as above + ill appearing and + lethargic; no acute distress Neck: normal visual inspection Respiratory: normal respiratory effort; no respiratory distress Auscultation: + diminished lung sounds Cardiovascular: Rate/Rhythm: regular rate and regular rhythm Heart Sounds: normal S1 and normal S2 Extremities: no edema Gastrointestinal (Abdomen): Inspection/Auscultation: + abdomen distended and normal bowel sounds Skin: normal turgor; no rashes Neurologic: All detailed neuro exam was not possible due to mental health condition. Psychiatric: Orientation: alert Results & Data ([facility]) Vital Signs (Past 12 Hours) Vital Signs Temp Pulse Resp BP Pulse Ox 07/14/21 07:47 36.4 C L 73 18 95/62 L 94 07/14/21 03:08 36.3 C L 102 H 20 97/61 L 90 PG Care Time/CCT Total # of Minutes Spent Total Time Spent with Patient: Total time spent is greater than 50% in coordination of care (as documented) at patient's floor/unit and/or counseling patient: Coding Level of Care Code 65871 Subseq Hosp Care Lvl 3 Diagnoses Acute kidney injury N17.9 Ascites R18.8 Hepatic encephalopathy K72.90 Ascites due to alcoholic cirrhosis K70.31
[2021-07-14] MEDS: PANTOprazole 40 MG TAB PO SCH (11:57)
[2021-07-14] MEDS: THIAMINE HCL 200 MG in SODIUM CHLORIDE 0.9% 50 ML IV SCH ×2 (12:32→13:24)
[2021-07-14] MEDS: OCTREOTIDE ACETATE 500 MCG in 0.9 % SODIUM CHLORIDE 100 ML IV SCH ×2 (14:33→23:35)
[2021-07-14] MEDS: CIPROFLOXACIN / D5W 400 MG/200 ML BAG IV SCH (16:58)
[2021-07-14 18:14] LABS: BUN Creatinine Ratio 23.7 (10-20); Calcium 9.6 mg/dl (8.5-10.1); Creatinine Clr Calc Pharmacy 21.7 ml/min; Est GFR (African American) 17.5 ml/min; Est GFR (Non-African American) 15.1 ml/min; Potassium 5.5 mmol/L (3.5-5.1)
[2021-07-14 19:17] LABS: D Dimer 13920 ug/L FEU (0-500)
[2021-07-14 19:20] LABS: Hematocrit (blood only) 22.2 % (37-47); Hemoglobin 7.5 g/dL (12.0-16.0); Mean Corpuscular Hemoglobin 31.8 pg (25-34); Mean Corpuscular Hgb Conc 33.8 g/dL (32-36); Mean Corpuscular Volume 94.1 fL (80-100); Platelet Count 25 K/uL (130-400); Platelet Estimate SIGNIFIC DECREASED (Normal); RDW Coefficient of Variation 15.3 % (11.5-14.5); RDW Standard Deviation 50.7 fL (36.4-46.3); Red Blood Count 2.36 M/uL (4.2-5.4); White Blood Count 5.94 K/uL (4.8-10.8)
[2021-07-14] MEDS ORDERED: cefTRIAXone SODIUM 2,000 MG in DEXTROSE 5% 50 ML IV SCH (20:00)
[2021-07-14 20:18] LABS: Fibrinogen 94 mg/dl (184-400)
--- NOTE | 2021-07-14 20:21 | Critical Care Consultation ---
Date of Consultation July 14, 2021 Assessment & Plan (1) Admitted to intensive care unit: Reason Critically Ill: 61-year-old female with acute blood loss anemia in the setting of likely upper GI bleeding complicated by ongoing thrombocytopenia with concerns for new onset DIC, hyperkalemia, hyponatremia, CHARLI with concerns for hepatorenal syndrome. NEURO - * CAM ICU: NEGATIVE: * Encephalopathy: * Uncertain of patient's baseline. * She is aware that she is in the hospital, but initially feels as though she is at [place]. She is aware of the year and general season, but unaware of month or specific date. * No focal neurological deficits noted. CARDIAC/VASCULAR - * Hypertension, A. fib: * Currently holding antihypertensive medications secondary to labile blood pressures. * Permanent A. fib with pacer in place. * Consider addition of Vasopressin if her pressures continue to be soft as this might have the added benefit of improving splenorenal shunting and subsequent improvement in renal circulation. * Monitor on telemetry. RESPIRATORY - * COPD: * w/o s/s at this time. * Saturating well on room air. GI/NUTRITION - * Likely UGIB: * Patient w/ link colored stools. * Concerning in the patient w/ known h/o esophageal varices, thrombocytopenia, and possible DIC. * Already started on Octreotide/Protonix gtts. * Received 1 U PRBCs currently w/ order to receive 1 U plts. * Will add Cryo pending fibrinogen levels. * Will likely add FFP given INR elevation as well. * GI to scope tomorrow AM. * Given concerns for UGIB in the chronic renal failure patient w/ thrombocytopenia requiring large amounts of blood products (specifically platelets), will reach out to [facility] for transfer to higher level of care for evaluation by hepatology/transplant (which she is scheduled for in July) as well as added utility of advanced blood bank support. * Cirrhosis w/ Ascites: * Initially tapped on 07/04 for a total of 3L. No samples sent at that time. * Covered w/ Rocephin for SBP. RENAL/LYTES - * CHARLI vs. HRS: * Patient had rising Cr throughout hospitalization, unfortunately. She had been receiving Lasix and Spironolactone which have since been held. Despite this, the patient has ongoing rise in Cr w/ decreased urine output raising the concern for HRS. Regardless, patient currently on octreotide and BPs have remained stable w/ appropriate MAPs. Could consider the use of Vasopressin, but ultimately, the patient likely warrants transplant evaluation regardless. * Nephrology continues to manage. - * Thompson in place - Strict I&Os. ENDO - * No h/o DM * BSGs per unit protocol. ISS --> gtt per unit policy. * Hypothyroidism: * Continue home dosing of Levothyroxine. May consider transition to IV pending EGD findings. HEME - * Acute blood loss anemia: * Likely 2/2 UGIB. * Concerning in the patient w/ worsening thrombocytopenia and concerns for DIC. * Received 1 U PRBCs. * To receive 1 U platelets. * Will add Cryo as Fibrinogen low. * Trend H&H/Plt - Transfuse as needed. * Will likely add FFP as well. * Will discuss with [facility] for transfer given increasing need for blood bank products and limited supply (specifically platelets). * Did reach out to [facility] at [phone] and provide information to triage nurse. Did not receive return call so called back at [phone]. Was informed that their volume is significantly high and that the patient's case would be reviewed at 0800 by their panel of providers and we would be contacted back if they are to accept the patient in transfer. ID - * ESBL UTI: * Sensitive to Cipro. * SBP coverage: * Continue Rocephin. LINES/IV ACCESS - * PIVs x3 * Thompson DVT PROPHYLAXIS - * Hold on chemoprophylaxis in the setting of likely UGIB. * SCDs I have personally spent 65 minutes of critical care time in the direct management of this patient. This is a life/limb threatening event. This includes time spent evaluating patient, direct bedside care, chart review, placing orders, interpretation of diagnostic studies, discussion with consultants, patient, and family members, as well as other required patient management activities. This time is exclusive of all separately billable procedures, and teaching time and separate from and in addition to any other critical care service time. Thank you for allowing us to participate in the care of this patient. Please refer to my attending physician's documentation for any further recommendations. (2) Laennecs cirrhosis: (3) Upper GI bleeding: (4) DIC (disseminated intravascular coagulation): (5) Acute blood loss anemia: (6) UTI (urinary tract infection): (7) Encephalopathy: (8) Ascites: (9) Anasarca: (10) Hypoalbuminemia: (11) Thrombocytopenia: History of Present Illness Attending Physician: Beto Cui History of Present Illness Patient is a 61-year-old female with a significant past medical history of permanent A. fib with AICD placement, hypertension, COPD, anxiety, depression, alcoholic cirrhosis with last drink approximately 1 year ago, with recent hospital admissions at [facility] for hepatic encephalopathy and ongoing liver failure issues. The patient is scheduled in late July at [facility] in [place] for assessment for transplantation. Patient was admitted to this institution on 07/03 in the setting of anasarca with significant ascites, and CHF. Throughout the patient's hospitalization, she has undergone paracentesis on 07/04 with removal of 3 L fluid. She had been receiving Lasix and spironolactone, however this was discontinued as the patient's creatinine began to climb and urine output decreased. She has been seen by nephrology recently and it was recommended that we refrain from ongoing diuresis at this point. Additionally, the patient is with a history of esophageal varices and was noted to have melanotic stools over the last 48 hours. She did require transfusion of 1 unit PRBC. She is currently receiving her second unit PRBC as well as unit of platelets in the setting of thrombocytopenia. She was evaluated by GI today with intent for planned scope to be performed tomorrow morning. Unfortunately, given the increasing need for blood products, etc., patient was transferred to the ICU for ongoing management. Upon evaluation in the ICU, the patient is awake and alert. She does appear pleasantly confused about some questions. She thinks that she is in the [facility]. She is aware of the year and month. She knows her birthdate. She knows that she has terrible liver disease. Otherwise, HPI is limited. Despite this, the patient does not offer any complaints at this time. Allergies Allergy/AdvReac Type Severity Reaction Status Date / Time levetiracetam Allergy Intermediate rash/hives Verified 07/02/21 21:28 Home Medications Medication Instructions Recorded Confirmed Type budesonide-formoterol HFA 160 2 puff INHALATION BID 04/22/18 07/02/21 History mcg-4.5 mcg/actuation aerosol inhaler (Symbicort) folic acid 1 mg tablet 1 mg PO DAILY 04/22/18 07/02/21 History furosemide 80 mg tablet (Lasix) 80 mg PO BID 04/22/18 07/02/21 History gabapentin 400 mg capsule 400 mg PO QID 04/22/18 07/02/21 History levothyroxine 50 mcg capsule 50 mcg PO QAM 04/22/18 07/02/21 History omeprazole magnesium 20 mg 20 mg PO DAILY 04/22/18 07/02/21 History tablet,delayed release (Prilosec OTC) propranolol 20 mg tablet 20 mg PO BID 04/22/18 07/02/21 History rifaximin 550 mg tablet (Xifaxan) 550 mg PO BID 04/22/18 07/02/21 History spironolactone 50 mg tablet 50 mg PO BID 04/22/18 07/02/21 History (Aldactone) vitamin B12 500 mcg-folic acid 400 1 tab PO DAILY 04/22/18 07/02/21 History mcg tablet Patient History Medical History Anxiety disorder Ascites ASD (atrial septal defect) COPD (chronic obstructive pulmonary disease) Encephalopathy Fibromyalgia Hepatic insufficiency Hypertension Liver cirrhosis Osteoarthritis Pacemaker IRREGULAR HEART BEAT 1999 Palliative care encounter Surgical History Gastric bypass status for obesity H/O shoulder surgery LEFT SHOULDER FX REPAIR (HARDWARE PRESENT) History of cataract surgery RT Hx of cholecystectomy Social History Smoking Status: Never smoker Second Hand Exposure: No; Hx Alcohol Use: Yes Alcohol type: wine and hard liquor Hx Substance Use: No Preferred Language: Bulgarian Communication Ability: Effective Line Assembler Required: No Beliefs That Will Affect Care: None marital status: Unknown Current Living Situation: Alone Feels Safe at Home: Yes Assistive Devices: None Review of Systems Review of Systems: A complete 10 point review of systems was reviewed with the patient with pertinent positives and negatives as per history of present illness. All else were negative. Physical Exam Physical Exam: VITAL SIGNS - Vital signs and nursing notes were reviewed. GENERAL - []-year-old [] appearing [] stated age who is in [] no acute distress. Communicates well with provider and answers questions appropriately. HEAD - NC/AT. EYES - PERRL with EOMI bilaterally. [] Sclera anicteric. Palpebral conjunctiva pink and moist with no injection noted. EARS - No deformities of external structures noted on gross examination bilaterally. No pain elicited with palpation of the tragus bilaterally. External auditory canals without discharge or otorrhea. Tympanic membranes pearly jarquin without retraction or bulging. No fluid or purulent material visualized behind the TM. Handle of malleus, umbo, cone of light, pars tensa/flaccid all easily visualized. NOSE - Midline and without cyanosis. No epistaxis or purulent drainage noted. Septum midline without deviation or septal hematoma noted. MOUTH/OROPHARYNX - Without perioral cyanosis. Buccal mucosa pink and moist and without leukoplakia. Tongue midline with equal elevation of palate bilaterally. No tonsillar hypertrophy, erythema, or exudates noted. [] dentition noted. NECK - Neck with FROM. Supple to palpation. No nuchal rigidity. LUNGS - Chest wall symmetric without accessory muscle use, intercostals retractions, or central cyanosis. Normal vesicular breath sounds CTA B/L. No wheezes, rales, or rhonchi appreciated. CARDIAC - RRR with S1/S2. No murmur, rubs, or gallops appreciated. ABDOMEN - Abdominal contour [] without pulsations or visible masses. [] Negative Shan's or Nava Bianchi's Signs. BS [] normoactive all four quadrants. [] tenderness to palpation appreciated []. [] guarding. [] Rebound Tenderness. [] Vovsing's. [] Tidwell's. [] palpable masses, hepatosplenomegaly, or ascites noted. EXTREMITIES - [] No clubbing or peripheral cyanosis. [] No pretibial edema present. +3/5 radial and dorsalis pedis pulses palpated throughout. +[]5/5 strength noted in UE/LE bilaterally. NEUROLOGIC - Cranial nerves II through XII grossly intact. Sensory intact to light touch throughout. PSYCH - A&Ox3 and cooperates fully with examiner. Pt is very pleasant and interacts well with examiner. Results & Data Results & Data ([facility]) Vital Signs (Past 12 Hours) Vital Signs Temp Pulse Pulse Resp BP BP Pulse Ox 07/14/21 19:36 36.4 C L 107 H 20 103/68 95 07/14/21 16:56 36.4 C L 121 H 18 90/54 L 07/14/21 16:00 36.4 C L 121 H 18 90/54 L 07/14/21 15:30 36.6 C 79 18 104/66 07/14/21 15:00 36.3 C L 93 H 18 101/63 07/14/21 14:00 36.5 C 108 H 108 H 18 98/65 L 98/65 L 07/14/21 13:30 36.6 C 79 18 104/66 07/14/21 13:15 36.6 C 84 84 18 97/60 L 97/60 L 07/14/21 13:02 36.5 C 84 18 112/70 07/14/21 13:00 36.5 C 108 H 108 H 18 112/70 114/70 97 Coding Level of Care Code Critical Care 1st 30-74 mins Diagnoses Admitted to intensive care unit Z78.9 Laennecs cirrhosis K70.30 Upper GI bleeding K92.2 DIC (disseminated intravascular coagulation) D65 Acute blood loss anemia D62 UTI (urinary tract infection) N39.0 Encephalopathy G93.40 Ascites R18.8 Anasarca R60.1 Hypoalbuminemia E88.09 Thrombocytopenia D69.6 Time Spent (min) 65
[2021-07-15 01:10] LABS: BUN Creatinine Ratio 23.7 (10-20); Calcium 9.8 mg/dl (8.5-10.1); Creatinine Clr Calc Pharmacy 21.5 ml/min; Est GFR (African American) 17.2 ml/min; Est GFR (Non-African American) 14.9 ml/min; Potassium 5.6 mmol/L (3.5-5.1)
[2021-07-15] MEDS: PANTOprazole 40 MG in DEXTROSE 5% 100 ML IV SCH ×5 (01:10→20:36)
[2021-07-15] MEDS: ALBUMIN 25% 100 mL 25 GM/100 ML VIAL IV SCH ×3 (01:11→16:48)
[2021-07-15 01:14] LABS: Mean Corpuscular Hgb Conc 32.9 g/dL (32-36); Platelet Count 27 K/uL (130-400)
[2021-07-15 01:15] LABS: Acanthocytes 1+; Basophils # (auto) 0.01 K/uL (0-0.2); Basophils % (auto) 0.2 %; Echinocytes 1+; Eosinophils # (auto) 0.18 K/uL (0-0.5); Eosinophils % (auto) 3.6 %; Hemoglobin 6.9 g/dL (12.0-16.0); Lymphocytes # (auto) 0.39 K/uL (1.2-3.4); Lymphocytes % (auto) 7.8 %; Mean Corpuscular Hemoglobin 31.1 pg (25-34); Mean Corpuscular Volume 94.6 fL (80-100); Monocytes # (auto) 0.08 K/uL (0.11-0.59); Monocytes % (auto) 1.6 %; Neutrophils # (auto) 4.34 K/uL (1.4-6.5); Neutrophils % (auto) 86.8 %; Platelet Estimate SIGNIFIC DECREASED (Normal); RDW Coefficient of Variation 15.4 % (11.5-14.5); RDW Standard Deviation 51.2 fL (36.4-46.3); Red Blood Count 2.22 M/uL (4.2-5.4)
[2021-07-15] MEDS ORDERED: SODIUM CHLORIDE 0.9% 250 ML IV PRN (01:20)
[2021-07-15 04:55] LABS: Fibrinogen 116 mg/dl (184-400)
[2021-07-15 04:57] LABS: Prothrombin Time 18.8 Seconds (9.0-12.0)
[2021-07-15 05:18] LABS: Albumin Level 3.6 gm/dl (3.4-5.0); BUN Creatinine Ratio 23.1 (10-20); Bilirubin Direct 2.5 mg/dl (0-0.2); Bilirubin,Total 6.6 mg/dl (0.2-1); Calcium 9.8 mg/dl (8.5-10.1); Creatinine Clr Calc Pharmacy 22.3 ml/min; Est GFR (African American) 16.8 ml/min; Est GFR (Non-African American) 14.5 ml/min; Magnesium 1.9 mg/dl (1.8-2.4); Phosphorus 5.4 mg/dl (2.5-4.9); Potassium 5.3 mmol/L (3.5-5.1); Total Protein 6.5 gm/dl (6.4-8.2)
[2021-07-15 05:51] LABS: Hematocrit (blood only) 23.5 % (37-47); Hemoglobin 7.9 g/dL (12.0-16.0); Mean Corpuscular Hemoglobin 31.7 pg (25-34); Mean Corpuscular Hgb Conc 33.6 g/dL (32-36); Mean Corpuscular Volume 94.4 fL (80-100); Mean Platelet Volume 10.9 fL (7.4-10.4); Platelet Count 33 K/uL (130-400); RDW Coefficient of Variation 15.2 % (11.5-14.5); RDW Standard Deviation 51.1 fL (36.4-46.3); Red Blood Count 2.49 M/uL (4.2-5.4); White Blood Count 5.43 K/uL (4.8-10.8)
[2021-07-15 05:52] LABS: Acanthocytes 1+; Basophils # (auto) 0.01 K/uL (0-0.2); Basophils % (auto) 0.2 %; Eosinophils # (auto) 0.21 K/uL (0-0.5); Eosinophils % (auto) 3.9 %; Lymphocytes # (auto) 0.35 K/uL (1.2-3.4); Lymphocytes % (auto) 6.4 %; Monocytes % (auto) 1.8 %; Neutrophils # (auto) 4.76 K/uL (1.4-6.5); Neutrophils % (auto) 87.7 %
--- NOTE | 2021-07-15 06:46 | Ultrasound Report ---
LEFT LOWER EXTREMITY VENOUS DOPPLER CLINICAL HISTORY: Left leg swelling. Evaluate for deep venous thrombus. COMPARISON STUDY: No previous studies for comparison. TECHNIQUE: Sonography of the deep venous system of the left lower extremity was performed. Compressi on and augmentation were evaluated. FINDINGS: The left common femoral, superficial femoral and popliteal veins were compressible. Augmen tation was normal. Flow was shown within the deep calf vessels. Note is made of left lower extremity subcutaneous edema. IMPRESSION: No evidence of deep venous thrombus within the left lower extremity. ACT 112: Negative or not required by law. Electronically signed by: Manas Montenegro M.D. 07/15/2021 6:45 AM
--- NOTE | 2021-07-15 07:23 | Ultrasound Report ---
US duplex portal hepatic veins CLINICAL HISTORY: GI bleed. Assess for portal vein thrombosis. COMPARISON STUDY: Abdomen and pelvis CT 07/03/2021. FINDINGS: Nodular contour to the liver consistent with cirrhosis. There is a small amount of ascites identified. The main portal vein is not clearly identified. However, there is increased vascularity a t the hepatic hilum concerning for cavernous transformation in the setting of chronic portal vein thr ombosis. There is reversal of flow of the left portal vein. Hepatic veins appear patent. The hepatic arteries are also patent. The splenic vein near the splenic hilum is patent. The residual splenic vei n is obscured by overlying bowel gas. IMPRESSION: 1. The main portal vein is not clearly identified. However, there is increased vascularity at the hep atic hilum concerning for cavernous transformation. There is reversal flow within the left portal vei n. 2. The hepatic veins appear patent. 3. Cirrhotic liver with a small amount of ascites. ACT 112: Negative or not required by law. Electronically signed by: Tevin Kim M.D. 07/15/2021 7:21 AM
[2021-07-15] MEDS ORDERED: PHYTONADIONE 10 MG in SODIUM CHLORIDE 0.9% 50 ML IV ONE (07:24)
--- NOTE | 2021-07-15 07:31 | Critical Care Progress Note ---
Date of Service July 15, 2021 Assessment & Plan Admission and Anticipated Discharge Date Admission Date: July 04, 2021 Results & Data Results & Data ([facility]) Vital Signs (Past 12 Hours) Vital Signs Temp Pulse Pulse Resp BP BP Pulse Ox 07/15/21 06:18 100/58 L 07/15/21 06:00 35.8 C L 76 17 81/60 L 95 07/15/21 05:30 35.8 C L 79 25 H 96 07/15/21 05:00 35.8 C L 77 18 93/50 L 93 07/15/21 04:30 35.8 C L 85 17 93 07/15/21 04:00 35.8 C L 96 H 22 103/66 90 07/15/21 03:54 35.8 C L 90 19 93/55 L 91 07/15/21 03:30 35.8 C L 73 25 H 93/61 L 90 07/15/21 03:29 35.8 C L 90 19 92/65 L 92 07/15/21 03:14 35.8 C L 86 19 93/61 L 93 07/15/21 02:54 35.8 C L 82 19 92/61 L 94 07/15/21 02:48 35.8 C L 82 19 92/61 L 94 07/15/21 02:30 35.8 C L 77 18 88/56 L 94 07/15/21 02:00 35.8 C L 88 17 101/66 96 07/15/21 01:45 35.8 C L 86 19 88/58 L 94 07/15/21 01:30 35.8 C L 94 H 27 H 83/55 L 94 07/15/21 01:25 35.8 C L 85 19 91/51 L 95 07/15/21 01:00 35.8 C L 102 H 19 91/51 L 95 07/15/21 00:30 35.8 C L 88 14 95 07/15/21 00:00 35.8 C L 84 21 85/57 L 90 07/14/21 23:30 35.8 C L 91 H 23 95 07/14/21 23:00 35.8 C L 88 15 92/65 L 96 07/14/21 22:05 35.8 C L 101 H 18 97/66 L 91 07/14/21 22:00 35.8 C L 91 H 15 97/66 L 95 07/14/21 21:49 35.8 C L 86 18 90/66 L 90 07/14/21 21:41 35.8 C L 85 18 98/58 L 94 07/14/21 21:16 35.8 C L 85 18 93/69 L 94 07/14/21 21:01 35.9 C L 90 18 94/61 L 95 07/14/21 21:00 35.9 C L 103 H 18 93/60 L 95 07/14/21 20:42 35.9 C L 85 17 91/55 L 94 07/14/21 20:21 98 H 07/14/21 19:36 36.4 C L 107 H 20 103/68 95
[2021-07-15] MEDS: THIAMINE HCL 200 MG in SODIUM CHLORIDE 0.9% 50 ML IV SCH ×2 (08:11→20:39)
[2021-07-15] MEDS: OCTREOTIDE ACETATE 500 MCG in 0.9 % SODIUM CHLORIDE 100 ML IV SCH ×2 (08:11→16:51)
[2021-07-15] MEDS: FLUTICASONE/VILANTEROL 100/25MCG 14 PUFFS/INHALER INH SCH (08:13)
[2021-07-15] MEDS: MICONAZOLE NITRATE POWDER 43 GM EXT SCH ×2 (08:14→20:37)
--- NOTE | 2021-07-15 08:43 | Gastroenterology Progress Note ---
Date of Service July 15, 2021 Assessment & Plan (1) Cirrhosis: Plan: Recommend obtaining records from Hospitalization at [facility] for further evaluation of workup Continue Midodrine 10 mg PO TID and Albumin as per Nephrology. Diuretics on hold at present time due to worsening renal function Continue Xifaxan 550 mg by mouth PO BID and Lactulose, and titrate to have 3 BM's per day Continue Protonix gtt Octreotide gtt by Hospitalist team As she has previously been on Propranolol in the past, she may have had varices on prior EGD, however, I do not have these records Maintain NPO for planned EGD today. Called and left a message for the patient's niece to discuss procedure. US for portal veins yesterday demonstrated small amount of ascites though weight difference today of 25 pounds (possibly related to difference in standing and bed scales). Will need to monitor closely. Followup with [facility] transplant center in the future, however, it appears she will not be a good candidate due to Co-morbid medical conditions Case reviewed with Dr. Bergman. Please refer to supervising physician addendum for further recommendations. (2) Anemia: Admission and Anticipated Discharge Date Admission Date: July 04, 2021 Supervising Physician Co-Signing Physician Notes I have seen and examined the patient. I agree with note above by SARTHAK Bucio except as noted below. HPI Pt is lethargic and not really answering my questions appropriately. Per nursing no stools today and no vomiting. She is hypotensive and requiring pressors to maintain adequate pressures to help with renal function. PE Abdomen pos bs, soft, no guarding nor rebound A/P GI bleeding---no gross bleeding noted at present. Anesthesia feels the general anesthesia required to perform EGD is high risk and will likely cause more harm than good at this point in the absence of life threatening bleeding ( I agree). Continue supportive care. Follow H and H. End stage liver disease hypotension--would treat with abx in case this is from infectious process. Discussed with Niece Alice who is decision maker and discussed try to get patient to [facility] where liver transplantation services are available versus give supportive care here. Explained it does not look good for her to survive this. Alice is opting to keep patient here with supportive care. Subjective Patient wakens easily with verbal stimuli. Alert to person and knows she is in a hospital this morning. Does not want to be in the hospital and thinks she can go home today. Denies abdominal pain, nausea, or vomiting. Complaining of back pain. Nursing at bedside. Contact precautions due to VRE and ESBL. Review of Systems Review of Systems: All systems reviewed & are unremarkable except as noted in HPI & below Physical Exam Constitutional: + ill appearing (chronic); no acute distress Eyes: + anicteric sclerae ENMT: external ear and nose normal, oropharynx normal Neck: normal visual inspection Respiratory: normal respiratory effort, lungs clear to auscultation Cardiovascular: RRR, no murmur, no edema Gastrointestinal (Abdomen): Inspection/Auscultation: + abdomen distended and normal bowel sounds Percussion/Palpation: abdomen soft and + fluid wave; abdomen nontender, no guarding, abdomen not rigid and no hepatosplenomegaly Skin: + pallor Psychiatric: Orientation: oriented to person; + uncooperative Apperance: + disheveled Results & Data ([facility]) Vital Signs (Past 12 Hours) Vital Signs Temp Pulse Resp BP BP Pulse Ox 07/15/21 08:00 35.9 C L 85 16 86/57 L 94 07/15/21 07:30 35.9 C L 82 21 95 07/15/21 07:00 35.8 C L 76 24 95 07/15/21 06:18 100/58 L 07/15/21 06:00 35.8 C L 76 17 81/60 L 95 07/15/21 05:30 35.8 C L 79 25 H 96 07/15/21 05:00 35.8 C L 77 18 93/50 L 93 07/15/21 04:30 35.8 C L 85 17 93 07/15/21 04:00 35.8 C L 96 H 22 103/66 90 07/15/21 03:54 35.8 C L 90 19 93/55 L 91 07/15/21 03:30 35.8 C L 73 25 H 93/61 L 90 07/15/21 03:29 35.8 C L 90 19 92/65 L 92 07/15/21 03:14 35.8 C L 86 19 93/61 L 93 07/15/21 02:54 35.8 C L 82 19 92/61 L 94 07/15/21 02:48 35.8 C L 82 19 92/61 L 94 07/15/21 02:30 35.8 C L 77 18 88/56 L 94 07/15/21 02:00 35.8 C L 88 17 101/66 96 07/15/21 01:45 35.8 C L 86 19 88/58 L 94 07/15/21 01:30 35.8 C L 94 H 27 H 83/55 L 94 07/15/21 01:25 35.8 C L 85 19 91/51 L 95 07/15/21 01:00 35.8 C L 102 H 19 91/51 L 95 07/15/21 00:30 35.8 C L 88 14 95 07/15/21 00:00 35.8 C L 84 21 85/57 L 90 07/14/21 23:30 35.8 C L 91 H 23 95 07/14/21 23:00 35.8 C L 88 15 92/65 L 96 07/14/21 22:05 35.8 C L 101 H 18 97/66 L 91 07/14/21 22:00 35.8 C L 91 H 15 97/66 L 95 07/14/21 21:49 35.8 C L 86 18 90/66 L 90 07/14/21 21:41 35.8 C L 85 18 98/58 L 94 07/14/21 21:16 35.8 C L 85 18 93/69 L 94 07/14/21 21:01 35.9 C L 90 18 94/61 L 95 07/14/21 21:00 35.9 C L 103 H 18 93/60 L 95 07/14/21 20:42 35.9 C L 85 17 91/55 L 94 Laboratory Results Laboratory Results - last 24 hr 07/14/21 07/14/21 07/14/21 08:56 08:56 08:56 WBC 5.74 RBC 2.14 L Hgb 6.8 L* Hct 20.4 L* MCV 95.3 MCH 31.8 MCHC 33.3 RDW Std Deviation 52.4 H RDW Coeff of Shirley 15.4 H Plt Count 21 L* MPV 11.3 H Immature Gran % (Auto) 0.3 Neut % (Auto) 87.7 Lymph % (Auto) 7.3 [place] % (Auto) 1.4 Eos % (Auto) 3.1 Baso % (Auto) 0.2 Neut # (Auto) 5.03 Lymph # (Auto) 0.42 L [place] # (Auto) 0.08 L Eos # (Auto) 0.18 Baso # (Auto) 0.01 Immature Gran # (Auto) 0.02 Platelet Estimate SIGNIFIC DECREASED Echinocytes Acanthocytes (Spur) 2+ PT 19.4 H INR 2.0 H Fibrinogen Fibrin Degrad Products D-Dimer Sodium 130 L Potassium 5.4 H Chloride 93 L Carbon Dioxide 22 Anion Gap 15.0 H BUN 71 H Creatinine 3.19 H D Est Cr Clr Drug Dosing 21.3 Est GFR ( Amer) 17.1 Est GFR (Non-Af Amer) 14.7 BUN/Creatinine Ratio 22.1 H Glucose 93 Calcium 9.5 Phosphorus Magnesium Total Bilirubin 4.8 H Direct Bilirubin AST 29 ALT 15 Alkaline Phosphatase 64 Ammonia Total Protein 6.5 Albumin 3.1 L Globulin 3.4 Albumin/Globulin Ratio 0.9 Blood Type Antibody Screen Crossmatch 07/14/21 07/14/21 07/14/21 11:27 17:42 17:42 WBC 5.94 RBC 2.36 L Hgb 7.5 L Hct 22.2 L MCV 94.1 MCH 31.8 MCHC 33.8 RDW Std Deviation 50.7 H RDW Coeff of Shirley 15.3 H Plt Count 25 L* MPV Immature Gran % (Auto) Neut % (Auto) Lymph % (Auto) [place] % (Auto) Eos % (Auto) Baso % (Auto) Neut # (Auto) Lymph # (Auto) [place] # (Auto) Eos # (Auto) Baso # (Auto) Immature Gran # (Auto) Platelet Estimate SIGNIFIC DECREASED Echinocytes Acanthocytes (Spur) PT INR Fibrinogen Fibrin Degrad Products >40 H D-Dimer Sodium Potassium Chloride Carbon Dioxide Anion Gap BUN Creatinine Est Cr Clr Drug Dosing Est GFR ( Amer) Est GFR (Non-Af Amer) BUN/Creatinine Ratio Glucose Calcium Phosphorus Magnesium Total Bilirubin Direct Bilirubin AST ALT Alkaline Phosphatase Ammonia Total Protein Albumin Globulin Albumin/Globulin Ratio Blood Type O Positive Antibody Screen NEGATIVE Crossmatch See Detail 07/14/21 07/14/21 07/14/21 17:42 17:42 17:42 WBC RBC Hgb Hct MCV MCH MCHC RDW Std Deviation RDW Coeff of [place] Plt Count MPV Immature Gran % (Auto) Neut % (Auto) Lymph % (Auto) [place] % (Auto) Eos % (Auto) Baso % (Auto) Neut # (Auto) Lymph # (Auto) [place] # (Auto) Eos # (Auto) Baso # (Auto) Immature Gran # (Auto) Platelet Estimate Echinocytes Acanthocytes (Spur) PT INR Fibrinogen Fibrin Degrad Products D-Dimer 46247 H* Sodium 130 L Potassium 5.5 H Chloride 92 L Carbon Dioxide 22 Anion Gap 16.0 H BUN 74 H Creatinine 3.13 H Est Cr Clr Drug Dosing 21.7 Est GFR ( Amer) 17.5 Est GFR (Non-Af Amer) 15.1 BUN/Creatinine Ratio 23.7 H Glucose 82 Calcium 9.6 Phosphorus Magnesium Total Bilirubin Direct Bilirubin AST ALT Alkaline Phosphatase Ammonia 16.3 Total Protein Albumin Globulin Albumin/Globulin Ratio Blood Type Antibody Screen Crossmatch 07/14/21 07/15/21 07/15/21 19:40 00:23 00:23 WBC 5.00 RBC 2.22 L Hgb 6.9 L* Hct 21.0 L MCV 94.6 MCH 31.1 MCHC 32.9 RDW Std Deviation 51.2 H RDW Coeff of [place] 15.4 H Plt Count 27 L* MPV Immature Gran % (Auto) 0.0 Neut % (Auto) 86.8 Lymph % (Auto) 7.8 [place] % (Auto) 1.6 Eos % (Auto) 3.6 Baso % (Auto) 0.2 Neut # (Auto) 4.34 Lymph # (Auto) 0.39 L [place] # (Auto) 0.08 L Eos # (Auto) 0.18 Baso # (Auto) 0.01 Immature Gran # (Auto) 0.00 Platelet Estimate SIGNIFIC DECREASED Echinocytes 1+ Acanthocytes (Spur) 1+ PT INR Fibrinogen 94 L* Fibrin Degrad Products D-Dimer Sodium 127 L Potassium 5.6 H Chloride 92 L Carbon Dioxide 22 Anion Gap 13.0 H BUN 75 H Creatinine 3.17 H Est Cr Clr Drug Dosing 21.5 Est GFR ( Amer) 17.2 Est GFR (Non-Af Amer) 14.9 BUN/Creatinine Ratio 23.7 H Glucose 92 Calcium 9.8 Phosphorus Magnesium Total Bilirubin Direct Bilirubin AST ALT Alkaline Phosphatase Ammonia Total Protein Albumin Globulin Albumin/Globulin Ratio Blood Type Antibody Screen Crossmatch 07/15/21 07/15/21 07/15/21 04:27 04:27 04:27 WBC 5.43 RBC 2.49 L Hgb 7.9 L Hct 23.5 L MCV 94.4 MCH 31.7 MCHC 33.6 RDW Std Deviation 51.1 H RDW Coeff of [place] 15.2 H Plt Count 33 L MPV 10.9 H Immature Gran % (Auto) 0.0 Neut % (Auto) 87.7 Lymph % (Auto) 6.4 [place] % (Auto) 1.8 Eos % (Auto) 3.9 Baso % (Auto) 0.2 Neut # (Auto) 4.76 Lymph # (Auto) 0.35 L [place] # (Auto) 0.10 L Eos # (Auto) 0.21 Baso # (Auto) 0.01 Immature Gran # (Auto) 0.00 Platelet Estimate Echinocytes Acanthocytes (Spur) 1+ PT 18.8 H INR 2.0 H Fibrinogen 116 L Fibrin Degrad Products D-Dimer Sodium Potassium Chloride Carbon Dioxide Anion Gap BUN Creatinine Est Cr Clr Drug Dosing Est GFR ( Amer) Est GFR (Non-Af Amer) BUN/Creatinine Ratio Glucose Calcium Phosphorus Magnesium Total Bilirubin Direct Bilirubin AST ALT Alkaline Phosphatase Ammonia Total Protein Albumin Globulin Albumin/Globulin Ratio Blood Type Antibody Screen Crossmatch 07/15/21 04:27 WBC RBC Hgb Hct MCV MCH MCHC RDW Std Deviation RDW Coeff of Shirley Plt Count MPV Immature Gran % (Auto) Neut % (Auto) Lymph % (Auto) [place] % (Auto) Eos % (Auto) Baso % (Auto) Neut # (Auto) Lymph # (Auto) [place] # (Auto) Eos # (Auto) Baso # (Auto) Immature Gran # (Auto) Platelet Estimate Echinocytes Acanthocytes (Spur) PT INR Fibrinogen Fibrin Degrad Products D-Dimer Sodium 127 L Potassium 5.3 H Chloride 92 L Carbon Dioxide 23 Anion Gap 12.0 H BUN 75 H Creatinine 3.23 H Est Cr Clr Drug Dosing 22.3 Est GFR ( Amer) 16.8 Est GFR (Non-Af Amer) 14.5 BUN/Creatinine Ratio 23.1 H Glucose 92 Calcium 9.8 Phosphorus 5.4 H Magnesium 1.9 Total Bilirubin 6.6 H Direct Bilirubin 2.5 H AST 33 ALT 14 Alkaline Phosphatase 60 Ammonia Total Protein 6.5 Albumin 3.6 Globulin Albumin/Globulin Ratio Blood Type Antibody Screen Crossmatch Diagnostic Findings Portal Vein US 07/14/21 20:16 US duplex portal hepatic veins CLINICAL HISTORY: GI bleed. Assess for portal vein thrombosis. COMPARISON STUDY: Abdomen and pelvis CT 07/03/2021. FINDINGS: Nodular contour to the liver consistent with cirrhosis. There is a small amount of ascites identified. The main portal vein is not clearly identified. However, there is increased vascularity at the hepatic hilum concerning for cavernous transformation in the setting of chronic portal vein thrombosis. There is reversal of flow of the left portal vein. Hepatic veins appear patent. The hepatic arteries are also patent. The splenic vein near the splenic hilum is patent. The residual splenic vein is obscured by overlying bowel gas. IMPRESSION: 1. The main portal vein is not clearly identified. However, there is increased vascularity at the hepatic hilum concerning for cavernous transformation. There is reversal flow within the left portal vein. 2. The hepatic veins appear patent. 3. Cirrhotic liver with a small amount of ascites. ACT 112: Negative or not required by law. Electronically signed by: Tevin Kim M.D. 07/15/2021 7:21 AM Venous Doppler Study 07/14/21 20:16 LEFT LOWER EXTREMITY VENOUS DOPPLER CLINICAL HISTORY: Left leg swelling. Evaluate for deep venous thrombus. COMPARISON STUDY: No previous studies for comparison. TECHNIQUE: Sonography of the deep venous system of the left lower extremity was performed. Compression and augmentation were evaluated. FINDINGS: The left common femoral, superficial femoral and popliteal veins were compressible. Augmentation was normal. Flow was shown within the deep calf vessels. Note is made of left lower extremity subcutaneous edema. IMPRESSION: No evidence of deep venous thrombus within the left lower extremity. ACT 112: Negative or not required by law. Electronically signed by: Manas Montenegro M.D. 07/15/2021 6:45 AM
[2021-07-15] MEDS ORDERED: STAT IV Infusion **Titration per Protocol STA (09:00)
[2021-07-15] MEDS ORDERED: PHENYLEPHRINE HCL 20 MG in DEXTROSE 5% 500 ML IV SCH (09:00)
--- NOTE | 2021-07-15 09:11 | Critical Care Progress Note ---
Date of Service July 15, 2021 Assessment & Plan (1) Admitted to intensive care unit: Plan: Reason Critically Ill: 61-year-old female with acute blood loss anemia in the setting of likely upper GI bleeding complicated by ongoing thrombocytopenia with concerns for new onset DIC, hyperkalemia, hyponatremia, CHARLI with concerns for hepatorenal syndrome. NEURO - Possible delirium/metabolic encephalopathy. Improving. CARDIAC/VASCULAR - * Hypertension, A. fib: * Currently holding antihypertensive medications secondary to labile blood pressures. * Permanent A. fib with pacer in place. * Will start phenylephrine with goal MAP >70 to improve renal perfusion * Continue midodrine 10 mg TID RESPIRATORY - * COPD: * No issues presently * Continue breo GI/NUTRITION - * Likely UGIB: * Given concerns for UGIB in the chronic renal failure patient w/ thrombocytopenia requiring large amounts of blood products (specifically platelets), will reach out to [facility] for transfer to higher level of care for evaluation by hepatology/transplant (which she is scheduled for in July) as well as added utility of advanced blood bank support. * Status post 1 unit packed RBC and 1 unit platelets. 10 mg vitamin K given. Continue Protonix and octreotide. * Cirrhosis w/ Ascites: * Initially tapped on 07/04 for a total of 3L. No samples sent at that time. * continue lactulose and xifaxin RENAL/LYTES - * CHARLI vs. HRS: * Phenylephrine added to maintain mean arterial pressure above 70 mmHg. Monitor sodium level given hyponatremia. - * Thompson in place - Strict I&Os. ENDO - * No h/o DM * BSGs per unit protocol. ISS --> gtt per unit policy. * Hypothyroidism: * Continue home dosing of Levothyroxine. May consider transition to IV pending EGD findings. HEME - * Acute blood loss anemia: * Likely 2/2 UGIB. * Concerning in the patient w/ worsening thrombocytopenia and concerns for DIC. * Received 1 U PRBCs. * Recieved 1 U platelets. * Will add Cryo as Fibrinogen low. * Trend H&H/Plt - Transfuse as needed. * [facility] contacted last night due to concerns of limited blood bank in [facility] ID - * ESBL UTI: * Sensitive to Cipro. Cipro effective in covering for SBP as well. * * LINES/IV ACCESS - * PIVs x3 * Jay I have personally spent 38 minutes of critical care time in the direct management of this patient. This is a life/limb threatening event. This includes time spent evaluating patient, direct bedside care, chart review, placing orders, interpretation of diagnostic studies, discussion with consultants, patient, and family members, as well as other required patient management activities. This time is exclusive of all separately billable procedures, and teaching time and separate from and in addition to any other critical care service time. Thank you for allowing us to participate in the care of this patient. (2) Upper GI bleeding: (3) DIC (disseminated intravascular coagulation): (4) Acute blood loss anemia: (5) UTI (urinary tract infection): (6) Encephalopathy: (7) Ascites: (8) Anasarca: (9) Hypoalbuminemia: (10) Thrombocytopenia: (11) Cirrhosis: Admission and Anticipated Discharge Date Admission Date: July 04, 2021 Subjective Patient seen and examined. She denies any complaint at this present time. She is not on any vasopressor medications. No significant events this morning or overnight. Review of Systems Review of Systems: All systems reviewed & are unremarkable except as noted in HPI & below Physical Exam Physical Exam: Constitutional: Patient appears to be of their stated age. Patient is in no apparent distress. Patient is well-developed. Eyes: Pupils are equal round and reactive to light. Conjunctivae are normal. Anicteric sclera. Ears, nose, mouth and throat: No obvious deformities. Neck: Trachea is midline. Visual inspection is normal. Respiratory: Clear to auscultation bilaterally. No use of accessory muscles. No significant clubbing noted. Cardiovascular: Regular rate and rhythm. No murmurs. Trace edema. Gastrointestinal: Abdomen is mildly distended. Normal active bowel sounds. No tenderness to palpation. Musculoskeletal:Patient is able to move all extremities. Strength is 5 out of 5 in the upper and lower extremities. Skin: No rashes, warm dry and intact. Neurologic: No obvious focal neurological deficits seen. Psychiatric: Alert and oriented x3 with a euthymic affect. Lethargic. Results & Data Results & Data ([facility]) Vital Signs (Past 12 Hours) Vital Signs Temp Pulse Resp BP BP Pulse Ox 07/15/21 08:00 35.9 C L 85 16 86/57 L 94 07/15/21 07:30 35.9 C L 82 21 95 07/15/21 07:00 35.8 C L 76 24 95 07/15/21 06:18 100/58 L 07/15/21 06:00 35.8 C L 76 17 81/60 L 95 07/15/21 05:30 35.8 C L 79 25 H 96 07/15/21 05:00 35.8 C L 77 18 93/50 L 93 07/15/21 04:30 35.8 C L 85 17 93 07/15/21 04:00 35.8 C L 96 H 22 103/66 90 07/15/21 03:54 35.8 C L 90 19 93/55 L 91 07/15/21 03:30 35.8 C L 73 25 H 93/61 L 90 07/15/21 03:29 35.8 C L 90 19 92/65 L 92 07/15/21 03:14 35.8 C L 86 19 93/61 L 93 07/15/21 02:54 35.8 C L 82 19 92/61 L 94 07/15/21 02:48 35.8 C L 82 19 92/61 L 94 07/15/21 02:30 35.8 C L 77 18 88/56 L 94 07/15/21 02:00 35.8 C L 88 17 101/66 96 07/15/21 01:45 35.8 C L 86 19 88/58 L 94 07/15/21 01:30 35.8 C L 94 H 27 H 83/55 L 94 07/15/21 01:25 35.8 C L 85 19 91/51 L 95 07/15/21 01:00 35.8 C L 102 H 19 91/51 L 95 07/15/21 00:30 35.8 C L 88 14 95 07/15/21 00:00 35.8 C L 84 21 85/57 L 90 07/14/21 23:30 35.8 C L 91 H 23 95 07/14/21 23:00 35.8 C L 88 15 92/65 L 96 07/14/21 22:05 35.8 C L 101 H 18 97/66 L 91 07/14/21 22:00 35.8 C L 91 H 15 97/66 L 95 07/14/21 21:49 35.8 C L 86 18 90/66 L 90 07/14/21 21:41 35.8 C L 85 18 98/58 L 94 07/14/21 21:16 35.8 C L 85 18 93/69 L 94 07/14/21 21:01 35.9 C L 90 18 94/61 L 95 07/14/21 21:00 35.9 C L 103 H 18 93/60 L 95 Vital signs, labs and imaging reviewed Coding Level of Care Code Critical Care 1st 30-74 mins Diagnoses Admitted to intensive care unit Z78.9 Upper GI bleeding K92.2 DIC (disseminated intravascular coagulation) D65 Acute blood loss anemia D62 UTI (urinary tract infection) N39.0 Encephalopathy G93.40 Ascites R18.8 Anasarca R60.1 Hypoalbuminemia E88.09 Thrombocytopenia D69.6 Cirrhosis K74.60 Time Spent (min) 38
[2021-07-15] MEDS: rifAXIMin 550 MG TABLET PO SCH ×2 (09:14→20:37)
[2021-07-15] MEDS: MIDODRINE HCL 10 MG TAB PO SCH ×3 (09:14→16:48)
--- NOTE | 2021-07-15 10:28 | Nephrology Progress Note ---
Date of Service July 15, 2021 Assessment & Plan (1) Acute kidney injury: (2) Ascites: (3) Hepatic encephalopathy: (4) Ascites due to alcoholic cirrhosis: Plan: 61-year-old female with end stage liver disease admitted to the hospital on 07/02/2021 with anasarca. found to have hepatitic encephalopathy and AK I, creatinine was close to 3 with baseline creatinine before around 1.1. Also noted to have hyponatremia over last few months and during this hospitalization serum sodium has been around 132. Eventually renal function improved and creatinine was down to 1.6 however over last few days renal function worsened again and creatinine currently up to 2.8. Albumin has been low. Rapid progressive worsening of renal function with hyperkalemia, anemia and thrombocytopenia. Blood pressure remained low and continues to be lethargic. -- suggest starting on normal saline at 80 mL/hour. Monitor urine output. if renal function worsened and patient remained oligo Javier August, with her underlying advanced liver disease, she would not be a candidate for long-term dialysis. may need to consider comfort care/ hospice. -- continue on midodrine, octreotide and albumin -- Monitor intake and output -- overall prognosis remains guarded will follow Admission and Anticipated Discharge Date Admission Date: July 04, 2021 Juliette Amado was seen and examined in her room this morning. She was Transferred to ICU overnight because of persistent hyperkalemia and worsening renal function. She was responding with opening her eyes and answering few questions. she knows she is in hospital. denied any specific symptoms. Has been oligo anuric, renal function continues to worsen with multiple electrolyte abnormality including hyponatremia, hyperkalemia and metabolic acidosis. Has been hypotensive, on midodrine and albumin infusion. Review of Systems Review of Systems: Detailed review of system was Otherwise unremarkable Physical Exam Constitutional: WD/WN, vitals as above + ill appearing and + lethargic; no acute distress Neck: normal visual inspection Respiratory: normal respiratory effort; no respiratory distress Auscultation: + diminished lung sounds Cardiovascular: Rate/Rhythm: regular rate and regular rhythm Heart Sounds: normal S1 and normal S2 Extremities: no edema Gastrointestinal (Abdomen): Inspection/Auscultation: + abdomen distended and normal bowel sounds Skin: normal turgor; no rashes Neurologic: awake; no focal motor deficits Psychiatric: Orientation: alert Results & Data ([facility]) Vital Signs (Past 12 Hours) Vital Signs Temp Pulse Resp BP BP Pulse Ox 07/15/21 09:22 86/53 L 07/15/21 09:00 36.0 C L 82 18 97/53 L 93 07/15/21 08:30 36.0 C L 80 23 95 07/15/21 08:00 35.9 C L 85 16 86/57 L 94 07/15/21 07:30 35.9 C L 82 21 95 07/15/21 07:00 35.8 C L 76 24 95 07/15/21 06:18 100/58 L 07/15/21 06:00 35.8 C L 76 17 81/60 L 95 07/15/21 05:30 35.8 C L 79 25 H 96 07/15/21 05:00 35.8 C L 77 18 93/50 L 93 07/15/21 04:30 35.8 C L 85 17 93 07/15/21 04:00 35.8 C L 96 H 22 103/66 90 07/15/21 03:54 35.8 C L 90 19 93/55 L 91 07/15/21 03:30 35.8 C L 73 25 H 93/61 L 90 07/15/21 03:29 35.8 C L 90 19 92/65 L 92 07/15/21 03:14 35.8 C L 86 19 93/61 L 93 07/15/21 02:54 35.8 C L 82 19 92/61 L 94 07/15/21 02:48 35.8 C L 82 19 92/61 L 94 07/15/21 02:30 35.8 C L 77 18 88/56 L 94 07/15/21 02:00 35.8 C L 88 17 101/66 96 07/15/21 01:45 35.8 C L 86 19 88/58 L 94 07/15/21 01:30 35.8 C L 94 H 27 H 83/55 L 94 07/15/21 01:25 35.8 C L 85 19 91/51 L 95 07/15/21 01:00 35.8 C L 102 H 19 91/51 L 95 07/15/21 00:30 35.8 C L 88 14 95 07/15/21 00:00 35.8 C L 84 21 85/57 L 90 07/14/21 23:30 35.8 C L 91 H 23 95 07/14/21 23:00 35.8 C L 88 15 92/65 L 96 PG Care Time/CCT Total # of Minutes Spent Total Time Spent with Patient: Total time spent is greater than 50% in coordination of care (as documented) at patient's floor/unit and/or counseling patient: Coding Level of Care Code 19669 Subseq Hosp Care Lvl 3 Diagnoses Acute kidney injury N17.9 Ascites R18.8 Hepatic encephalopathy K72.90 Ascites due to alcoholic cirrhosis K70.31
[2021-07-15 11:00] LABS: BUN Creatinine Ratio 22.2 (10-20); Calcium 9.5 mg/dl (8.5-10.1); Creatinine Clr Calc Pharmacy 21.3 ml/min; Est GFR (African American) 15.9 ml/min; Est GFR (Non-African American) 13.7 ml/min; Potassium 5.3 mmol/L (3.5-5.1)
[2021-07-15] MEDS: PHENYLEPHRINE HCL 20 MG in SODIUM CHLORIDE 0.9% 500 ML IV SCH ×2 (11:22→20:36)
--- NOTE | 2021-07-15 13:08 | Palliative Care Progress Note ---
Date of Service July 15, 2021 Assessment & Plan (1) Palliative care encounter: Plan: I met with Ingris in her room. She was lethargic, but able to answer yes or no questions. Unfortunately, I am not certain that she has decision making capacity regarding her own medical ailments. I did call her niece and dedicated decision maker, Alice at [phone]. Official paperwork was completed by [facility] on 07/08 designating her to be her decision maker in the event she was unable. We discussed her code status and Alice was in agreement that she would not want her to undergo life sustaining or heroic measures that would not overall benefit her. DNR/DNI was discussed and code status was changed in the computer to reflect our conversation. Palliative medicine will follow if there is any additional changes or decline prior, please notify us. (2) Liver cirrhosis: (3) Ascites: (4) Encephalopathy: Admission and Anticipated Discharge Date Admission Date: July 04, 2021 Subjective patient arousable, but more lethargic than on previous encounters. She was able to answer a few yes or no questions, but nothing directly related to her complex care. Pt hypotensive. In ICU, due to blood loss and increased monitoring. See A/P for further details Review of Systems Review of Systems: [place] [facility] Assessment Scale: Pain: 0/3 Tiredness: 2/3 Lack of Appetite: 1/3 Anxiety: 0/3 SOB: 0/3 Palliative Performance Scale: 30% Physical Exam Constitutional: + thin and + frail appearing ENMT: Mouth: + dry oral mucous membranes Respiratory: normal respiratory effort Auscultation: lungs clear to auscultation bilaterally Cardiovascular: Rate/Rhythm: regular rate and regular rhythm Heart Sounds: normal S1 and normal S2 Extremities: normal capillary refill Gastrointestinal (Abdomen): Inspection/Auscultation: abdomen normal to inspection Percussion/Palpation: abdomen soft and + ascites Skin: + jaundice Psychiatric: Orientation: alert and oriented to person Insight: + poor insight Judgement: + poor judgement Results & Data ([facility]) Vital Signs (Past 12 Hours) Vital Signs Temp Pulse Resp BP BP Pulse Ox 07/15/21 09:22 86/53 L 07/15/21 09:00 36.0 C L 82 18 97/53 L 93 07/15/21 08:30 36.0 C L 80 23 95 07/15/21 08:00 35.9 C L 85 16 86/57 L 94 07/15/21 07:30 35.9 C L 82 21 95 07/15/21 07:00 35.8 C L 76 24 95 07/15/21 06:18 100/58 L 07/15/21 06:00 35.8 C L 76 17 81/60 L 95 07/15/21 05:30 35.8 C L 79 25 H 96 07/15/21 05:00 35.8 C L 77 18 93/50 L 93 07/15/21 04:30 35.8 C L 85 17 93 07/15/21 04:00 35.8 C L 96 H 22 103/66 90 07/15/21 03:54 35.8 C L 90 19 93/55 L 91 07/15/21 03:30 35.8 C L 73 25 H 93/61 L 90 07/15/21 03:29 35.8 C L 90 19 92/65 L 92 07/15/21 03:14 35.8 C L 86 19 93/61 L 93 07/15/21 02:54 35.8 C L 82 19 92/61 L 94 07/15/21 02:48 35.8 C L 82 19 92/61 L 94 07/15/21 02:30 35.8 C L 77 18 88/56 L 94 07/15/21 02:00 35.8 C L 88 17 101/66 96 07/15/21 01:45 35.8 C L 86 19 88/58 L 94 07/15/21 01:30 35.8 C L 94 H 27 H 83/55 L 94 07/15/21 01:25 35.8 C L 85 19 91/51 L 95 PG Care Time/CCT Total # of Minutes Spent Total Time Spent with Patient: Total time spent is greater than 50% in coordination of care (as documented) at patient's floor/unit and/or counseling patient: 45 minutes with > 50% of that time spent assessing the patient, discussing goals of care with the patients decision maker, and collaborating with IDT Coding Level of Care Code 58556 Subseq Hosp Care Lvl 3 Diagnoses Palliative care encounter Z51.5 Liver cirrhosis K74.60 Ascites R18.8 Encephalopathy G93.40 Time Spent (min) 45
--- NOTE | 2021-07-15 14:37 | Anesthesiology Consultation ---
Date of Service July 15, 2021 Assessment & Plan (1) Encounter for pre-operative examination: Chart Review Chart Review: Patient NOT seen in Pre Admission Testing Consults Requested none Additional Notes Pt critically ill with recent DIC requiring multiple blood products yesterday, hepatorenal syndrome with electrolyte imbalance including hyperkalemia, encephalopathy, and multiple other comorbidities. Per recent nephrology note, patient with worsening renal function but not a good candidate for long-term dialysis. Patient is currently an extremely poor anesthetic candidate. Attempts were made to reach [facility], but was left on hold for an extended period of time. Therefore, the call anesthesia team will need to have a serious discussion with the GI team about risk versus benefit of the planned procedure in light of how high risk the patient is for anesthetic complications. Please note, that according to the blood bank platelets are available but additional units of PRBCs need to be crossed before proceeding. History Surgery Operation Date: 07/15/21 11:00 Proposed Procedures p Esophagogastroduodenoscopy Dr Madalyn Bergman Operation Date: 07/15/21 16:40 Proposed Procedures p Esophagogastroduodenoscopy Dr Madalyn Bergman Height/Weight Height: 5 ft 8 in Weight: 102.6 kg Allergies Allergy/AdvReac Type Severity Reaction Status Date / Time levetiracetam Allergy Intermediate rash/hives Verified 07/02/21 21:28 Medications Home Medications Medication Instructions Recorded Confirmed Last Taken budesonide-formoterol HFA 160 2 puff INHALATION BID 04/22/18 07/02/21 05/02/18 mcg-4.5 mcg/actuation aerosol inhaler (Symbicort) folic acid 1 mg tablet 1 mg PO DAILY 04/22/18 07/02/21 05/02/18 furosemide 80 mg tablet (Lasix) 80 mg PO BID 04/22/18 07/02/21 05/02/18 gabapentin 400 mg capsule 400 mg PO QID 04/22/18 07/02/21 05/02/18 levothyroxine 50 mcg capsule 50 mcg PO QAM 04/22/18 07/02/21 05/02/18 omeprazole magnesium 20 mg 20 mg PO DAILY 04/22/18 07/02/21 05/03/18 09:00 tablet,delayed release (Prilosec OTC) propranolol 20 mg tablet 20 mg PO BID 04/22/18 07/02/21 05/03/18 09:00 rifaximin 550 mg tablet (Xifaxan) 550 mg PO BID 04/22/18 07/02/21 05/02/18 spironolactone 50 mg tablet 50 mg PO BID 04/22/18 07/02/21 05/02/18 (Aldactone) vitamin B12 500 mcg-folic acid 400 1 tab PO DAILY 04/22/18 07/02/21 05/02/18 mcg tablet Active Medications Generic Name Dose Route Start Last Admin Trade Name Freq PRN Reason Stop Dose Admin Fluticasone/Vilanterol 1 puffs 07/03/21 09:00 07/15/21 08:13 Fluticasone/Vilanterol 100/25mcg 14 Puffs/Inhaler INH 08/02/21 08:59 1 puffs DAILY TRAVIS Administration Folic Acid 1 mg 07/07/21 15:45 07/14/21 10:16 Folic Acid 1 Mg Tab PO 08/06/21 15:44 1 mg QAM TRAVIS Administration Furosemide 40 mg 07/05/21 17:00 07/11/21 08:06 Furosemide 40 Mg Tab PO 08/04/21 16:59 40 mg BID17 TRAVIS Administration Gabapentin 300 mg 07/03/21 09:00 07/14/21 10:15 Gabapentin 300 Mg Cap PO 08/02/21 08:59 300 mg BID TRAVIS Administration Albumin Human 25 gm in 100 mls @ 50 mls/hr 07/13/21 09:00 07/15/21 11:20 Albumin 25% 100 Ml IV 07/16/21 08:59 Infused Q8H TRAVIS Infusion Ciprofloxacin 400 mg in 200 mls @ 100 mls/hr 07/14/21 16:00 07/14/21 18:38 Cipro / D5w IV 07/20/21 17:59 Infused Q24H TRAVIS Infusion Protocol Thiamine HCl 200 mg/ Sodium 52 mls @ 208 mls/hr 07/14/21 09:00 07/15/21 09:02 Chloride IV 08/13/21 08:59 Infused BID TRAVIS Infusion Octreotide Acetate 500 mcg/ 105 mls @ 10.5 mls/hr 07/14/21 10:15 07/15/21 08:11 Sodium Chloride IV 08/13/21 10:14 50 mcg/hr .Q10H TRAVIS 10.5 mls/hr Administration 50 MCG/HR Pantoprazole Sodium 40 mg/ 100 mls @ 20 mls/hr 07/14/21 10:15 07/15/21 11:16 Dextrose IV 08/13/21 10:14 8 mg/hr Q5H TRAVIS 20 mls/hr Administration 8 MG/HR Phenylephrine HCl 20 mg/ 502 mls @ 46.355 mls/hr 07/15/21 10:15 07/15/21 11:45 Sodium Chloride IV 08/14/21 10:14 0.3 mcg/kg/min .[id number] TRAVIS 46.4 mls/hr Titration Protocol 0.3 MCG/KG/MIN Lactulose 40 gm 07/06/21 14:00 07/14/21 10:15 Lactulose Syrup 20 Gm/30 Ml Udc PO 08/05/21 13:59 Not Given TID TRAVIS Levothyroxine Sodium 100 mcg 07/08/21 06:30 07/14/21 05:58 Levothyroxine Sodium 100 Mcg Tablet PO 08/07/21 06:29 100 mcg DAILYBB TRAVIS Administration Miconazole Nitrate 1 appln 07/06/21 10:15 07/15/21 08:14 Miconazole Nitrate Powder 43 Gm EXT 08/05/21 10:14 1 appln BID TRAVIS Administration Midodrine 10 mg 07/04/21 08:00 07/15/21 11:23 Midodrine Hcl 10 Mg Tab PO 08/03/21 07:59 Not Given TID@0800,1200,1700 TRAVIS Propranolol HCl 20 mg 07/03/21 09:00 07/12/21 20:43 Propranolol Hcl 20 Mg Tab PO 08/02/21 08:59 Not Given BID TRAVIS Rifaximin 550 mg 07/03/21 09:00 07/15/21 09:14 Rifaximin 550 Mg Tablet PO 08/02/21 08:59 Not Given BID TRAVIS Senna/Docusate Sodium 1 tab 07/05/21 16:45 07/14/21 10:17 Docusate Sodium/Senna 50/8.6mg Tab PO 08/04/21 16:44 Not Given QAM TRAVIS Past Medical History Medical History Anxiety disorder Ascites ASD (atrial septal defect) Cirrhosis COPD (chronic obstructive pulmonary disease) Encephalopathy Fibromyalgia Hepatic insufficiency Hypertension Liver cirrhosis Osteoarthritis Pacemaker IRREGULAR HEART BEAT 1999 Palliative care encounter Past Surgical History Surgical History Gastric bypass status for obesity H/O shoulder surgery LEFT SHOULDER FX REPAIR (HARDWARE PRESENT) History of cataract surgery RT Hx of cholecystectomy Social History Smoking Status: Never smoker Do You Dip or Chew Tobacco: No Hx Alcohol Use: Yes Alcohol type: wine and hard liquor alcohol intake frequency: other Alcohol Intake Frequency Comment: Former alcohol user according to patient. Hx Substance Use: No substance use type: does not use Physical Exam Vital Signs Last Vital Signs Temp 36.3 C L 07/15/21 13:30 Pulse 98 H 07/15/21 13:30 Resp 20 07/15/21 13:30 BP 101/61 07/15/21 13:00 Pulse Ox 92 07/15/21 13:30 Testing Laboratory Results 07/15/21 04:27 07/15/21 10: PT 18.8 Seconds (9.0-12.0) H 07/15/21 04:27 INR 2.0 (0.9-1.1) H 07/15/21 04:27 Urine Color Dark Yellow 07/09/21 18:30 Urine Appearance Cloudy (Clear) A 07/09/21 18:30 Urine pH 5.0 (4.5-7.5) 07/09/21 18:30 Ur Specific [place] 1.011 (1.000-1.030) 07/09/21 18:30 Urine Protein 1+ (Negative) H 07/09/21 18:30 Urine Glucose (UA) Negative (Negative) 07/09/21 18:30 Urine Ketones Negative (Negative) 07/09/21 18:30 Urine Nitrite Positive (Negative) A 07/09/21 18:30 Ur Leukocyte Esterase 2+ (Negative) H 07/09/21 18:30 Urine WBC (Auto) >30 /hpf (0-5) H 07/09/21 18:30 Urine RBC (Auto) 10-30 /hpf (0-4) H 07/09/21 18:30 U Hyaline Cast (Auto) 1-5 /lpf (0-5) 07/09/21 18:30 U Epithel Cells (Auto) 5-10 /lpf (0-5) H 07/09/21 18:30 Urine Bacteria (Auto) 2+ (Negative) H 07/09/21 18:30 Blood Type O Positive 07/14/21 11:27 Antibody Screen NEGATIVE 07/14/21 11:07/09/21 18:30 Urine Culture - Final Urine,Clean Catch Escherichia coli ESBL Pseudomonas aeruginosa Electrocardiogram Date: 07/03/21 Findings: + AFIB @ (69) occasional ventricular paced complexes, low voltage QRS, possible old inferior/anteriolateral infarct Echocardiogram Date: 07/03/21 EF: 60-65% LV Function: normal LV borderline dilated, flattened septum consistent with RV pressure/volume overload, mild LV hypertrophy, RV mild to moderately dilated, left atrium moderately dilated, RV systolic pressure normal, inferior vena cava moderately dilated, severe MR, moderate TR
[2021-07-15] MEDS ORDERED: NORMOSOL-R 500 ML IV ONE (15:17)
[2021-07-15] MEDS: CIPROFLOXACIN / D5W 400 MG/200 ML BAG IV SCH (15:57)
[2021-07-15 16:36] LABS: Platelet Count 28 K/uL (130-400)
[2021-07-15 16:37] LABS: Hemoglobin 8.5 g/dL (12.0-16.0); Mean Corpuscular Hemoglobin 31.5 pg (25-34); Mean Corpuscular Volume 92.6 fL (80-100); RDW Coefficient of Variation 15.2 % (11.5-14.5); RDW Standard Deviation 50.3 fL (36.4-46.3); White Blood Count 7.33 K/uL (4.8-10.8)
[2021-07-15 16:38] LABS: Basophils # (auto) 0.02 K/uL (0-0.2); Basophils % (auto) 0.3 %; Echinocytes 1+; Eosinophils # (auto) 0.38 K/uL (0-0.5); Eosinophils % (auto) 5.2 %; Immature Granulocytes # (auto) 0.02 K/uL (0.00-0.02); Immature Granulocytes % (auto) 0.3 %; Lymphocytes # (auto) 0.81 K/uL (1.2-3.4); Lymphocytes % (auto) 11.1 %; Monocytes # (auto) 0.15 K/uL (0.11-0.59); Neutrophils # (auto) 5.95 K/uL (1.4-6.5); Neutrophils % (auto) 81.1 %; Platelet Estimate SIGNIFIC DECREASED (Normal)
--- NOTE | 2021-07-15 18:00 | Hospitalist Progress Note ---
Date of Service July 15, 2021 Assessment & Plan (1) Acute blood loss anemia: Plan: presumed 2nd to upper GI bleeding. remains on PPI drip and octreotide drip (patient with known varices). NPO. s/p 3 units PRBCs and 2 units of platelets along with 1 uni of cryoprecipitate. vitamin K given yesterday, and an additional dose of such administered today as well. serial CBCs. EGD was planned today but there were concerns of sedation and/or general anesthesia for the procedure in the setting of her critical illness; thus, EGD not completed. (2) Upper GI bleeding: Plan: Esophageal varices vs PUD vs gastritis vs AVMs vs combination of factors vs other. See #1 above. PPI + octreotide drips. Appreciate GI consultation. (3) Encephalopathy acute: Plan: Ammonia level continues to remain normal with use of BID rifaximin. Suspect worsening CHARLI and numerous other metabolic factors are contributing to altered MS. Can't rule out UTI contributing. Cont cipro. Can't rule out SBP - cont cipro (s/p paracentesis last week, but fluid studies not sent). Can't rule out Wernicke's -- continue thiamine IV Can't exclude an underlying dementia process but less likely. Can't rule out other source of infection. (4) Hyperkalemia: Plan: 2nd to CHARLI. Veltassa x 2 doses with improved K level today. Serial BMPs. (5) DIC (disseminated intravascular coagulation): Plan: Possible. Coags high, d-dimer very high, FDP high, platelets low, active GI bleeding. Transfusional support - PRBCs, platelets, cryo; +/- FFP. At minimum her advanced cirrhosis causes synthetic dysfunction leading to loss of coagulation factor production, fibrinogen, etc. (6) Acute kidney injury: Plan: Patient had been diuresed earlier in her stay due to anasarca. With rising creatinine her diuretics and beta malathi were held. Urine Na <5 etiology -- pre-renal/ATN vs hepatorenal syndrome vs other; favor HRS type 1. day #3 of octreotide, albumin 25% - 25gm TID IV; and midodrine TID without response now on phenylephrine to keep MAP >65 appreciate nephrology consult and recs appreciate critical care assistance cont serial BMPs, naidu, etc (7) Coagulopathy: Plan: 2nd to advanced cirrhosis see above s/p vit K x 2 doses over last 24 hours w/o any improvement in INR (8) Ascites due to alcoholic cirrhosis: Plan: 07/04 s/p paracentesis with only 3 L removed fluid studies & cell counts not sent thus SBP could not be ruled out hepatorenal syndrome - if present - can be precipitated by SBP cont IV cipro (9) COPD (chronic obstructive pulmonary disease): Plan: no exacerbation at this time stable O2 sats in RA (10) Hepatic encephalopathy: Plan: improved with lactulose + rifaximin ammonia levels have been normal over last 48 hours holding lactulose due to copious stools (11) Hypertension: Plan: holding all diuretics and inderal due to low BPs (12) Hypothyroidism: Plan: TSH wnl continue synthroid (13) Pacemaker: (14) Permanent atrial fibrillation: Plan: not on anticoagulation rates acceptable in the setting of her multi-organ failure (15) Portal hypertension with esophageal varices: Plan: see above (16) Thrombocytopenia: Plan: SEVERE 2nd to advanced cirrhosis cannot exclude DIC Tx 2 units platelets serial CBCs (17) UTI (urinary tract infection): Plan: VRE UTI earlier this month at [facility] had completed 7+ days of zyvox -- this has been discontinued urine cx this admission with pseudomonas + ESBL ecoli - both amenable to cipro - continue cipro, day #5 today (18) Gastric bypass status for obesity: Plan: noted (19) Hyponatremia: Plan: 2nd to Acute renal failure serial BMPs Plan: remains critically ill with very poor prognosis Admission and Anticipated Discharge Date Admission Date: July 04, 2021 Subjective patient quite confused during the visit denies pain in any location however, unable to provide any meaningful history or ROS events of overnight reviewed s/p multiple PRBCs, platelets, and cryo for presumed upper GI bleeding also now on phenylephrine for hypotension Review of Systems Review of Systems: Unobtainable due to cognitive status Physical Exam Physical Exam: gen - confused, toxic, no distress skin - ecchymoses in various locations neck - no JVD mouth - MM dry; dried blood on lips and in mouth heart - RR, irregular, s1 s2, no murmur lungs - decreased BS bases; still no rales abd - marked distension with ascites, BS+, NT; scar tissue RUQ? ext - 2+ pitting edema, pulses 1+ b/l; left leg is larger than right leg - no change from prior exams neuro - asterixis present psych - oriented to person only; lethargic Results & Data Results & Data ([facility]) Vital Signs (Past 12 Hours) Vital Signs Temp Pulse Pulse Resp BP BP Pulse Ox 07/15/21 17:00 36.4 C L 87 19 105/73 92 07/15/21 16:30 36.5 C 17 119/93 90 07/15/21 16:00 36.4 C L 70 18 102/68 94 07/15/21 15:30 36.4 C L 89 19 108/77 93 07/15/21 15:00 36.4 C L 120 H 20 92 07/15/21 14:47 36.4 C L 86 16 104/66 89 L 07/15/21 14:30 36.3 C L 100 H 16 92 07/15/21 14:00 36.3 C L 94 H 16 92/57 L 90 07/15/21 13:30 36.3 C L 98 H 20 92 07/15/21 13:00 36.3 C L 91 H 17 101/61 94 07/15/21 12:30 36.2 C L 87 19 98/65 L 95 07/15/21 12:00 36.2 C L 90 17 99/71 L 92 07/15/21 11:30 36.1 C L 84 16 96/64 L 93 07/15/21 11:00 36.1 C L 81 18 87/55 L 94 07/15/21 10:30 36.1 C L 76 17 92 07/15/21 10:00 36.1 C L 83 28 H 95 07/15/21 09:30 36.0 C L 83 18 80/57 L 93 07/15/21 09:22 86/53 L 07/15/21 09:00 36.0 C L 82 18 97/53 L 93 07/15/21 08:30 36.0 C L 80 23 95 07/15/21 08:00 35.9 C L 85 16 86/57 L 94 07/15/21 07:30 35.9 C L 82 21 95 07/15/21 07:00 35.8 C L 76 24 95 07/15/21 06:18 100/58 L 07/15/21 06:00 35.8 C L 76 17 81/60 L 95 Laboratory Results Laboratory Results - last 24 hr 07/13/21 07/14/21 07/14/21 09:32 11:27 17:42 WBC 5.94 RBC 2.36 L Hgb 7.5 L Hct 22.2 L MCV 94.1 MCH 31.8 MCHC 33.8 RDW Std Deviation 50.7 H RDW Coeff of Shirley 15.3 H Plt Count 25 L* MPV Immature Gran % (Auto) Neut % (Auto) Lymph % (Auto) [place] % (Auto) Eos % (Auto) Baso % (Auto) Neut # (Auto) Lymph # (Auto) [place] # (Auto) Eos # (Auto) Baso # (Auto) Immature Gran # (Auto) Platelet Estimate SIGNIFIC DECREASED Echinocytes Acanthocytes (Spur) PT INR Fibrinogen Fibrin Degrad Products D-Dimer Sodium Potassium Chloride Carbon Dioxide Anion Gap BUN Creatinine Est Cr Clr Drug Dosing Est GFR ( Amer) Est GFR (Non-Af Amer) BUN/Creatinine Ratio Glucose Calcium Phosphorus Magnesium Total Bilirubin Direct Bilirubin AST ALT Alkaline Phosphatase Ammonia Total Protein Albumin Random Cortisol 12.40 Blood Type O Positive Antibody Screen NEGATIVE Crossmatch See Detail 07/14/21 07/14/21 07/14/21 17:42 17:42 17:42 WBC RBC Hgb Hct MCV MCH MCHC RDW Std Deviation RDW Coeff of [place] Plt Count MPV Immature Gran % (Auto) Neut % (Auto) Lymph % (Auto) [place] % (Auto) Eos % (Auto) Baso % (Auto) Neut # (Auto) Lymph # (Auto) [place] # (Auto) Eos # (Auto) Baso # (Auto) Immature Gran # (Auto) Platelet Estimate Echinocytes Acanthocytes (Spur) PT INR Fibrinogen Fibrin Degrad Products >40 H D-Dimer 07079 H* Sodium 130 L Potassium 5.5 H Chloride 92 L Carbon Dioxide 22 Anion Gap 16.0 H BUN 74 H Creatinine 3.13 H Est Cr Clr Drug Dosing 21.7 Est GFR ( Amer) 17.5 Est GFR (Non-Af Amer) 15.1 BUN/Creatinine Ratio 23.7 H Glucose 82 Calcium 9.6 Phosphorus Magnesium Total Bilirubin Direct Bilirubin AST ALT Alkaline Phosphatase Ammonia Total Protein Albumin Random Cortisol Blood Type Antibody Screen Crossmatch 07/14/21 07/14/21 07/15/21 17:42 19:40 00:23 WBC 5.00 RBC 2.22 L Hgb 6.9 L* Hct 21.0 L MCV 94.6 MCH 31.1 MCHC 32.9 RDW Std Deviation 51.2 H RDW Coeff of [place] 15.4 H Plt Count 27 L* MPV Immature Gran % (Auto) 0.0 Neut % (Auto) 86.8 Lymph % (Auto) 7.8 [place] % (Auto) 1.6 Eos % (Auto) 3.6 Baso % (Auto) 0.2 Neut # (Auto) 4.34 Lymph # (Auto) 0.39 L [place] # (Auto) 0.08 L Eos # (Auto) 0.18 Baso # (Auto) 0.01 Immature Gran # (Auto) 0.00 Platelet Estimate SIGNIFIC DECREASED Echinocytes 1+ Acanthocytes (Spur) 1+ PT INR Fibrinogen 94 L* Fibrin Degrad Products D-Dimer Sodium Potassium Chloride Carbon Dioxide Anion Gap BUN Creatinine Est Cr Clr Drug Dosing Est GFR ( Amer) Est GFR (Non-Af Amer) BUN/Creatinine Ratio Glucose Calcium Phosphorus Magnesium Total Bilirubin Direct Bilirubin AST ALT Alkaline Phosphatase Ammonia 16.3 Total Protein Albumin Random Cortisol Blood Type Antibody Screen Crossmatch 07/15/21 07/15/21 07/15/21 00:23 04:27 04:27 WBC 5.43 RBC 2.49 L Hgb 7.9 L Hct 23.5 L MCV 94.4 MCH 31.7 MCHC 33.6 RDW Std Deviation 51.1 H RDW Coeff of [place] 15.2 H Plt Count 33 L MPV 10.9 H Immature Gran % (Auto) 0.0 Neut % (Auto) 87.7 Lymph % (Auto) 6.4 [place] % (Auto) 1.8 Eos % (Auto) 3.9 Baso % (Auto) 0.2 Neut # (Auto) 4.76 Lymph # (Auto) 0.35 L [place] # (Auto) 0.10 L Eos # (Auto) 0.21 Baso # (Auto) 0.01 Immature Gran # (Auto) 0.00 Platelet Estimate Echinocytes Acanthocytes (Spur) 1+ PT INR Fibrinogen 116 L Fibrin Degrad Products D-Dimer Sodium 127 L Potassium 5.6 H Chloride 92 L Carbon Dioxide 22 Anion Gap 13.0 H BUN 75 H Creatinine 3.17 H Est Cr Clr Drug Dosing 21.5 Est GFR ( Amer) 17.2 Est GFR (Non-Af Amer) 14.9 BUN/Creatinine Ratio 23.7 H Glucose 92 Calcium 9.8 Phosphorus Magnesium Total Bilirubin Direct Bilirubin AST ALT Alkaline Phosphatase Ammonia Total Protein Albumin Random Cortisol Blood Type Antibody Screen Crossmatch 07/15/21 07/15/21 07/15/21 04:27 04:27 10:21 WBC RBC Hgb Hct MCV MCH MCHC RDW Std Deviation RDW Coeff of [place] Plt Count MPV Immature Gran % (Auto) Neut % (Auto) Lymph % (Auto) [place] % (Auto) Eos % (Auto) Baso % (Auto) Neut # (Auto) Lymph # (Auto) [place] # (Auto) Eos # (Auto) Baso # (Auto) Immature Gran # (Auto) Platelet Estimate Echinocytes Acanthocytes (Spur) PT 18.8 H INR 2.0 H Fibrinogen Fibrin Degrad Products D-Dimer Sodium 127 L 129 L Potassium 5.3 H 5.3 H Chloride 92 L 94 L Carbon Dioxide 23 20 L Anion Gap 12.0 H 15.0 H BUN 75 H 75 H Creatinine 3.23 H 3.39 H Est Cr Clr Drug Dosing 22.3 21.3 Est GFR ( Amer) 16.8 15.9 Est GFR (Non-Af Amer) 14.5 13.7 BUN/Creatinine Ratio 23.1 H 22.2 H Glucose 92 87 Calcium 9.8 9.5 Phosphorus 5.4 H Magnesium 1.9 Total Bilirubin 6.6 H Direct Bilirubin 2.5 H AST 33 ALT 14 Alkaline Phosphatase 60 Ammonia Total Protein 6.5 Albumin 3.6 Random Cortisol Blood Type Antibody Screen Crossmatch 07/15/21 15:39 WBC 7.33 RBC 2.70 L Hgb 8.5 L Hct 25.0 L MCV 92.6 MCH 31.5 MCHC 34.0 RDW Std Deviation 50.3 H RDW Coeff of [place] 15.2 H Plt Count 28 L* MPV Immature Gran % (Auto) 0.3 Neut % (Auto) 81.1 Lymph % (Auto) 11.1 [place] % (Auto) 2.0 Eos % (Auto) 5.2 Baso % (Auto) 0.3 Neut # (Auto) 5.95 Lymph # (Auto) 0.81 L [place] # (Auto) 0.15 Eos # (Auto) 0.38 Baso # (Auto) 0.02 Immature Gran # (Auto) 0.02 Platelet Estimate SIGNIFIC DECREASED Echinocytes 1+ Acanthocytes (Spur) PT INR Fibrinogen Fibrin Degrad Products D-Dimer Sodium Potassium Chloride Carbon Dioxide Anion Gap BUN Creatinine Est Cr Clr Drug Dosing Est GFR ( Amer) Est GFR (Non-Af Amer) BUN/Creatinine Ratio Glucose Calcium Phosphorus Magnesium Total Bilirubin Direct Bilirubin AST ALT Alkaline Phosphatase Ammonia Total Protein Albumin Random Cortisol Blood Type Antibody Screen Crossmatch PG Care Time/CCT Total # of Minutes Spent Total Time Spent with Patient: Total time spent is greater than 50% in coordination of care (as documented) at patient's floor/unit and/or counseling patient: Coding Level of Care Code 16780 Subseq Hosp Care Lvl 2 Diagnoses Acute blood loss anemia D62 Upper GI bleeding K92.2 Encephalopathy acute G93.40 Hyperkalemia E87.5 DIC (disseminated intravascular coagulation) D65 Acute kidney injury N17.9 Coagulopathy D68.9 Ascites due to alcoholic cirrhosis K70.31 COPD (chronic obstructive pulmonary disease) J44.9 Hepatic encephalopathy K72.90 Hypertension I10 Hypothyroidism E03.9 Pacemaker Z95.0 Permanent atrial fibrillation I48.21 Portal hypertension with esophageal varices K76.6; I85.00 Thrombocytopenia D69.6 UTI (urinary tract infection) N39.0 Gastric bypass status for obesity Z98.84 Hyponatremia E87.1
[2021-07-16] MEDS: ALBUMIN 25% 100 mL 25 GM/100 ML VIAL IV SCH (01:02)
[2021-07-16] MEDS: PANTOprazole 40 MG in DEXTROSE 5% 100 ML IV SCH ×3 (02:13→12:42)
[2021-07-16] MEDS: OCTREOTIDE ACETATE 500 MCG in 0.9 % SODIUM CHLORIDE 100 ML IV SCH ×2 (02:13→12:40)
[2021-07-16 06:18] LABS: INR 2.1 (0.9-1.1); Prothrombin Time 19.8 Seconds (9.0-12.0)
[2021-07-16 06:46] LABS: Basophils # (auto) 0.01 K/uL (0-0.2); Basophils % (auto) 0.2 %; Echinocytes 1+; Eosinophils # (auto) 0.23 K/uL (0-0.5); Eosinophils % (auto) 4.2 %; Hematocrit (blood only) 22.8 % (37-47); Hemoglobin 7.7 g/dL (12.0-16.0); Lymphocytes # (auto) 0.44 K/uL (1.2-3.4); Mean Corpuscular Hgb Conc 33.8 g/dL (32-36); Mean Corpuscular Volume 94.6 fL (80-100); Monocytes # (auto) 0.07 K/uL (0.11-0.59); Monocytes % (auto) 1.3 %; Neutrophils # (auto) 4.77 K/uL (1.4-6.5); Neutrophils % (auto) 86.3 %; Platelet Count 21 K/uL (130-400); Platelet Estimate SIGNIFIC DECREASED (Normal); RDW Coefficient of Variation 15.4 % (11.5-14.5); RDW Standard Deviation 51.5 fL (36.4-46.3); Red Blood Count 2.41 M/uL (4.2-5.4); Schistocytes 1+; White Blood Count 5.52 K/uL (4.8-10.8)
[2021-07-16 06:48] LABS: Albumin Level 4.1 gm/dl (3.4-5.0); BUN Creatinine Ratio 21.8 (10-20); Calcium 9.7 mg/dl (8.5-10.1); Creatinine Clr Calc Pharmacy 19.6 ml/min; Est GFR (African American) 14.2 ml/min; Est GFR (Non-African American) 12.2 ml/min; Potassium 5.3 mmol/L (3.5-5.1)
[2021-07-16 06:52] LABS: Albumin Globulin Ratio 1.5 (0.9-2); Bilirubin,Total 7.7 mg/dl (0.2-1); Globulin 2.8 gm/dl (2.5-4.0); Phosphorus 5.1 mg/dl (2.5-4.9); Total Protein 6.9 gm/dl (6.4-8.2)
--- NOTE | 2021-07-16 07:52 | Ultrasound Report ---
RENAL ULTRASOUND CLINICAL HISTORY: Decreased urine output. COMPARISON STUDY: CT of the abdomen and pelvis July 03, 2021. TECHNIQUE: Sonography of the kidneys and the urinary bladder was performed. FINDINGS: Moderate to large ascites is noted. The right kidney measures 10.7 cm in maximal dimension. There is no right hydronephrosis. No right renal calculus or mass is identified. The left kidney and bladder were not visualized. IMPRESSION: 1. No right hydronephrosis. Nonvisualization of the left kidney. 2. Moderate to large ascites. ACT 112: Negative or not required by law. Electronically signed by: Manas Montenegro M.D. 07/16/2021 7:50 AM
[2021-07-16] MEDS ORDERED: BUMETANIDE 2 MG in SYRINGE 0 ML IV ONE (08:00)
--- NOTE | 2021-07-16 08:32 | Gastroenterology Progress Note ---
Date of Service July 16, 2021 Assessment & Plan (1) Cirrhosis: Plan: Patient had dramatic mental status change yesterday and is now lethargic and not responding to questions . Per nursing no stools today and no vomiting. Continues to be hypotensive and requires pressors to maintain adequate pressure. No gross bleeding is noted at present. Ammonia level normal this morning. EGD deferred due to high risk. Continue supportive care. Follow H&H. Continue IV antibiotics. Case reviewed with Dr. Bergman. Please refer to supervising physician addendum for further recommendations. (2) Anemia: Admission and Anticipated Discharge Date Admission Date: July 04, 2021 Supervising Physician Co-Signing Physician Notes I have seen and examined the patient. I agree with note above by SARTHAK Bucio except as noted below. HPI Saurav Jenkins in room for H and P. Pt is responsive but goes right back to sleep. Denies abd pain PE Abdomen pos bs, soft, no guarding nor rebound A/P ESLD mental status changes renal failure Pt continues to deteriorate. Per nursing patient made comfort care measures now. Continue supportive care. Subjective The patient sleeping heavily this morning. Does not wake with verbal stimuli but did moan in response. Nursing reports no bowel movement through the night. Decreased urine output. No emesis. Weights are reviewed. Weight today increased from yesterday now 104.4 kg. Review of Systems Review of Systems: Unobtainable due to cognitive status Physical Exam Gastrointestinal (Abdomen): Inspection/Auscultation: + abdomen distended Percussion/Palpation: abdomen nontender, no guarding and abdomen not rigid Results & Data ([facility]) Vital Signs (Past 12 Hours) Vital Signs Temp Pulse Resp BP Pulse Ox 07/16/21 05:00 36.6 C 60 18 99/61 L 92 07/16/21 04:30 36.6 C 64 18 104/67 91 07/16/21 04:00 36.6 C 81 19 90/59 L 96 07/16/21 03:30 36.5 C 18 77/44 L 93 07/16/21 03:00 36.6 C 77 16 97 07/16/21 02:30 36.6 C 84 16 90/71 L 96 07/16/21 02:00 36.6 C 98 H 18 113/71 94 07/16/21 01:30 36.5 C 83 18 98/65 L 99 07/16/21 01:00 36.6 C 78 17 87/64 L 97 07/16/21 00:30 36.6 C 76 17 107/82 98 07/16/21 00:00 36.5 C 78 17 102/69 97 07/15/21 23:45 83 07/15/21 23:30 36.5 C 85 17 84 L 07/15/21 23:00 36.6 C 112 H 20 104/62 92 07/15/21 22:30 36.6 C 78 16 81/55 L 98 07/15/21 22:00 36.5 C 82 16 102/61 99 07/15/21 21:00 36.5 C 86 21 89/64 L 07/15/21 20:30 36.5 C 18 90/61 L Laboratory Results Laboratory Results - last 24 hr 07/13/21 07/15/21 07/15/21 09:32 10:21 15:39 WBC 7.33 RBC 2.70 L Hgb 8.5 L Hct 25.0 L MCV 92.6 MCH 31.5 MCHC 34.0 RDW Std Deviation 50.3 H RDW Coeff of Shirley 15.2 H Plt Count 28 L* Immature Gran % (Auto) 0.3 Neut % (Auto) 81.1 Lymph % (Auto) 11.1 Early % (Auto) 2.0 Eos % (Auto) 5.2 Baso % (Auto) 0.3 Neut # (Auto) 5.95 Lymph # (Auto) 0.81 L Early # (Auto) 0.15 Eos # (Auto) 0.38 Baso # (Auto) 0.02 Immature Gran # (Auto) 0.02 Platelet Estimate SIGNIFIC DECREASED Echinocytes 1+ Schistocytes PT INR Sodium 129 L Potassium 5.3 H Chloride 94 L Carbon Dioxide 20 L Anion Gap 15.0 H BUN 75 H Creatinine 3.39 H Est Cr Clr Drug Dosing 21.3 Est GFR ( Amer) 15.9 Est GFR (Non-Af Amer) 13.7 BUN/Creatinine Ratio 22.2 H Glucose 87 Calcium 9.5 Phosphorus Magnesium Total Bilirubin AST ALT Alkaline Phosphatase Ammonia Total Protein Albumin Globulin Albumin/Globulin Ratio Random Cortisol 12.40 07/16/21 07/16/21 07/16/21 05:28 05:28 05:28 WBC 5.52 RBC 2.41 L Hgb 7.7 L Hct 22.8 L MCV 94.6 MCH 32.0 MCHC 33.8 RDW Std Deviation 51.5 H RDW Coeff of Shirley 15.4 H Plt Count 21 L* Immature Gran % (Auto) 0.0 Neut % (Auto) 86.3 Lymph % (Auto) 8.0 Early % (Auto) 1.3 Eos % (Auto) 4.2 Baso % (Auto) 0.2 Neut # (Auto) 4.77 Lymph # (Auto) 0.44 L Early # (Auto) 0.07 L Eos # (Auto) 0.23 Baso # (Auto) 0.01 Immature Gran # (Auto) 0.00 Platelet Estimate SIGNIFIC DECREASED Echinocytes 1+ Schistocytes 1+ PT 19.8 H INR 2.1 H Sodium 127 L Potassium 5.3 H Chloride 92 L Carbon Dioxide 21 Anion Gap 14.0 H BUN 81 H Creatinine 3.72 H D Est Cr Clr Drug Dosing 19.6 Est GFR ( Amer) 14.2 Est GFR (Non-Af Amer) 12.2 BUN/Creatinine Ratio 21.8 H Glucose 76 Calcium 9.7 Phosphorus 5.1 H Magnesium 2.0 Total Bilirubin 7.7 H AST 32 ALT 17 Alkaline Phosphatase 58 Ammonia Total Protein 6.9 Albumin 4.1 Globulin 2.8 Albumin/Globulin Ratio 1.5 Random Cortisol 07/16/21 05:31 WBC RBC Hgb Hct MCV MCH MCHC RDW Std Deviation RDW Coeff of Shirley Plt Count Immature Gran % (Auto) Neut % (Auto) Lymph % (Auto) Early % (Auto) Eos % (Auto) Baso % (Auto) Neut # (Auto) Lymph # (Auto) Early # (Auto) Eos # (Auto) Baso # (Auto) Immature Gran # (Auto) Platelet Estimate Echinocytes Schistocytes PT INR Sodium Potassium Chloride Carbon Dioxide Anion Gap BUN Creatinine Est Cr Clr Drug Dosing Est GFR ( Amer) Est GFR (Non-Af Amer) BUN/Creatinine Ratio Glucose Calcium Phosphorus Magnesium Total Bilirubin AST ALT Alkaline Phosphatase Ammonia 14.0 Total Protein Albumin Globulin Albumin/Globulin Ratio Random Cortisol Diagnostic Findings Renal Ultrasound 07/15/21 15:17 RENAL ULTRASOUND CLINICAL HISTORY: Decreased urine output. COMPARISON STUDY: CT of the abdomen and pelvis July 03, 2021. TECHNIQUE: Sonography of the kidneys and the urinary bladder was performed. FINDINGS: Moderate to large ascites is noted. The right kidney measures 10.7 cm in maximal dimension. There is no right hydronephrosis. No right renal calculus or mass is identified. The left kidney and bladder were not visualized. IMPRESSION: 1. No right hydronephrosis. Nonvisualization of the left kidney. 2. Moderate to large ascites. ACT 112: Negative or not required by law. Electronically signed by: Manas Montenegro M.D. 07/16/2021 7:50 AM
[2021-07-16] MEDS: THIAMINE HCL 200 MG in SODIUM CHLORIDE 0.9% 50 ML IV SCH (08:44)
[2021-07-16] MEDS: MIDODRINE HCL 10 MG TAB PO SCH ×2 (08:45→12:40)
[2021-07-16] MEDS: FOLIC ACID 1 MG TAB PO SCH (08:46)
[2021-07-16] MEDS: FLUTICASONE/VILANTEROL 100/25MCG 14 PUFFS/INHALER INH SCH (08:48)
[2021-07-16] MEDS: MICONAZOLE NITRATE POWDER 43 GM EXT SCH (08:48)
[2021-07-16] MEDS: DOCUSATE SODIUM/SENNA 50/8.6MG TAB PO SCH (09:02)
[2021-07-16] MEDS: LACTULOSE SYRUP 20 GM/30 ML UDC PO SCH ×2 (09:02→15:40)
[2021-07-16] MEDS ORDERED: D5W NORMOSOL-R 1,000 ML IV SCH (10:00)
--- NOTE | 2021-07-16 10:05 | Nephrology Progress Note ---
Date of Service July 16, 2021 Assessment & Plan (1) Acute kidney injury: (2) Ascites: (3) Hepatic encephalopathy: (4) Ascites due to alcoholic cirrhosis: Plan: 61-year-old female with end stage liver disease admitted to the hospital on 07/02/2021 with anasarca. found to have hepatitic encephalopathy and AK I, creatinine was close to 3 with baseline creatinine before around 1.1. Also noted to have hyponatremia over last few months and during this hospitalization serum sodium has been around 132. Eventually renal function improved and creatinine was down to 1.6 however over last few days renal function worsened. Albumin has been low. Progressive worsening of renal function with hyperkalemia, anemia and thrombocytopenia. Blood pressure remained low and continues to be encephalopathic. -- start on d5w with bicarb 80 mL/hour. Monitor urine output. if renal function worsened and patient remained oliguric with her underlying advanced liver disease, she would not be a candidate for long-term dialysis. may need to consider comfort care/ hospice. -- on midodrine, octreotide and albumin -- Monitor intake and output -- overall prognosis remains guarded will follow Admission and Anticipated Discharge Date Admission Date: July 04, 2021 Juliette Amado was seen and examined in her room this morning. She remains somewhat confused, denied any specific symptoms Except feeling thirsty. Has been oligo anuric,elevated BUN/Cr with multiple electrolyte abnormality including hyponatremia, hyperkalemia and metabolic acidosis. . Review of Systems Review of Systems: Detailed review of system was not possible due to confusion. lethargy. Physical Exam Constitutional: WD/WN, vitals as above + ill appearing and + lethargic; no acute distress Neck: normal visual inspection Respiratory: normal respiratory effort; no respiratory distress Auscultation: + diminished lung sounds Cardiovascular: Rate/Rhythm: regular rate and regular rhythm Heart Sounds: normal S1 and normal S2 Extremities: no edema Gastrointestinal (Abdomen): Inspection/Auscultation: + abdomen distended and normal bowel sounds Skin: normal turgor; no rashes Neurologic: awake; no focal motor deficits Psychiatric: Orientation: alert Results & Data ([facility]) Vital Signs (Past 12 Hours) Vital Signs Temp Pulse Resp BP Pulse Ox 07/16/21 09:30 36.3 C L 81 13 91/61 L 99 07/16/21 09:00 36.3 C L 90 19 81/61 L 89 L 07/16/21 08:30 36.3 C L 74 14 92/66 L 98 07/16/21 08:00 36.4 C L 74 19 96/63 L 89 L 07/16/21 07:30 36.4 C L 80 14 91/56 L 99 07/16/21 07:00 36.4 C L 69 12 99 07/16/21 06:30 36.4 C L 80 16 92/56 L 100 07/16/21 06:00 36.5 C 99 H 14 136/100 98 07/16/21 05:30 36.6 C 71 18 104/54 L 91 07/16/21 05:00 36.6 C 60 18 99/61 L 92 07/16/21 04:30 36.6 C 64 18 104/67 91 07/16/21 04:00 36.6 C 81 19 90/59 L 96 07/16/21 03:30 36.5 C 18 77/44 L 93 07/16/21 03:00 36.6 C 77 16 97 07/16/21 02:30 36.6 C 84 16 90/71 L 96 07/16/21 02:00 36.6 C 98 H 18 113/71 94 07/16/21 01:30 36.5 C 83 18 98/65 L 99 07/16/21 01:00 36.6 C 78 17 87/64 L 97 07/16/21 00:30 36.6 C 76 17 107/82 98 07/16/21 00:00 36.5 C 78 17 102/69 97 07/15/21 23:45 83 07/15/21 23:30 36.5 C 85 17 84 L 07/15/21 23:00 36.6 C 112 H 20 104/62 92 07/15/21 22:30 36.6 C 78 16 81/55 L 98 PG Care Time/CCT Total # of Minutes Spent Total Time Spent with Patient: Total time spent is greater than 50% in coordination of care (as documented) at patient's floor/unit and/or counseling patient: Coding Level of Care Code 48250 Subseq Hosp Care Lvl 3 Diagnoses Acute kidney injury N17.9 Ascites R18.8 Hepatic encephalopathy K72.90 Ascites due to alcoholic cirrhosis K70.31
[2021-07-16] MEDS: rifAXIMin 550 MG TABLET PO SCH (10:12)
--- NOTE | 2021-07-16 11:52 | Critical Care Progress Note ---
Date of Service July 16, 2021 Assessment & Plan (1) Admitted to intensive care unit: Plan: Reason Critically Ill: 61-year-old female with acute blood loss anemia in the setting of likely upper GI bleeding complicated by ongoing thrombocytopenia with concerns for new onset DIC, hyperkalemia, hyponatremia, CHARLI with concerns for hepatorenal syndrome. NEURO - Possible delirium/metabolic encephalopathy. Improving. CARDIAC/VASCULAR - * Hypertension, A. fib: * Currently holding antihypertensive medications secondary to labile blood pressures. * Permanent A. fib with pacer in place. * Continue phenylephrine as needed to maintain mean arterial pressures over 65. No significant change in urine output with keeping map over 70. * Continue midodrine 10 mg TID RESPIRATORY - * COPD: * No issues presently * Continue breo GI/NUTRITION - * Likely UGIB: * Given concerns for UGIB in the chronic renal failure patient w/ thrombocytopenia requiring large amounts of blood products (specifically platelets), will reach out to [facility] for transfer to higher level of care for evaluation by hepatology/transplant (which she is scheduled for in July) as well as added utility of advanced blood bank support. * Status post 1 unit packed RBC and 1 unit platelets. 10 mg vitamin K given. Continue Protonix and octreotide. INR remains 2.1 today. * Gastroenterology not interested in pursuing EGD at this time due to patient's poor clinical status. * Cirrhosis w/ Ascites: * Initially tapped on 07/04 for a total of 3L. No samples sent at that time. * continue lactulose and xifaxin RENAL/LYTES - * CHARLI vs. HRS: * Poor candidate for dialysis per nephrology. Patient with worsening renal function and oliguria. Hyperkalemia present as well. Will initiate low- dose fluids. Consider transitioning to bicarbonate. Prognosis is very poor. Palliative care involved. * Renal ultrasound with no evidence of obstruction - * Thompson in place - Strict I&Os. ENDO - * No h/o DM * BSGs per unit protocol. ISS --> gtt per unit policy. * Hypothyroidism: * Continue home dosing of Levothyroxine. HEME - * Acute blood loss anemia: * Likely 2/2 UGIB. * Concerning in the patient w/ worsening thrombocytopenia and concerns for DIC. Schistocytes present on peripheral smear. Will consult hematology. We will hold on cryoprecipitate is no active bleeding seen at this time. ?TTP/atypical HUS, ?ADAMS13 * Received 1 U PRBCs. * Recieved 1 U platelets. * Trend H&H/Plt - Transfuse as needed. * [facility] contacted last night due to concerns of limited blood bank in [facility] ID - * ESBL UTI: * Sensitive to Cipro. Cipro effective in covering for SBP as well. LINES/IV ACCESS - * PIVs x3 * Thompson * Prognosis remains very poor. I have personally spent 40 minutes of critical care time in the direct management of this patient. This is a life/limb threatening event. This includes time spent evaluating patient, direct bedside care, chart review, placing orders, interpretation of diagnostic studies, discussion with consultants, patient, and family members, as well as other required patient management activities. This time is exclusive of all separately billable procedures, and teaching time and separate from and in addition to any other critical care service time. Thank you for allowing us to participate in the care of this patient. (2) Upper GI bleeding: (3) DIC (disseminated intravascular coagulation): (4) Acute blood loss anemia: (5) UTI (urinary tract infection): (6) Encephalopathy: (7) Ascites: (8) Anasarca: (9) Hypoalbuminemia: (10) Thrombocytopenia: (11) Cirrhosis: Admission and Anticipated Discharge Date Admission Date: July 04, 2021 Subjective Patient seen and examined. Less responsive today as compared to yesterday. Off of phenylephrine this morning and afternoon, but blood pressures decreased with systolic blood pressures in the 70s. P.o. intake has been poor. Review of Systems Review of Systems: Unobtainable due to cognitive status Physical Exam Physical Exam: Constitutional: Frail and elderly appearing female in mild distress. Eyes: Pupils are equal round and reactive to light. Conjunctivae are normal. Anicteric sclera. Ears, nose, mouth and throat: No obvious deformities. Neck: Trachea is midline. Visual inspection is normal. Respiratory: Diminished lung sounds bilaterally. Cardiovascular: Regular rate and rhythm. No murmurs. Trace edema. Gastrointestinal: Abdomen is mildly distended. Normal active bowel sounds. No tenderness to palpation. Musculoskeletal:Patient is able to move all extremities. Skin: No rashes, warm dry and intact. Neurologic: No obvious focal neurological deficits seen. Psychiatric: Lethargic. Results & Data Results & Data ([facility]) Vital Signs (Past 12 Hours) Vital Signs Temp Pulse Resp BP Pulse Ox 07/16/21 10:14 84 07/16/21 09:30 36.3 C L 81 13 91/61 L 99 07/16/21 09:00 36.3 C L 90 19 81/61 L 89 L 07/16/21 08:30 36.3 C L 74 14 92/66 L 98 07/16/21 08:00 36.4 C L 74 19 96/63 L 89 L 07/16/21 07:30 36.4 C L 80 14 91/56 L 99 07/16/21 07:00 36.4 C L 69 12 99 07/16/21 06:30 36.4 C L 80 16 92/56 L 100 07/16/21 06:00 36.5 C 99 H 14 136/100 98 07/16/21 05:30 36.6 C 71 18 104/54 L 91 07/16/21 05:00 36.6 C 60 18 99/61 L 92 07/16/21 04:30 36.6 C 64 18 104/67 91 07/16/21 04:00 36.6 C 81 19 90/59 L 96 07/16/21 03:30 36.5 C 18 77/44 L 93 07/16/21 03:00 36.6 C 77 16 97 07/16/21 02:30 36.6 C 84 16 90/71 L 96 07/16/21 02:00 36.6 C 98 H 18 113/71 94 07/16/21 01:30 36.5 C 83 18 98/65 L 99 07/16/21 01:00 36.6 C 78 17 87/64 L 97 07/16/21 00:30 36.6 C 76 17 107/82 98 07/16/21 00:00 36.5 C 78 17 102/69 97 07/15/21 23:45 83 vital signs, labs and imaging personally reviewed Coding Level of Care Code Critical Care 1st 30-74 mins Diagnoses Admitted to intensive care unit Z78.9 Upper GI bleeding K92.2 DIC (disseminated intravascular coagulation) D65 Acute blood loss anemia D62 UTI (urinary tract infection) N39.0 Encephalopathy G93.40 Ascites R18.8 Anasarca R60.1 Hypoalbuminemia E88.09 Thrombocytopenia D69.6 Cirrhosis K74.60 Time Spent (min) 40
--- NOTE | 2021-07-16 12:47 | Palliative Care Progress Note ---
Date of Service July 16, 2021 Assessment & Plan (1) Palliative care encounter: Plan: I met with Ingris in her room. She is more lethargic than yesterday. Unfortunately, she has increasing encephalopathy that does not warrant her to have decision making capacity regarding goals of care. I did call her niece and dedicated decision maker, Alice at [phone] and she will come in this afternoon to discuss a transition to NEUROLOGY STROKE PHYSICIAN. As previously mentioned, official paperwork was completed by [facility] on 07/08 designating her to be her decision maker in the event she was unable. Pt is confirmed to be a DNR/DNI. Update I met with the patients niroyal and decision maker, Alice, along with the patients sister Judith. Both were in full agreement that her quality of life is extremely poor and if she were able to make reliable decisions she would not want to continue living the way that she is. Full transition to NEUROLOGY STROKE PHYSICIAN will occur today with non essential medications being discontinued, along with all blood draws and aggressive treatment measures. Due to patients worsening renal failure, will order Dilaudid PRN for air hunger/comfort. Low threshold to start a Dilaudid infusion for comfort. Case discussed with nursing, human development professor, and hospitalist. (2) Liver cirrhosis: Plan: I asked her niece if she was established on a liver transplant list and she said that she had done the questioners at [facility], but never was officially on a list that she knows of. Pt now with worsening renal failure/HRS. Today creatinine is 3.72 Patient is anuric at this point. Pt is jaundiced. Discussed unlikely benefit or toleration of HD with this individual with the patients magnoroyal, Alice. Discussed transfer for CRRT ; however, if not on a transplant list at this time, unlikely benefit. (3) Ascites: (4) Encephalopathy: Admission and Anticipated Discharge Date Admission Date: July 04, 2021 Subjective Patient seen at her bedside and less responsive today than yesterday. She opens her eyes briefly, but not reliable to have a meaningful conversation. Pt remains overall hypotensive with no urine output and kidney failure. poor oral intake and nutrition status. See A/P for further details. Review of Systems Review of Systems: Carter System Assessment Scale: Pain: 0/3 Tiredness: 3/3 by observation Lack of Appetite: 3/3 by observation Anxiety: 0/3 SOB: 0/3 Palliative Performance Scale: 20% Physical Exam Constitutional: + thin and + frail appearing ENMT: Mouth: + dry oral mucous membranes Respiratory: normal respiratory effort Auscultation: lungs clear to auscultation bilaterally Cardiovascular: Rate/Rhythm: regular rate and regular rhythm Heart Sounds: normal S1 and normal S2 Extremities: normal capillary refill Gastrointestinal (Abdomen): Inspection/Auscultation: abdomen normal to inspection Percussion/Palpation: abdomen soft and + ascites Skin: + jaundice Psychiatric: Orientation: alert and oriented to person Insight: + poor insight Judgement: + poor judgement Results & Data ([facility]) Vital Signs (Past 12 Hours) Vital Signs Temp Pulse Resp BP Pulse Ox 07/16/21 10:14 84 07/16/21 09:30 36.3 C L 81 13 91/61 L 99 07/16/21 09:00 36.3 C L 90 19 81/61 L 89 L 07/16/21 08:30 36.3 C L 74 14 92/66 L 98 07/16/21 08:00 36.4 C L 74 19 96/63 L 89 L 07/16/21 07:30 36.4 C L 80 14 91/56 L 99 07/16/21 07:00 36.4 C L 69 12 99 07/16/21 06:30 36.4 C L 80 16 92/56 L 100 07/16/21 06:00 36.5 C 99 H 14 136/100 98 07/16/21 05:30 36.6 C 71 18 104/54 L 91 07/16/21 05:00 36.6 C 60 18 99/61 L 92 07/16/21 04:30 36.6 C 64 18 104/67 91 07/16/21 04:00 36.6 C 81 19 90/59 L 96 07/16/21 03:30 36.5 C 18 77/44 L 93 07/16/21 03:00 36.6 C 77 16 97 07/16/21 02:30 36.6 C 84 16 90/71 L 96 07/16/21 02:00 36.6 C 98 H 18 113/71 94 07/16/21 01:30 36.5 C 83 18 98/65 L 99 07/16/21 01:00 36.6 C 78 17 87/64 L 97 PG Care Time/CCT Total # of Minutes Spent Total Time Spent with Patient: Total time spent is greater than 50% in coordination of care (as documented) at patient's floor/unit and/or counseling patient: 45 minutes Coding Level of Care Code 25197 Subseq Hosp Care Lvl 3 Diagnoses Palliative care encounter Z51.5 Liver cirrhosis K74.60 Ascites R18.8 Encephalopathy G93.40 Time Spent (min) 45
[2021-07-16] MEDS ORDERED: LORazepam 1 MG/2 ML VIAL IV PRN (15:34)
[2021-07-16] MEDS ORDERED: GLYCOPYRROLATE 0.2 MG/ML VIAL IV PRN (15:34)
[2021-07-16] MEDS: PHENYLEPHRINE HCL 20 MG in SODIUM CHLORIDE 0.9% 500 ML IV SCH ×2 (15:39→15:40)
--- NOTE | 2021-07-16 15:54 | Consultation Report ---
HEMATOLOGY CONSULTATION DATE OF SERVICE: 07/16/2021 REASON FOR CONSULTATION: Consumptive coagulopathy/disseminated intravascular coagulation. HISTORY OF PRESENT ILLNESS: Ingris is a critically ill 61-year-old female patient with multiple comorbid issues including alcoholic cirrhosis, CHF, coronary artery disease, and COPD, brought to the Emergency Room apparently by her daughter in progressively ill over the past 2-3 weeks. The patient was minimally verbal at the time of admission and could not provide pertinent information moving forward. Apparently, she follows with a liver specialist in the [facility] system . During the course of hospitalization, the patient had developed acute blood loss anemia, likely due to upper GI bleeding; however, because of her critical state, endoscopy procedures have not been performed. According to the critical care note, patient had received 3 units of packed RBCs, 2 units of platelets, and 1 unit of cryoprecipitate. Vitamin K was also administered on 07/15. Review of present peripheral blood counts, WBCs 5520, hemoglobin 7.7, platelet count of 21,000. Peripheral smear was examined prior to bedside visit revealing a few schistocytes with a predominance of rosita and spur cells, which are commonly seen in the setting of chronic liver disease. Coagulation parameters were also markedly abnormal with current PT of 19.8 seconds, INR of 2.1, fibrinogen 116. Fibrin split products and D-dimer were both markedly elevated. Coagulation parameters strongly suggestive of consumptive coagulopathy/disseminated intravascular coagulation. Unfortunately, the patient is presently encephalopathic and cannot provide additional helpful information. PAST MEDICAL HISTORY: Consistent with anxiety, atrial fibrillation, congestive heart failure, alcoholic cirrhosis, COPD, fibromyalgia, osteoarthritis and status post pacemaker placement. PAST SURGICAL HISTORY: Gastric bypass surgery, left shoulder repair, cataract surgery, history of cholecystectomy. MEDICATIONS PRIOR TO ADMISSION: Include budesonide 2 puffs inhaled b.i.d., folic acid 1 mg p.o. daily, furosemide 80 mg p.o. b.i.d., gabapentin 400 mg p.o. q.i.d., levothyroxine 50 mcg p.o. q.a.m., omeprazole 20 mg p.o. daily, propranolol 20 mg p.o. b.i.d., rifaximin 550 mg p.o. b.i.d., spironolactone 50 mg p.o. b.i.d., vitamin B12 one tablet p.o. daily. ALLERGIES: KEPPRA. SOCIAL HISTORY: The patient lives alone. Apparently, she abuses alcohol. She is not a smoker or illicit drug user. FAMILY HISTORY: Unobtainable. REVIEW OF SYSTEMS: Unobtainable because of the patient's mental status. PHYSICAL EXAMINATION: GENERAL: A 61-year-old obese female, appears much older than her stated age, does arouse to verbal stimuli. Rambling, incoherent conversation. VITAL SIGNS: Temperature 36.3, pulse 84, respiratory rate 13, blood pressure 91/61. SKIN: Scattered ecchymoses. No rashes or lesions. Could not appreciate a petechial rash. HEENT: Atraumatic with the exception of a couple of facial abrasions. Eyes: PERRLA. EOMI. Sclerae are nonicteric. Nares patent. Throat clear. Tongue is coated. Mucous membranes are dry. NECK: Bull neck. HEART: Regular rate and rhythm. No clicks, rubs, or murmurs. LUNGS: Clear to auscultation bilaterally. ABDOMEN: Obese. Palpable hepatomegaly. No rigidity or guarding. EXTREMITIES: Trace to 1+ peripheral edema bilaterally. NEUROLOGIC: Focally intact. LABORATORY DATA: As per HPI. Sodium 127, potassium 5.3, chloride 92, carbon dioxide 21, BUN 81, creatinine 3.72, phosphorus 5.1, total bilirubin 7.7. IMPRESSION: 1. Coagulation profile consistent with disseminated intravascular coagulation most likely attributable to ongoing bleeding. 2. Hypertension, atrial fibrillation. 3. Chronic obstructive pulmonary disease. 4. Possible hepatorenal syndrome. 5. Acute renal injury. 6. Acute blood loss anemia. 7. Alcoholic cirrhosis. PLAN: The patient was seen and examined at bedside. Obviously, has multiple comorbid issues, which make the prospect of her survival bleak. I agree with the intervention so far. Peripheral smear was reviewed. There are few schistocytes present, which could represent underlying TTP. Depending on how aggressive the family would like to pursue care, the patient should be transferred to a tertiary center to provide plasmapheresis. Obtaining [id number] would not be helpful as result would be delayed and probably would not be resulted for a couple of days. Thus, if the decision is to aggressively manage Ms. Reid, she should be transferred within the next 24 hours. According to nursing, bleeding has subsided. Gastroenterology still is not willing to proceed with scoping and rightfully so in the current state. If bleeding would resume, agree cryoprecipitate, perhaps FFP and Aminocaproic acid may prove to be helpful. We will discuss further with the managing hospitalist. I will continue to follow her on a daily basis until a disposition is established. Thank you very much for allowing me to participate in her care. Job ID: [id number] MTDD
--- NOTE | 2021-07-16 21:08 | Hospitalist Progress Note ---
Date of Service July 16, 2021 Assessment & Plan (1) Acute blood loss anemia: Plan: presumed 2nd to upper GI bleeding. PPI/octreotide drips stopped. H/H have continued to drift downward despite transfusional support and the above drips. Transitioning to comfort care. (2) Upper GI bleeding: Plan: Esophageal varices vs PUD vs gastritis vs AVMs vs combination of factors vs other. Drips stopped; transition to comfort care. (3) Encephalopathy acute: Plan: Likely multifactorial - worse today; uremia, etc all at play. (4) Hyperkalemia: Plan: 2nd to CHARLI. Ongoing despite supportive care. Transition to comfort care - no Rx. (5) DIC (disseminated intravascular coagulation): Plan: Possible. Coags high, d-dimer very high, FDP high, platelets low, active GI bleeding. Transfusional support - PRBCs, platelets, cryo; +/- FFP. At minimum her advanced cirrhosis causes synthetic dysfunction leading to loss of coagulation factor production, fibrinogen, etc. (6) Acute kidney injury: Plan: Likely hepatorenal syndrome type 1. Oliguric. Has not improved despite maximal medical efforts. She is not an HD candidate. (7) Coagulopathy: Plan: 2nd to advanced cirrhosis ongoing (8) Ascites due to alcoholic cirrhosis: Plan: ongoing (9) COPD (chronic obstructive pulmonary disease): Plan: NC O2 for comfort (10) Hepatic encephalopathy: (11) Hypertension: Plan: h/o (12) Hypothyroidism: Plan: stop synthroid (13) Pacemaker: (14) Permanent atrial fibrillation: (15) Portal hypertension with esophageal varices: (16) Thrombocytopenia: Plan: SEVERE 2nd to advanced cirrhosis cannot exclude DIC (17) UTI (urinary tract infection): Plan: treated while here (18) Gastric bypass status for obesity: (19) Hyponatremia: Plan: 2nd to Acute renal failure ongoing Plan: remains critically ill, no response to maximal medical efforts, transitioning to comfort care pathway appreciate palliative, ICU, GI, nephro assistance during her stay will update her niece tomorrow Admission and Anticipated Discharge Date Admission Date: July 04, 2021 Subjective I saw the patient after she was moved to med/surg from the ICU on comfort care measures. She was lethargic - did wake up some - but was confused, and speech was difficult to understand. She had visible asterixis and myoclonus. Unable to provide any meaningful history or ROS. Review of Systems Review of Systems: Unobtainable due to cognitive status and Unobtainable due to reduced consciousness Physical Exam Physical Exam: gen - confused/lethargic, toxic, no distress skin - ecchymoses in various locations neck - no JVD mouth - MM remain dry; dried blood on lips heart - RR, irregular, s1 s2, no murmur lungs - decreased BS bases - worse today abd - marked distension with ascites - worse today, BS+, NT; scar tissue RUQ? ext - 2-3+ pitting edema all 4 extremities, pulses 1+ b/l neuro - asterixis present Results & Data Results & Data ([facility]) Vital Signs (Past 12 Hours) Vital Signs Temp Pulse Resp BP Pulse Ox 07/16/21 12:00 36.1 C L 84 83/58 L 98 07/16/21 10:14 84 07/16/21 10:00 36.3 C L 80 18 93/68 L 98 07/16/21 09:30 36.3 C L 81 13 91/61 L 99 Laboratory Results Laboratory Results - last 24 hr 07/16/21 07/16/21 07/16/21 05:28 05:28 05:28 WBC 5.52 RBC 2.41 L Hgb 7.7 L Hct 22.8 L MCV 94.6 MCH 32.0 MCHC 33.8 RDW Std Deviation 51.5 H RDW Coeff of Shirley 15.4 H Plt Count 21 L* Immature Gran % (Auto) 0.0 Neut % (Auto) 86.3 Lymph % (Auto) 8.0 [place] % (Auto) 1.3 Eos % (Auto) 4.2 Baso % (Auto) 0.2 Neut # (Auto) 4.77 Lymph # (Auto) 0.44 L [place] # (Auto) 0.07 L Eos # (Auto) 0.23 Baso # (Auto) 0.01 Immature Gran # (Auto) 0.00 Platelet Estimate SIGNIFIC DECREASED Echinocytes 1+ Schistocytes 1+ PT 19.8 H INR 2.1 H Sodium 127 L Potassium 5.3 H Chloride 92 L Carbon Dioxide 21 Anion Gap 14.0 H BUN 81 H Creatinine 3.72 H D Est Cr Clr Drug Dosing 19.6 Est GFR ( Amer) 14.2 Est GFR (Non-Af Amer) 12.2 BUN/Creatinine Ratio 21.8 H Glucose 76 Calcium 9.7 Phosphorus 5.1 H Magnesium 2.0 Total Bilirubin 7.7 H AST 32 ALT 17 Alkaline Phosphatase 58 Ammonia Total Protein 6.9 Albumin 4.1 Globulin 2.8 Albumin/Globulin Ratio 1.5 07/16/21 05:31 WBC RBC Hgb Hct MCV MCH MCHC RDW Std Deviation RDW Coeff of Shirley Plt Count Immature Gran % (Auto) Neut % (Auto) Lymph % (Auto) [place] % (Auto) Eos % (Auto) Baso % (Auto) Neut # (Auto) Lymph # (Auto) [place] # (Auto) Eos # (Auto) Baso # (Auto) Immature Gran # (Auto) Platelet Estimate Echinocytes Schistocytes PT INR Sodium Potassium Chloride Carbon Dioxide Anion Gap BUN Creatinine Est Cr Clr Drug Dosing Est GFR ( Amer) Est GFR (Non-Af Amer) BUN/Creatinine Ratio Glucose Calcium Phosphorus Magnesium Total Bilirubin AST ALT Alkaline Phosphatase Ammonia 14.0 Total Protein Albumin Globulin Albumin/Globulin Ratio PG Care Time/CCT Total # of Minutes Spent Total Time Spent with Patient: Total time spent is greater than 50% in coordination of care (as documented) at patient's floor/unit and/or counseling patient: Coding Level of Care Code 62851 Subseq Hosp Care Lvl 1 Diagnoses Acute blood loss anemia D62 Upper GI bleeding K92.2 Encephalopathy acute G93.40 Hyperkalemia E87.5 DIC (disseminated intravascular coagulation) D65 Acute kidney injury N17.9 Coagulopathy D68.9 Ascites due to alcoholic cirrhosis K70.31 COPD (chronic obstructive pulmonary disease) J44.9 Hepatic encephalopathy K72.90 Hypertension I10 Hypothyroidism E03.9 Pacemaker Z95.0 Permanent atrial fibrillation I48.21 Portal hypertension with esophageal varices K76.6; I85.00 Thrombocytopenia D69.6 UTI (urinary tract infection) N39.0 Gastric bypass status for obesity Z98.84 Hyponatremia E87.1
[2021-07-16] MEDS: HYDROmorphone INJ 0.5 MG/0.5 ML SYR IV PRN (21:47)
--- NOTE | 2021-07-17 07:47 | Gastroenterology Progress Note ---
Date of Service July 17, 2021 Assessment & Plan (1) Liver cirrhosis: Plan: Patient has end-stage liver disease. She continues to deteriorate and has now been made comfort measures. Continue supportive care. GI will sign off at this time, please reconsult if needed. Please refer to supervising physician addendum for further recommendations. Admission and Anticipated Discharge Date Admission Date: July 04, 2021 Supervising Physician Co-Signing Physician Notes I have seen and examined the patient. I agree with note above by SARTHAK Bucio except as noted below. HPI Pt awake and alert at present PE Abdomen pos bs, soft, no guarding nor rebound A/P ESLD comfort care measures. Will sign off. Subjective The patient is lying in bed sleeping. She does not wake with verbal stimuli. She is snoring. Nursing documentation is reviewed. She is now comfort measures. She was medicated for pain once through the night. Review of Systems Review of Systems: Unobtainable due to cognitive status Physical Exam Constitutional: + ill appearing (chronically) Gastrointestinal (Abdomen): Inspection/Auscultation: + abdomen distended Percussion/Palpation: no guarding and abdomen not rigid
--- NOTE | 2021-07-17 15:52 | Palliative Care Progress Note ---
Date of Service July 17, 2021 Assessment & Plan (1) Palliative care encounter: Plan: She had hydromorphone x 1 for pain but reports being comfortable at this time. Continue prn dosing. Spoke with granddaughter. Family pleased to have time to talk with her. Continue comfort measures. Admission and Anticipated Discharge Date Admission Date: July 04, 2021 Subjective Awake. Denies pain. Complains of cold feet. Visiting with family members Review of Systems Review of Systems: Independence Symptom Assessment Scale Pain 0/3 Dyspnea 0/3 Anxiety 0/3 Nausea 0/3 Fatigue 2/3 Palliative Performance Score 30% Physical Exam Constitutional: + ill appearing Respiratory: normal respiratory effort; no labored breathing Cardiovascular: LE edema Skin: warm and dry PG Care Time/CCT Total # of Minutes Spent Total Time Spent with Patient: Total time spent is greater than 50% in coordination of care (as documented) at patient's floor/unit and/or counseling patient: Coding Level of Care Code 22247 Subseq Hosp Care Lvl 2 Diagnoses Palliative care encounter Z51.5
[2021-07-17] MEDS: HYDROmorphone INJ 0.5 MG/0.5 ML SYR IV PRN ×2 (16:57→21:46)
--- NOTE | 2021-07-17 20:42 | Hospitalist Progress Note ---
Date of Service July 17, 2021 Assessment & Plan (1) Acute blood loss anemia: Plan: presumed 2nd to upper GI bleeding, potentially even variceal in nature. PPI/octreotide drips stopped - transitioned to comfort care. (2) Upper GI bleeding: Plan: Esophageal varices vs PUD vs gastritis vs AVMs vs combination of factors vs other. Drips stopped; transitioned to comfort care. (3) Encephalopathy acute: Plan: multifactorial having a good day today with family at bedside. however, with worsening uremia, suspect things will worsen next 2-3 days. (4) Hyperkalemia: Plan: 2nd to CHARLI. Transition to comfort care - no Rx. (5) DIC (disseminated intravascular coagulation): Plan: Possible. Coags high, d-dimer very high, FDP high, platelets low, active GI bleeding. Had received transfusional support for such including PRBCs, platelets, cryo; +/- FFP. At minimum her advanced cirrhosis caused synthetic dysfunction leading to loss of coagulation factor production, fibrinogen, etc. (6) Acute kidney injury: Plan: Likely hepatorenal syndrome type 1. severely Oliguric. Had not improved despite maximal medical efforts. Was not an HD candidate. (7) Coagulopathy: Plan: 2nd to advanced cirrhosis (8) Ascites due to alcoholic cirrhosis: Plan: ongoing severe she reports no pain today (9) COPD (chronic obstructive pulmonary disease): Plan: NC O2 for comfort (10) Hepatic encephalopathy: (11) Hypertension: Plan: h/o (12) Hypothyroidism: (13) Pacemaker: (14) Permanent atrial fibrillation: (15) Portal hypertension with esophageal varices: (16) Thrombocytopenia: Plan: SEVERE was 2nd to advanced cirrhosis could not exclude DIC (17) UTI (urinary tract infection): Plan: treated while here (18) Gastric bypass status for obesity: (19) Hyponatremia: Plan: cont comfort care pathway much appreciation to palliative care team magnoece extensively updated this afternoon during her visit Admission and Anticipated Discharge Date Admission Date: July 04, 2021 Subjective Pt was awake during the visit. Confused - thought she had "met me in [place]" and also believed she was indeed in [place]. Her sister & niece were at bedside. Apparently Ms Reid was laughing/joking with them throughout the afternoon. Next to no oral intake. UOP <50cc today. Pt denies pain in any location. Review of Systems Review of Systems: CV - no pain pulm - denies dyspnea GI - denies pain Physical Exam Physical Exam: gen - more awake today but confused, no distress skin - ecchymoses in various locations neck - no JVD mouth - MM remain dry heart - RR, irregular, s1 s2, no murmur lungs - decreased BS bases abd - marked distension with ascites; NT ext - 2-3+ pitting edema all 4 extremities, pulses <1+ b/l, cool feet neuro - asterixis (mild) PG Care Time/CCT Total # of Minutes Spent Total Time Spent with Patient: Total time spent is greater than 50% in coordination of care (as documented) at patient's floor/unit and/or counseling patient: Coding Level of Care Code 08338 Subseq Hosp Care Lvl 1 Diagnoses Acute blood loss anemia D62 Upper GI bleeding K92.2 Encephalopathy acute G93.40 Hyperkalemia E87.5 DIC (disseminated intravascular coagulation) D65 Acute kidney injury N17.9 Coagulopathy D68.9 Ascites due to alcoholic cirrhosis K70.31 COPD (chronic obstructive pulmonary disease) J44.9 Hepatic encephalopathy K72.90 Hypertension I10 Hypothyroidism E03.9 Pacemaker Z95.0 Permanent atrial fibrillation I48.21 Portal hypertension with esophageal varices K76.6; I85.00 Thrombocytopenia D69.6 UTI (urinary tract infection) N39.0 Gastric bypass status for obesity Z98.84 Hyponatremia E87.1
--- NOTE | 2021-07-18 12:32 | Palliative Care Progress Note ---
Date of Service July 18, 2021 Assessment & Plan (1) Back pain: Plan: Pain more frequent in last 24 hours and her mental status has deteriorated. I talked with Alice, who is in [place] for an appointment for her son. Discussed routine dosing of hydromorphone considering increased confusion and limited ability to articulate symptoms. Alice is definitely agreeable to this. Will order hydromorphone 0.5mg every six hours. Continue prn dosing. (2) Palliative care encounter: Plan: Ingris had a good day yesterday, more lethargic today. Her condition is very tenuous. She is likely to have progressive lethargy with uremia and is at risk for acute bleeding. Anticipate that she will in the next few days. (3) Cirrhosis: (4) DIC (disseminated intravascular coagulation): (5) Upper GI bleeding: (6) Acute kidney injury: Admission and Anticipated Discharge Date Admission Date: July 04, 2021 Subjective Two doses of dilaudid in last 24 hours for pain. She is currently complaining of back pain, not relieved with repositioning. She is more lethargic and has mild confusion today. Review of Systems Review of Systems: Fine Symptom Assessment Scale Pain 2/3 Dyspnea 0/3 Anxiety 1/3 Fatigue 2/3 Nausea 0/3 Palliative Performance Score 30% Physical Exam Constitutional: + ill appearing Respiratory: normal respiratory effort; no labored breathing Cardiovascular: Extremities: + edema Gastrointestinal (Abdomen): distended Skin: + jaundice PG Care Time/CCT Total # of Minutes Spent Total Time Spent: 27 Total Time Spent with Patient: Total time spent is greater than 50% in coordination of care (as documented) at patient's floor/unit and/or counseling patient:symptom management, family education and support, prognosis Coding Level of Care Code 08777 Subseq Hosp Care Lvl 2 Diagnoses Back pain M54.9 Palliative care encounter Z51.5 Cirrhosis K74.60 DIC (disseminated intravascular coagulation) D65 Upper GI bleeding K92.2 Acute kidney injury N17.9
[2021-07-18] MEDS: HYDROmorphone INJ 0.5 MG/0.5 ML SYR IV SCH ×2 (13:02→18:04)
--- NOTE | 2021-07-18 20:14 | Hospitalist Progress Note ---
Date of Service July 18, 2021 Assessment & Plan (1) Palliative care patient: Plan: cont comfort care pathway including naidu, pain meds, etc anticipate pt's passing next 2-3 days (2) Need for comfort care: (3) Acute blood loss anemia: Plan: presumed 2nd to upper GI bleeding, potentially even variceal in nature. PPI/octreotide drips stopped - transitioned to comfort care. (4) Upper GI bleeding: Plan: Esophageal varices vs PUD vs gastritis vs AVMs vs combination of factors vs other. Drips stopped; transitioned to comfort care. (5) Encephalopathy acute: Plan: multifactorial having a good day today with family at bedside. however, with worsening uremia, suspect things will worsen next 2-3 days. (6) Hyperkalemia: Plan: 2nd to CHARLI. Transition to comfort care - no Rx. (7) DIC (disseminated intravascular coagulation): Plan: Possible. Coags high, d-dimer very high, FDP high, platelets low, active GI bleeding. Had received transfusional support for such including PRBCs, platelets, cryo; +/- FFP. At minimum her advanced cirrhosis caused synthetic dysfunction leading to loss of coagulation factor production, fibrinogen, etc. (8) Acute kidney injury: Plan: Likely hepatorenal syndrome type 1. severely Oliguric. Had not improved despite maximal medical efforts. Was not an HD candidate. (9) Coagulopathy: Plan: 2nd to advanced cirrhosis (10) Ascites due to alcoholic cirrhosis: Plan: ongoing severe she reports no pain today (11) COPD (chronic obstructive pulmonary disease): Plan: NC O2 for comfort (12) Hepatic encephalopathy: (13) Hypertension: Plan: h/o (14) Hypothyroidism: (15) Pacemaker: (16) Permanent atrial fibrillation: (17) Portal hypertension with esophageal varices: (18) Thrombocytopenia: Plan: SEVERE was 2nd to advanced cirrhosis could not exclude DIC (19) UTI (urinary tract infection): Plan: treated while here (20) Gastric bypass status for obesity: (21) Hyponatremia: Plan: cont comfort care pathway much appreciation to palliative care team kayla extensively updated by phone this evening Admission and Anticipated Discharge Date Admission Date: July 04, 2021 Subjective patient was sleeping upon my arrival woke to her name being called stated "I'm tired" and also that she was cold rapidly went back to sleep very confused again minimal UOP present overnight Review of Systems Review of Systems: Unobtainable due to cognitive status and Unobtainable due to reduced consciousness Physical Exam Physical Exam: gen - lethargic, confused skin - ecchymoses in various locations neck - JVD present mouth - MM remain dry heart - RR, irregular, s1 s2, no murmur lungs - decreased BS bases abd - severe distension with ascites; NT ext - 2-3+ pitting edema all 4 extremities, pulses <1+ b/l, very cool feet PG Care Time/CCT Total # of Minutes Spent Total Time Spent with Patient: Total time spent is greater than 50% in coordination of care (as documented) at patient's floor/unit and/or counseling patient: Coding Level of Care Code 53504 Subseq Hosp Care Lvl 1 Diagnoses Acute blood loss anemia D62 Upper GI bleeding K92.2 Encephalopathy acute G93.40 Hyperkalemia E87.5 DIC (disseminated intravascular coagulation) D65 Acute kidney injury N17.9 Coagulopathy D68.9 Ascites due to alcoholic cirrhosis K70.31 COPD (chronic obstructive pulmonary disease) J44.9 Hepatic encephalopathy K72.90 Hypertension I10 Hypothyroidism E03.9 Pacemaker Z95.0 Permanent atrial fibrillation I48.21 Portal hypertension with esophageal varices K76.6; I85.00 Thrombocytopenia D69.6 UTI (urinary tract infection) N39.0 Gastric bypass status for obesity Z98.84 Hyponatremia E87.1 Need for comfort care Palliative care patient Z51.5
[2021-07-19] MEDS: HYDROmorphone INJ 0.5 MG/0.5 ML SYR IV SCH ×3 (00:28→11:03)
--- NOTE | 2021-07-19 12:54 | Death Pronouncement Note ---
Date of Service July 19, 2021 Pronouncement Note Admission Date Admission Date: July 04, 2021 Date and Time of Date of : 07/19/21 Time of : 12:00 PCOD Preliminary cause of : Hepatorenal syndrome Contributing Factors (1) Palliative care patient: (2) Need for comfort care: (3) Acute blood loss anemia: (4) Upper GI bleeding: (5) Encephalopathy acute: (6) Hyperkalemia: (7) DIC (disseminated intravascular coagulation): (8) Acute kidney injury: (9) Coagulopathy: (10) Ascites due to alcoholic cirrhosis: (11) COPD (chronic obstructive pulmonary disease): (12) Hepatic encephalopathy: (13) Hypertension: (14) Hypothyroidism: (15) Pacemaker: (16) Permanent atrial fibrillation: (17) Portal hypertension with esophageal varices: (18) Thrombocytopenia: (19) UTI (urinary tract infection): (20) Gastric bypass status for obesity: (21) Hyponatremia: Additional Data Confirmation of : no pulse, no respirations, no heart sounds, pupils fixed and dilated and other (no response to pain or voice) Family: contacted Attending/PCP notified?: Yes Attending physician: Beto Cui Was code activated?: No Autopsy requested?: No employee operations examiner notified?: No Organ bank notified?: Yes Coding Level of Care Code None Diagnoses Palliative care patient Z51.5 Need for comfort care Acute blood loss anemia D62 Upper GI bleeding K92.2 Encephalopathy acute G93.40 Hyperkalemia E87.5 DIC (disseminated intravascular coagulation) D65 Acute kidney injury N17.9 Coagulopathy D68.9 Ascites due to alcoholic cirrhosis K70.31 COPD (chronic obstructive pulmonary disease) J44.9 Hepatic encephalopathy K72.90 Hypertension I10 Hypothyroidism E03.9 Pacemaker Z95.0 Permanent atrial fibrillation I48.21 Portal hypertension with esophageal varices K76.6; I85.00 Thrombocytopenia D69.6 UTI (urinary tract infection) N39.0 Gastric bypass status for obesity Z98.84 Hyponatremia E87.1
--- NOTE | 2021-07-19 12:54 | Discharge Summary ---
Date of Service Date of Admission: July 04, 2021 Date of : 07/19/21 Time of : 12:00 Admission HPI Per Admitting Provider 61 yo F with hx alcoholic cirrhosis, CHF, CAD, COPD, pacemaker brought to ER by her daughter for feeling progressively ill over the past 2 to 3 weeks. She denies any particular event that happened a few weeks ago but says that she feels like she has been doing very well. She denies any fevers, chills, chest pain, shortness of breath. She feels generally weak currently lives alone at home. Admission Exam (Per Admitting) On day of - pupils fixed/dilated; no audible heart tones; no palpable pulse; no spontaneous respiratory effort; no response to pain/voice. Discharge Data Consultations 07/03/21 08:43 Consult Health Information Management Routine 07/03/21 10:53 Consult Gastroenterology Routine 07/03/21 10:55 Consult Cardiology Routine 07/03/21 17:37 Consult Nephrology Routine 07/03/21 21:31 Consult Patient Services Routine 07/04/21 15:53 Consult Palliative Care Routine 07/16/21 09:43 Consult Hematology Routine Pulmonary/Controlled Area Checker Procedures Performed Abdomen/Pelvis CT 07/02/21 23:26 CT SCAN OF THE ABDOMEN AND PELVIS WITHOUT IV CONTRAST CLINICAL HISTORY: Jaundice. Generalized edema. COMPARISON STUDY: Fluoroscopic upper GI series dated 01/22/2015. TECHNIQUE: CT scan of the abdomen and pelvis is performed from the lung bases to the proximal femora. Images are reviewed in the axial, sagittal, and coronal planes. IV contrast was not administered for this examination. Note that the examination is significantly suboptimal without oral and IV contrast. There is also motion artifact, and streak artifact from the arms which could not be elevated above the abdomen. A dose lowering technique was utilized adhering to the principles of ALARA. CT DOSE: 2538.29 mGy.cm FINDINGS: Lung bases: The heart is mildly enlarged and without pericardial effusion. Pacemaker leads are in place. There are trace pleural effusions with dependent atelectasis. There is a small hiatal hernia. Esophageal varices are noted. Liver: The unenhanced liver is cirrhotic in morphology and heterogeneous in attenuation. There is mild hypertrophy of the left lobe and nodularity of the hepatic surface contour. There is no intrahepatic biliary ductal dilatation. Gallbladder: Surgically absent noting clips in the gallbladder fossa. Spleen: Top normal in size and homogeneous in attenuation. Pancreas: The unenhanced pancreas is atrophic and grossly unremarkable. Adrenal glands: Unremarkable. Kidneys: The unenhanced kidneys are atrophic and without hydronephrosis. There are no renal calculi identified. There is no evidence of contour deforming renal mass lesion. Abdominal vasculature: The abdominal aorta is normal in course and caliber noting advanced atherosclerotic calcification. Bowel: There is moderate to advanced colonic diverticulosis without clear CT evidence of acute diverticulitis. No bowel obstruction is identified wall thickening of the right colon is nonspecific and likely represents portal colopathy. Postoperative change is consistent with a history of gastric bypass surgery. The appendix is normal as visualized. Peritoneum: There is a moderate volume of abdominopelvic ascites. No intraperitoneal free air is seen. Postoperative change is noted in the ventral abdominal wall. Lymphadenopathy: There are numerous mildly enlarged upper abdominal lymph nodes. A gastrohepatic node measures 17 mm in short axis. Pelvic viscera: The bladder is normal as visualized. The uterus is surgically absent. No adnexal lesion is seen. Skeletal structures: The skeletal structures are osteopenic. No lytic or blastic lesions are seen. There are healed left-sided rib fractures. Mild to moderate lumbosacral spondylosis is observed. Soft tissues: There is anasarca of the body wall. Asymmetric soft tissue edema is seen within the left chest wall and in the left breast where there is overlying dermal thickening. IMPRESSION: 1. Significantly suboptimal examination without oral and IV contrast. The examination is also compromised by streak and motion. 2. Cirrhotic liver morphology. 3. A moderate volume of abdominopelvic ascites and esophageal varices indicate portal hypertension. 4. Wall thickening of the right colon is nonspecific and likely related to portal colopathy. Clinical correlation will be required. 5. Cardiomegaly and small pleural effusions. 6. Mildly enlarged upper abdominal lymph nodes are nonspecific and likely related to chronic liver disease. 7. There is anasarca of the body wall. 8. Asymmetric soft tissue edema is noted in the left chest wall/breast with overlying dermal thickening. Correlate clinically. 9. Additional findings as above. ACT 112: Negative or not required by law. Electronically signed by: Ganesh Crowley M.D. 07/03/2021 8:[address] 07/02/21 23:26 CT head/brain wo con CLINICAL HISTORY: 61 years-old Female with AMS. Acutely altered mental status TECHNIQUE: Multiple axial CT images of the head were obtained without contrast. A dose lowering technique was utilized adhering to the principles of ALARA. COMPARISON: None. FINDINGS: No acute intracranial hemorrhage, midline shift, intracranial mass, hydrocephalus, territorial ischemia or abnormal extra-axial collection. Age- related involutional changes. Mild white matter hypodensities suggest chronic m icrovascular ischemic disease. Ill-defined area of decreased attenuation measuring approximately 1.3 cm within the right frontal lobe centrum semiovale on image 25 series 2, likely on a basis of chronic microvascular ischemic disease. The calvarium is intact. Prior bilateral lens repair. The paranasal sinuses, mastoid air cells, and middle ear cavities are clear. IMPRESSION: No acute intracranial abnormality. ACT 112: Negative or not required by law. The above report was generated using voice recognition software. It may contain grammatical, syntax or spelling errors. Electronically signed by: Vicente Calvillo M.D. 07/03/2021 6:51 AM Chest X-Ray 07/03/21 02:48 XR chest 1V portable HISTORY: 61 years-old Female chf acute shortness of breath with congestive heart failure COMPARISON: CT abdomen and pelvis of same day TECHNIQUE: Portable AP view of the chest FINDINGS: Cardiac silhouette is enlarged. Left subclavian pacer. Mild pulmonary vascular congestion without overt pulmonary edema. Trace pleural effusions. No pneumothorax. Degenerative changes of the shoulders and spine with ORIF changes of the left proximal humerus. IMPRESSION: 1. Cardiomegaly and pulmonary vascular congestion without overt pulmonary edema. 2. Trace pleural effusions. ACT 112: Negative or not required by law. The above report was generated using voice recognition software. It may contain grammatical, syntax or spelling errors. Electronically signed by: Vicente Calvillo M.D. 07/03/2021 8:34 AM Paracentesis Ultrasound 07/04/21 00:00 ULTRASOUND-GUIDED THERAPEUTIC PARACENTESIS: HISTORY: Ascites. Procedure: The procedure and its risks, benefits and alternatives were discussed with the patient and written informed consent was obtained. Preliminary ultrasound of the abdomen was performed to determine a safe needle entry site. The left lower quadrant was prepped and draped in the usual sterile fashion. 1% Lidocaine was used for local anesthesia. A paracentesis needle-sheath was inserted into the peritoneal space using ultrasound guidance. The needle was removed and the sheath was connected to tubing and a vacuum suction device. A total of 3 liters of yellow ascites was aspirated. The sheath was removed and a sterile dressing applied. The patient tolerated the procedure well and there were no immediate complications. IMPRESSION: Ultrasound-guided therapeutic paracentesis with aspiration of 3 liters of ascites. ACT 112: Negative or not required by law. Electronically signed by: Tevin Kim M.D. 07/04/2021 10:17 AM Tibia/Fibula X-Ray 07/04/21 11:47 XR tibia fibula RT 2V HISTORY: 61 years-old Female trauma, eval fx acute pain of the right lower leg status post trauma COMPARISON: None TECHNIQUE: 2 views of the right tibia and fibula FINDINGS: There is diffuse soft tissue prominence of the lower leg. No opaque foreign body. Demineralized bones without acute fracture, dislocation or opaque foreign body. Osteoarthritis of the knee and ankle. IMPRESSION: Soft tissue swelling without acute fracture. ACT 112: Negative or not required by law. The above report was generated using voice recognition software. It may contain grammatical, syntax or spelling errors. Electronically signed by: Vicente Calvillo M.D. 07/04/2021 2:04 PM KUB X-Ray 07/06/21 06:17 XR KUB/Abdomen 1 view CLINICAL HISTORY: Constipation TECHNIQUE: 1 view of the abdomen was obtained. Comparison: None available at the time of this dictation. FINDINGS: Lung bases are unremarkable. The osseous structures are grossly unremarkable. The bowel gas pattern is nonobstructive. A moderate amount of stool is noted within the large bowel. IMPRESSION: Nonobstructive bowel gas pattern. ACT 112: Negative or not required by law. Electronically signed by: Aj Gutierrez M.D. 07/06/2021 9:59 AM Portal Vein US 07/14/21 20:16 US duplex portal hepatic veins CLINICAL HISTORY: GI bleed. Assess for portal vein thrombosis. COMPARISON STUDY: Abdomen and pelvis CT 07/03/2021. FINDINGS: Nodular contour to the liver consistent with cirrhosis. There is a small amount of ascites identified. The main portal vein is not clearly identified. However, there is increased vascularity at the hepatic hilum concerning for cavernous transformation in the setting of chronic portal vein thrombosis. There is reversal of flow of the left portal vein. Hepatic veins appear patent. The hepatic arteries are also patent. The splenic vein near the splenic hilum is patent. The residual splenic vein is obscured by overlying bowel gas. IMPRESSION: 1. The main portal vein is not clearly identified. However, there is increased vascularity at the hepatic hilum concerning for cavernous transformation. There is reversal flow within the left portal vein. 2. The hepatic veins appear patent. 3. Cirrhotic liver with a small amount of ascites. ACT 112: Negative or not required by law. Electronically signed by: Tevin Kim M.D. 07/15/2021 7:21 AM Venous Doppler Study 07/14/21 20:16 LEFT LOWER EXTREMITY VENOUS DOPPLER CLINICAL HISTORY: Left leg swelling. Evaluate for deep venous thrombus. COMPARISON STUDY: No previous studies for comparison. TECHNIQUE: Sonography of the deep venous system of the left lower extremity was performed. Compression and augmentation were evaluated. FINDINGS: The left common femoral, superficial femoral and popliteal veins were compressible. Augmentation was normal. Flow was shown within the deep calf vessels. Note is made of left lower extremity subcutaneous edema. IMPRESSION: No evidence of deep venous thrombus within the left lower extremity. ACT 112: Negative or not required by law. Electronically signed by: Manas Montenegro M.D. 07/15/2021 6:45 AM Renal Ultrasound 07/15/21 15:17 RENAL ULTRASOUND CLINICAL HISTORY: Decreased urine output. COMPARISON STUDY: CT of the abdomen and pelvis July 03, 2021. TECHNIQUE: Sonography of the kidneys and the urinary bladder was performed. FINDINGS: Moderate to large ascites is noted. The right kidney measures 10.7 cm in maximal dimension. There is no right hydronephrosis. No right renal calculus or mass is identified. The left kidney and bladder were not visualized. IMPRESSION: 1. No right hydronephrosis. Nonvisualization of the left kidney. 2. Moderate to large ascites. ACT 112: Negative or not required by law. Electronically signed by: Manas Montenegro M.D. 07/16/2021 7:50 AM Additional procedures - 1. PRBCs infusion 2. Cryoprecipitate infusion 3. Platelets infusion Hospital Course (1) Palliative care patient: Patient was transitioned to a comfort care pathway on 07/16/21 after discussion between the palliative care team & the patient's POA. (2) Need for comfort care: (3) Hepatorenal syndrome: Likely cause of her rapid, progressive acute renal failure. Type 1 suspected. (4) Acute blood loss anemia: presumed 2nd to upper GI bleeding, potentially even variceal in nature. PPI/octreotide drips were employed but ultimately stopped when she was transitioned to comfort care. (5) Upper GI bleeding: Esophageal varices vs PUD vs gastritis vs AVMs vs combination of factors vs other. PPI/octreotide drips stopped; transitioned to comfort care. (6) Encephalopathy acute: METABOLIC. multifactorial throughout her stay - hepatic encephalopathy + UTI + uremia + other factors. was confused for the majority of her stay. (7) Hyperkalemia: 2nd to CHARLI. (8) DIC (disseminated intravascular coagulation): Possible. Coags were high, d-dimer was very high, FDP were high, platelets were low, and she had active GI bleeding. Had received transfusional support for such including PRBCs, platelets, cryo; +/- FFP. At minimum her advanced cirrhosis caused synthetic dysfunction leading to loss o f coagulation factor production, fibrinogen, etc. (9) Acute kidney injury: Likely hepatorenal syndrome type 1. severely Oliguric/early Anuric. Had not improved despite maximal medical efforts. Was not an HD candidate. Transitioned to comfort care. (10) Coagulopathy: 2nd to advanced cirrhosis (11) Ascites due to alcoholic cirrhosis: ongoing severe never had pain during her hospitalization but SBP could not be ruled out (12) COPD (chronic obstructive pulmonary disease): (13) Hepatic encephalopathy: (14) Hypertension: h/o (15) Hypothyroidism: (16) Pacemaker: (17) Permanent atrial fibrillation: (18) Portal hypertension with esophageal varices: (19) Thrombocytopenia: SEVERE was 2nd to advanced cirrhosis could not exclude DIC (20) UTI (urinary tract infection): treated while here (21) Gastric bypass status for obesity: (22) Hyponatremia: The patient had a protracted hospitalization initially marked by evidence of volume overload in the setting of her advanced cirrhosis. She was diuresed and also underwent paracentesis of 3 liters fairly early in her stay. She was encephalopathic for much of her stay and the cause of such was likely multifactorial. Metabolic factors including elevated ammonia, UTI, acute renal failure, hyponatremia, etc were all at play. I could not rule out SBP; however, she received IV antibiotics to cover for such. On July 13 the patient began to pass melena stools and on July 14 her hemoglobin dropped to <7. She was started on PPI drip along with octreotide drip due to presumed upper GI bleed. Transfusional support was given. In the midst of this GI bleed [facility] were consulted. Preparations were being made to perform EGD. Unfortunately her renal function was worsening and her mental status worsened even further. On 07/14 she was transferred to the ICU because of her multi-organ failure. There was suggestion that she had DIC based on lab studies. She had bleeding from her oral mucous membranes in addition to GI bleeding. Despite maximal medical efforts her overall situation did not improve. Her uremia/renal function continued to worsen, hyperkalemia remained refractory, and she had evidence of ongoing GI bleeding. EGD was going to be pursued but was ultimately deferred as it was felt to be too high-risk. Palliative care was consulted, and after much discussion with her niece who was the patient's POA, it was decided to transition the patient to comfort care measures. She was transferred from the ICU to the med/surg floor where she remained on comfort until her passing on 07/19/2021. Coding Level of Care Code D/C DAY MANAGEMENT <30 MINS Diagnoses Palliative care patient Z51.5 Need for comfort care Acute blood loss anemia D62 Upper GI bleeding K92.2 Encephalopathy acute G93.40 Hyperkalemia E87.5 DIC (disseminated intravascular coagulation) D65 Acute kidney injury N17.9 Coagulopathy D68.9 Ascites due to alcoholic cirrhosis K70.31 COPD (chronic obstructive pulmonary disease) J44.9 Hepatic encephalopathy K72.90 Hypertension I10 Hypothyroidism E03.9 Pacemaker Z95.0 Permanent atrial fibrillation I48.21 Portal hypertension with esophageal varices K76.6; I85.00 Thrombocytopenia D69.6 UTI (urinary tract infection) N39.0 Gastric bypass status for obesity Z98.84 Hyponatremia E87.1 Hepatorenal syndrome K76.7 Time Spent (min) 25
== END 2021-07-19 15:29 | disposition expired | DRG 432 ==
LOC: ED 20:44 → 3N 20:44 → SUATTDRO 07-03 02:02 → 3N 07-03 02:34 → 2N 07-03 12:15 → SUATTDRO 07-04 13:18 → 1E 07-14 20:04 → 3E 07-16 17:48